=== PATIENT | female | born 1970 | race Caucasian/White ===

== ENCOUNTER 2017-11-08 14:49 | Outpatient (RCR) | payer MEDICARE, SELFPAY ==
--- NOTE | 2017-11-08 15:00 | PTTR_ITS ---
DATE: 11/08/17 SUBJECTIVE: Sarah reports she has been riding her adult tricycle in [facility]. Her mother and care provider attends this activity with her. She sustained one fall from turning too quickly off the edge of the pavement. Admits her R shoulder was quite sore, but this was nearly 3 weeks ago and she feels that these symptoms have resolved. RE-CHECK: Patient's AROM of the R shoulder is non-producing for pain. She has full AROM flexion, IR/ER. (-) horizontal adduction stress test. Neuromuscular Re-education [id number]: Balance, proprioceptive training, working in some static standing positions with feet shoulder width apart. She is now able to tolerate 2 mins of static standing. Therapeutic procedures ([id number]). Stabilization training in quadruped positions with varied arms, knee positions to decrease base of support. When doing so, we do not have to offer much perturbation as this is challenging enough for her. Really work on quality of motion with returning hand to start position she tends to increase her base of support and shift her hips posteriorly. Requires verbal and tactile cues for this. Then worked on some sit to stand transfers, we work on this without assistance, but with supervision, positioning myself anteriorly for her. She does stand- she tends to assume a hyperflexed hip position altering her center of gravity over base of support, so we really work on upright posture getting the shoulder blades back, pulling her trunk back over the base of support with better stability. Still significant ataxia on the L which is quite limiting for her to perform this activity. Direct treatment time: 60 mins Total treatment time: 60 mins A: Still not safe to ambulate independently despite her desire to do so. She is independent in her kitchen along the counter side stepping. She has been doing this independently quite sometime now. With regards to walking with her walker independently, this is not feasible at this time from a safety stand point. Her ataxia is her biggest limiting factor, especially on her L. Very receptive to progression for home program and is very motivated to participate in therapy. NO AC joint involvement following her fall from her tricycle. P: Re-check in one month for review of HEP and progression as needed. MM/dl
== END 2017-11-24 23:59 | disposition home or self-care (01) ==
LOC: PT 14:49
PROVIDERS: PCP Family Medicine; Referring Provider Family Medicine; Visit Provider Family Medicine
DX: I69.393 Ataxia following cerebral infarction (principal)
CPT/HCPCS: 97110; 97112

== ENCOUNTER 2017-12-26 16:34 | Outpatient (REF) | payer MEDICARE, SELFPAY ==
--- NOTE | 2017-12-26 16:00 | PAPFT_PTH ---
PATIENT: Sarah Staley LOC: [facility] U#:[id number] AGE/SX: 47/F ROOM: RE12/26/[address]: Christianne Aldridge MD : 1970 BED: DIS: 12/26/2017 SPEC #: [id number] RECD: 12/26/17 18:21 STATUS: ELY REQ #: [id number] INDERJIT: 12/26/17 16:[address]: Christianne Aldridge DEPT: [facility] Cytology RECD BY: Debbie Skelton ENTERED: 12/26/17 18:22 SP TYPE: PAPFT OTHR DR: Eduardo Willis MD Tissues: 1 - CX/ENDOCX FOR PAP SMEARS Procedures: PAP THIN PREP/UVM Screening HPV DNA PROBE Comments: [id number]
== END 2017-12-26 16:54 ==
LOC: LBN 16:34
PROVIDERS: PCP Family Medicine; Visit Provider Obstetrics & Gynecology
DX: Z12.4 Encounter for screening for malignant neoplasm of cervix (principal); Z11.51 Encounter for screening for human papillomavirus (HPV)
CPT/HCPCS: 88142; 87624

== ENCOUNTER 2017-12-28 00:40 | Outpatient (CLI) | payer MEDICARE, SELFPAY ==
--- NOTE | 2017-12-28 13:38 | DI.COMBO_ITS ---
SYMPTOMS/DIAGNOSIS: RIGHT BREAST MASS, R92.0 RIGHT MAMMOGRAM, ADDITIONAL VIEWS OF THE RIGHT BREAST AND RIGHT BREAST ULTRASOUND: Mammograms were interpreted according to the usual protocol including computer analysis with CAD system, tomosynthesis and C view imaging. Comparison is with the prior examinations. No suspicious masses or microcalcifications are seen. The skin and axillae are unremarkable. A right breast ultrasound was performed. All four quadrants of the right breast were evaluated sonographically. No cystic or solid masses are present. IMPRESSION: No evidence for malignancy. Negative mammogram and ultrasound should not preclude biopsy of a clinically suspicious mass. Yearly mammography is recommended. Category 1, breast density D. The findings were discussed with the patient on the date of the examination. [facility] ASSESSMENT OF FINDINGS: Negative. Category 1. Patient will receive a letter notifying them of these results. BI-RADS category D. The breasts are extremely dense, which lowers the sensitivity of mammography.
== END 2017-12-28 01:00 ==
PROVIDERS: PCP Family Medicine; Visit Provider Obstetrics & Gynecology
DX: N63.10 Unspecified lump in the right breast, unspecified quadrant
CPT/HCPCS: 76642; 77061; 77065; G0279

== ENCOUNTER 2019-05-11 13:17 | Emergency (ER) | payer MEDICARE, SELFPAY ==
[2019-05-11] VITALS (37 sets, daily range): BP systolic 109–144; BP diastolic 65–125; PULSE 70–138; RESP 12–25; TEMP 36.6–36.7; O2SAT 95–100
[2019-05-11] MEDS: Normal Saline 1,000 ML 1000 ML IV (13:34)
[2019-05-11] MEDS: diphenhydrAMINE 50 MG/ML VIAL 25 MG IVP (13:49)
[2019-05-11] MEDS: LORazepam 2 MG/ML VIAL 1 MG IVP (13:50)
--- NOTE | 2019-05-11 13:52 | W.ED.GENAD ---
Discharge Plan Disposition Patient Disposition: [facility] Condition: Serious Discharge Details Chief Complaint: Seizure Clinical Impression: Seizure Primary Care Provider: Eduardo Willis ED Provider: Ish Bhat Home Meds and New Rx's Prescriptions: No Action lorazepam 0.5 mg tablet 0.5 mg PO DAILY PRN (Reason: anxiety) Qty: 20 RF: 0 duloxetine 60 mg capsule,delayed release(DR/EC) 60 mg PO BID Qty: 180 RF: 3 buspirone 15 mg tablet 15 - 30 mg PO BID Qty: 90 RF: 11 Medical Decision Making 14:00 --notified by registration the patient was having seizure-like activity in the car at entrance to emergency department. I ran out with nursing to assist patient. Patient was unresponsive with what appears to be tonic-clonic activity on arrival and had vomited. Patient was transitioned from passenger seat of car to stretcher and wheeled immediately to critical care room. Ms. Staley is a 49-year-old female with prior history of CVA and brain tumor status post resection, with history of chronic ataxia, here with altered mental status after seizure-like activity. Patient is no longer exhibiting tonic-clonic seizure activity. She is quite altered. Patient is agitated and attempting to remove IV and monitor. Restraints were applied to protect patient. Patient was administered Ativan 1 mg IV. This had no significant effect. A second Ativan 1 mg IV and Benadryl 25 mg IV was administered. Patient did seem to calm down and be more relaxed and cooperative after second dose with Benadryl. Screening ECG was reviewed and interpreted by me: Significant artifact due to movement, sinus tachycardia 131 bpm, short NM interval is noted with NM interval of 116. Patient remains altered this time and suspect post ictal. Unclear etiology for seizure activity. Consider recurrent brain mass versus other. Plan to obtain stat CT head. 15:00 --labs reviewed: Anion gap acidosis noted. Patient was given keppra [address] of the head was interpreted by radiology: Left devon-cavernous mass, 3 cm, suspect meningioma. I called [facility] to request transfer. Images have been sent. Awaiting callback. 15:15 -- Spoke with Dr. Caballero who will accept patient in transfer. Awaiting bed availability. Chest x-ray was reviewed and interpreted by radiology: No acute cardiopulmonary findings. Medical Records Medical records reviewed: Yes I reviewed the patient's medical records. 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 Clinic note makes reference to MRI of the brain August 22, 2018 that reveals no diffusion-weighted abnormalities or mass-effect. Postoperative changes of the left retromastoid region status post resection of left cerebellopontine angle/cerebellar lesion with resultant encephalomalacia and gliosis of the left brachium pontis, left cerebellum, dorsal midbrain and left posterior mooeny radiata. Lab Data Lab results reviewed: Yes I reviewed the patient's lab results. HPI General Date/Time Provider Initiated Documentation: 05/11/19 13:21. Limitations to Documentation: altered mental status. Information obtained by: family. HPI Narrative: 49-year-old female with prior history of brain tumor status post resection, CVA, depression, arrives by private vehicle with friend/alley cleaner with altered mental status. History and review of systems limited secondary to altered mental status. Per the patient's friend/alley cleaner, patient was at primary care appointment with Dr. Burrell across the street, completed appointment and ambulated to the car with assistance at baseline. Shortly thereafter she was nonresponsive to questioning, started making incomprehensible noises and then had full body spasm. Entire episode lasted a few minutes. She did vomit. Stave Hewer/friend notes that Sarah is fairly high functioning on her own but that she has had noticeable decline in mentation, specifically noting confusion, worsening over the past few months. Related Data Home Medications Medication Instructions Recorded Confirmed duloxetine 60 mg capsule,delayed 60 mg PO BID #180 cap 08/21/18 05/11/19 release lorazepam 0.5 mg tablet 0.5 mg PO DAILY PRN #20 tab 09/27/18 05/11/19 buspirone 15 mg tablet 15 - 30 mg PO BID #90 tab-cap 05/06/19 05/11/19 Previous Rx's Medication Instructions Recorded duloxetine 60 mg capsule,delayed 60 mg PO BID #180 cap 08/21/18 release lorazepam 0.5 mg tablet 0.5 mg PO DAILY PRN #20 tab 09/27/18 buspirone 15 mg tablet 15 - 30 mg PO BID #90 tab-cap 05/06/19 Allergies Allergy/AdvReac Type Severity Reaction Status Date / Time bupropion AdvReac Severe MENTAL Verified 11/28/18 15:17 STATUS CHANGE oxycodone AdvReac Intermediate night harper Unverified 11/28/18 15:17 General Stated Complaint: Seizure NETO: 2 Review of Systems Unobtainable due to mental status [facility] Medical History 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 Anupama PARSONS Colonoscopy - MAC (05/24/13) Colonoscopy - MAC (06/19/17) Excision, Lesion (06/07/16) sacral lesion, fibroadipose tissue Excision, Lipoma (04/04/14) ABDOMINAL WALL Tonsillectomy (~1997) Family History Mother Diabetes Heart disease Hyperlipidemia Father Diabetes Essential hypertension Heart disease Hyperlipidemia Sister Diabetes Depression Brother , AGE 32 Stroke Essential hypertension Hyperlipidemia Maternal Grandfather Diabetes Stroke Paternal Grandfather No problems noted. Maternal Grandmother No problems noted. Paternal Grandmother Alzheimer disease Depression Daughter Essential hypertension Depression Social History Smoking/Tobacco Use Status: Former Tobacco Use Tobacco: How many years used: 30 Quit status: has quit before Alcohol Intake: current Alcohol Intake frequency: a few times a month Alcohol type: beer, wine and hard liquor Drug use: Never Substance use type: does not use Caregiver/Support person: No Household members: none Housing: other Details: [facility] current occupation: disable Sexually active: No Do you think of yourself as: straight/heterosexual Current gender identity: female Duration: 60-90 minutes/day Frequency: 5-6 times per week Opal/Anglican: No preference Special opal needs: No Seatbelt use: always Additional Social history: Unable to obtain this information upon arrival. Exam Const General: in distress, anxious and combative Orientation: confused Limitations: altered mental status [facility] Head: normocephalic and atraumatic Mouth: moist mucous membranes Eyes Sclera: normal sclerae Neck Neck: trachea midline and supple Resp Auscultation: clear to auscultation bilaterally, no rales, no rhonchi and no wheezes Cardio Jugular venous pressure: no JVD Rate: tachycardic Rhythm: regular rhythm Heart Sounds: no murmurs GI Palpation: soft, not firm, no guarding, no masses, not rigid and nontender Skin General skin exam: no rashes or lesions noted Neuro General: moves all extremities, confused and other (nonverbal on arrival) Cognition: abnormal cognition Extrem General: no edema Psych Appearance: grossly normal Mental Status: mental status grossly abnormal Course Vital Signs Vital signs: Vital Signs Temperature 36.6 C 05/11/19 13:27 Pulse 112 H 05/11/19 13:27 Respiratory Rate 21 05/11/19 13:27 Blood Pressure 138/85 05/11/19 13:27 Pulse Oximetry 95 05/11/19 13:27 Temperature 36.6 C 05/11/19 13:27 Temperature Source Tympanic 05/11/19 13:27 Pulse 112 H 05/11/19 13:27 Respiratory Rate 21 05/11/19 13:27 Blood Pressure 138/85 05/11/19 13:27 Blood Pressure Position Sitting 05/11/19 13:27 Pulse Oximetry 95 05/11/19 13:27 Oxygen Delivery Method Room Air 05/11/19 13:27 Oxygen Flow Rate 0 05/11/19 13:27
[2019-05-11 13:55] LABS: Abs Immature Grans 0.02 k/cumm (0.0-0.09); Absolute Basophil Count 0.02 k/cumm (0.0-0.2); Absolute Eosinophil Count 0.02 k/cumm (0.0-0.7); Absolute Lymphocyte Count 2.77 k/cumm (1.2-3.4); Absolute Monocyte Count 0.81 k/cumm (0.11-0.7); Absolute Neutrophil Count 5.16 k/cumm (1.2-6.7); Basophils % 0.2; Eosinophils % 0.2; HCT 46.4 % (36.0-46.0); HGB 14.8 g/dL (12.0-15.5); Immature Grans % 0.2 %; Lymphocytes % 31.5; Mean Corp. HGB Concentration 31.9 g/dL (32.0-36.0); Mean Corpuscular Hemoglobin 27.3 pg (27.0-33.0); Mean Corpuscular Volume 85.5 fL (80-95); Mean Platelet Volume 10.3 fL (8.0-11.0); Monocytes % 9.2; Neutrophils % 58.7; Platelet Count 350 x1000/uL (130-400); RBC 5.43 m/cumm (4.00-5.20); RBC Distribution Width 14.7 % (11.7-14.6)
--- NOTE | 2019-05-11 14:00 | DI.CT_ITS ---
EXAM: CT HEAD WO CLINICAL HISTORY: AMS TECHNIQUE: The exam was performed without contrast. COMPARISON: Comparison with prior examinations. FINDINGS: There is a hyperdense mass measuring 3.1 cm in maximum diameter. The mass is located in the left per i cavernous and Yadi sellar region. It encroaches on the left suprasellar cistern. There is unchanged encephalomalacia involving the left cerebellum, left temporal lobe and the left ce rebella peduncles. The patient has had a prior left occipital craniotomy. No acute intracranial hemorrhage, midline shift or mass effect. No destructive osseous changes are present. The visualized paranasal sinuses are clear as are the ma stoid air cells. IMPRESSION: 3.1 centimeter hyperdense mass in the left cavernous sinus region and parasellar region. Given its a ppearance, meningioma should be considered. Recurrence of the patient's primary neoplasm cannot be e xcluded. A post contrast CT or postcontrast MRI is recommended for further evaluation.
--- NOTE | 2019-05-11 14:05 | DI.RAD_ITS ---
EXAM: XR PORTABLE CHEST AP CLINICAL HISTORY: AMS. TECHNIQUE: 2D digital imaging was performed. COMPARISON: CHEST 2 VIEWS PA,LAT from 06/23/2015 FINDINGS: LUNGS: Clear. No pleural abnormality seen. HEART: Normal. MEDIASTINUM: Normal. OTHER FINDINGS: None. IMPRESSION: No acute pulmonary findings.
--- NOTE | 2019-05-11 14:05 | NUR.NOTE ---
Nursing Note: Restraints removed at this for CT. Pt cooperating for exam. MD Bhat approves the removal of four point restraints at this time.
[2019-05-11 14:08] LABS: ALT 16 U/L (14-59); AST 12 U/L (15-37); Albumin 4.6 g/dL (3.4-5.0); Alkaline Phosphatase 68 U/L (46-116); Anion Gap 22.2 mmol/L (3-11); BUN 10 mg/dL (7-18); Bilirubin, Total 0.5 mg/dL (0.2-1.0); CO2 21.8 mmol/L (21.0-32.0); CREATININE 1.19 mg/dL (0.55-1.02); Calcium 9.1 mg/dL (8.5-10.1); Chloride 100 mmol/L (98-107); ETHANOL BLOOD 3.3 mg/dL (<3); Estimated GFR 48.62 (mL/min/1.73m2); Glucose 103 mg/dL (74-106); Magnesium 2.3 mg/dL (1.8-2.4); Potassium 3.4 mmol/L (3.5-5.1); Sodium 144 mmol/L (136-145); Total Protein 8.2 g/dL (6.4-8.2); Troponin I < 0.05 ng/Ml (<0.06)
[2019-05-11 14:09] LABS: Acetaminophen < 2 ug/mL (10-30)
--- NOTE | 2019-05-11 14:09 | NUR.NOTE ---
Nursing Note: CVA during surgery to remove brain tumor. Family reports deficits to speech and all upper and lower extremities.
--- NOTE | 2019-05-11 14:38 | RESPIRATORY ---
RT called to ED concerning a seizing patient in the parking lot. Upon RT's arrival, Pt was on 2L NC sating in 90s and upset. Once given benadryl, Pt calmed down and RT titrated O2 to 1L prior to going to CT. In CT, patient was on RA and then placed on 2L once back in ER bc of SpO2 being in the 80s. Once patient settled back into room, Rt titrated patients O2 back to 1L then RA. RT informed Dr and Nurse patient was ok and left.
--- NOTE | 2019-05-11 14:39 | NUR.NOTE ---
Nursing Note: Prior to medication administration, Pt was able to answer all questions appropriately and follow commands. At this time Pt is resting comfortably, vitals stable.
[2019-05-11 14:52] LABS: Bilirubin Negative (Negative); Blood Negative (Negative); Clarity Sl Cloudy (Clear); Glucose Negative (Negative); Ketones Negative (Negative); Leukocyte Esterase Negative (Negative); Nitrite Negative (Negative); Urobilinogen 0.2 EU/dL (Up TO 0.2)
[2019-05-11] MEDS: levETIRAcetam 1,000 MG in Normal Saline 100 ML 400 MG IVPB (14:58)
[2019-05-11 15:03] LABS: Tricyclic Antidepressants Negative (Negative)
[2019-05-11 15:06] LABS: *AMPHETAMINES SCREEN URINE Negative (Negative); *BARBITURATES SCREEN URINE Negative (Negative); *BENZODIAZEPINES SCREEN URINE Negative (Negative); Cannabinoids THC POSITIVE (Negative); Cocaine Screen,Urine Negative (Negative); METHADONE URINE SCREEN Negative (Negative); OPIATES URINE SCREEN Negative (Negative)
--- NOTE | 2019-05-11 15:08 | DI.VRAD_ITS ---
PROCEDURE INFORMATION: Exam: CT Head Without Contrast Exam date and time: 05/11/2019 2:00 PM Age: 49 years old Clinical indication: Other: AMS TECHNIQUE: Imaging protocol: Computed tomography of the head without contrast. Radiation optimization: All CT scans at this facility use at least one of these dose optimization techniques: automated exposure control; mA and/or kV adjustment per patient size (includes targeted exams where dose is matched to clinical indication); or iterative reconstruction. Other technique: STROKE PROTOCOL was implemented. COMPARISON: CT HEAD WITH/WITHOUT CONTRAST 03/04/2013 2:27 PM FINDINGS: Brain: Left pericavernous/parasellar mildly hyperdense mass measuring approximately 3 cm in maximal dimension. There is encroachment of the mass into the left suprasellar cistern. Stable low-attenuation within the cerebellar peduncles (left greater than right) and left cerebellum as sequelae prior infarction and/or craniectomy. Left temporal lobe white matter low attenuation likely sequela of prior infarction. There is no evidence of acute hemorrhage within the brain parenchyma or the subarachnoid space. There is no evidence of an acute ischemic event. There is no significant ventricular effacement or midline shift.There is no evidence of uncal or subfalcine herniation. Ventricles: Ex vacuo dilatation of the posterior left lateral ventricle. Bones/joints: No definitive clinoid osseous erosion or expansion. Left low occipital craniectomy changes. Sinuses: Visualized sinuses are unremarkable. No fluid levels. Mastoid air cells: Visualized mastoid air cells are well aerated. Soft tissues: Debris within the left external auditory canal. IMPRESSION: 1. Left pericavernous/parasellar mildly hyperdense mass measuring approximately 3 cm in maximal dimension. There is encroachment of the mass into the left suprasellar cistern. No definitive left clinoid osseous erosion or expansion. Meningioma is high on the differential diagnosis. Recommend contrast-enhanced MRI if available. 2. There is no evidence of an acute ischemic event. 3. Prior left low occipital craniectomy changes. 4. Other chronic and senescent changes as above. ASSESSMENT: ASPECTS ([place] Stroke Program Early CT Score) is 10. THIS REPORT CONTAINS FINDINGS THAT MAY BE CRITICAL TO PATIENT CARE. The findings were verbally communicated via telephone conference with Dr. Bhat at 2:53 PM EST on 05/11/2019. The findings were acknowledged and understood. Dictated and Authenticated by: Justino Begum MD. Ordering:MUMTAZ Mantilla MD
--- NOTE | 2019-05-11 15:16 | DI.VRAD_ITS ---
PROCEDURE INFORMATION: Exam: XR Chest, 1 View Exam date and time: 05/11/2019 2:10 PM Age: 49 years old Clinical indication: Other: AMS; Additional info: Patients unable to follow instructions, or breathing instructions. TECHNIQUE: Imaging protocol: XR of the chest Views: 1 view. COMPARISON: CR CHEST 2 VIEWS PA,LAT 06/23/2015 1:25 PM FINDINGS: Lungs: Unremarkable. No consolidation. Pleural space: Unremarkable. No pleural effusion. No pneumothorax. Heart/Mediastinum: Unremarkable. No cardiomegaly. Vasculature: Mild atherosclerotic calcification of the aorta arch. Bones/joints: Unremarkable. IMPRESSION: No acute cardiopulmonary findings. Dictated and Authenticated by: Justino Begum MD. Ordering:MUMTAZ Mantilla MD
== END 2019-05-11 16:30 | disposition short-term general hospital (02) ==
PROVIDERS: Physician Assistant; Emergency Provider Student in an Organized Health Care Education/Training Program; PCP Family Medicine
DX: R56.9 Unspecified convulsions (principal); R41.82 Altered mental status, unspecified; I69.393 Ataxia following cerebral infarction; R45.1 Restlessness and agitation; R90.0 Intracranial space-occupying lesion found on diagnostic imaging of central nervous system; Z78.1 Physical restraint status
CPT/HCPCS: 36415; 36416; 51702; 80053; 80307; 82962; 93005; 96361; 96365; 96366; 96375; 99285; 70450; 71045; 80320; 80329; 81003; 83735; 84484; 85025; 93010; J1200; J1953; J2060

== ENCOUNTER 2019-11-06 10:14 | Outpatient (CLI) | payer MEDICARE, SELFPAY ==
[2019-11-06 12:26] LABS: Abs Immature Grans 0.01 10^3/uL (0.0-0.06); Absolute Basophil Count 0.01 10^3/uL (0.0-0.2); Absolute Eosinophil Count 0.08 10^3/uL (0.0-0.7); Absolute Lymphocyte Count 1.38 10^3/uL (1.2-3.4); Absolute Monocyte Count 0.46 10^3/uL (0.1-0.8); Absolute Neutrophil Count 3.16 10^3/uL (1.2-6.7); Basophils % 0.2; Eosinophils % 1.6; HCT 41.5 % (36.0-46.0); HGB 13.1 g/dL (11.2-15.7); Immature Grans % 0.2; Lymphocytes % 27.1; MCHC 31.6 % (32.0-36.0); MCV 85.4 fL (80-95); MPV 9.9 fL (8.0-11.0); Neutrophils % 61.9; Nucleated RBC 0 %; Platelet Count 283 10^3/uL (130-400); RBC 4.86 10^6/uL (3.93-5.22); RDW 15.1 % (11.7-14.6); RDW-SD 46.4 fL
[2019-11-06 12:38] LABS: ALT 18 U/L (14-59); AST 13 U/L (15-37); Albumin 3.8 g/dL (3.4-5.0); Alkaline Phosphatase 74 U/L (46-116); Bilirubin, Direct 0.06 mg/dL (0.00-0.20); Bilirubin, Total 0.2 mg/dL (0.2-1.0); Total Protein 6.6 g/dL (6.4-8.2)
== END 2019-11-06 10:34 ==
PROVIDERS: PCP Family Medicine; Visit Provider Psychiatry & Neurology Neurology
DX: R56.9 Unspecified convulsions (principal); Z79.899 Other long term (current) drug therapy; Z51.81 Encounter for therapeutic drug level monitoring
CPT/HCPCS: 36415; 80076; 80185; 85025

== ENCOUNTER 2019-11-15 00:53 | Outpatient (CLI) | payer MEDICARE, SELFPAY ==
[2019-11-15 12:50] LABS: Absolute Basophil Count 0.02 10^3/uL (0.0-0.2); Absolute Eosinophil Count 0.06 10^3/uL (0.0-0.7); Absolute Lymphocyte Count 1.16 10^3/uL (1.2-3.4); Absolute Monocyte Count 0.42 10^3/uL (0.1-0.8); Absolute Neutrophil Count 2.24 10^3/uL (1.2-6.7); Basophils % 0.5; Eosinophils % 1.5; HCT 41.4 % (36.0-46.0); HGB 13.5 g/dL (11.2-15.7); Lymphocytes % 29.7; MCH 27.3 pg (27.0-33.0); MCHC 32.6 % (32.0-36.0); MCV 83.6 fL (80-95); MPV 10.2 fL (8.0-11.0); Monocytes % 10.8; Neutrophils % 57.5; Nucleated RBC 0 %; Platelet Count 223 10^3/uL (130-400); RBC 4.95 10^6/uL (3.93-5.22); RDW 15.1 % (11.7-14.6); RDW-SD 46.1 fL
[2019-11-15 13:05] LABS: ALT 38 U/L (14-59); AST 19 U/L (15-37); Alkaline Phosphatase 77 U/L (46-116); Bilirubin, Direct 0.06 mg/dL (0.00-0.20); Bilirubin, Total 0.2 mg/dL (0.2-1.0); Total Protein 6.8 g/dL (6.4-8.2)
[2019-11-15 13:09] LABS: PHENYTOIN (DILANTIN) 18.2 ug/mL (10.0-20.0)
[2019-11-20 10:35] LABS: Phenytoin, Free 1.8 mcg/mL
== END 2019-11-15 01:13 ==
PROVIDERS: PCP Family Medicine; Visit Provider Psychiatry & Neurology Neurology
DX: R56.9 Unspecified convulsions (principal); Z51.81 Encounter for therapeutic drug level monitoring; Z79.899 Other long term (current) drug therapy
CPT/HCPCS: 36415; 80076; 80186; 80185; 85025

== ENCOUNTER 2020-02-13 10:19 | Outpatient (CLI) | payer MEDICARE, SELFPAY ==
[2020-02-13 12:52] LABS: Abs Immature Grans 0.01 10^3/uL (0.0-0.06); Absolute Basophil Count 0.02 10^3/uL (0.0-0.2); Absolute Lymphocyte Count 1.35 10^3/uL (1.2-3.4); Absolute Monocyte Count 0.44 10^3/uL (0.1-0.8); Absolute Neutrophil Count 2.46 10^3/uL (1.2-6.7); Basophils % 0.5; Eosinophils % 2.3; HCT 41.8 % (36.0-46.0); HGB 13.6 g/dL (11.2-15.7); Immature Grans % 0.2; Lymphocytes % 30.8; MCH 27.6 pg (27.0-33.0); MCHC 32.5 % (32.0-36.0); MPV 9.8 fL (8.0-11.0); Neutrophils % 56.2; Nucleated RBC 0 %; Platelet Count 226 10^3/uL (130-400); RBC 4.92 10^6/uL (3.93-5.22); RDW 13.2 % (11.7-14.6); RDW-SD 40.9 fL; WBC 4.38 10^3/uL (4.4-10.8)
[2020-02-13 13:46] LABS: PHENYTOIN (DILANTIN) 9.7 ug/mL (10.0-20.0)
[2020-02-13 13:50] LABS: ALT 23 U/L (14-59); AST 16 U/L (15-37); Albumin 3.7 g/dL (3.4-5.0); Alkaline Phosphatase 109 U/L (46-116); Bilirubin, Direct 0.05 mg/dL (0.00-0.20); Bilirubin, Total 0.2 mg/dL (0.2-1.0); Total Protein 6.8 g/dL (6.4-8.2)
== END 2020-02-13 10:39 ==
PROVIDERS: PCP Family Medicine; Visit Provider Psychiatry & Neurology Neurology
DX: R56.9 Unspecified convulsions (principal)
CPT/HCPCS: 36415; 80076; 80185; 85025

== ENCOUNTER 2020-09-02 09:16 | Outpatient (CLI) | payer MEDICARE, SELFPAY ==
--- NOTE | 2020-09-02 | DI.CT_ITS ---
Exam(s) CT HEAD WO EXAM: CT HEAD WO CLINICAL HISTORY: SEIZURE, R56.9,HEMANGIOPERICYTOMA. TECHNIQUE: Imaging Protocol: Axial computed tomography images with coronal and sagittal reformatted images were created and reviewed COMPARISON: CT CT HEAD WO from 05/11/2019 FINDINGS: There is a craniotomy defect seen in the left temporal bone as well as left frontal parietal region. No skull fracture. There is an area of encephalomalacia seen in the left cerebellum and atrophy inv olving the left cerebral peduncle and portion of the left temporal lobe. There is some compensatory d ilatation of the left lateral ventricle related to volume loss. The previously noted mass in the left frontal temporal lobes and devon sellar region is no longer seen . No new mass, hemorrhage or infarct is seen. The sinuses and mastoid air cells are clear where visualized. On the orbits are unremarkable. IMPRESSION: Craniotomy defects and areas of encephalomalacia in the left temporal lobe and left cerebellum. Prev iously noted left parasellar mass no longer seen. No acute abnormality. RADIATION DOSE DELIVERED: 721.03mGy.cm Total DLP DATA REPOSITORY: All CT scans at this facility are submitted to the National Radiology Data Registry (NRDR) Dose Index Registry (DIR) with the [employer] (ACR). RADIATION OPTIMIZATION: All CT scans at this facility use at least one of these dose optimization te chniques: automated exposure control; mA and/or kV adjustment per patient size (includes targeted exa ms where dose is matched to clinical indication); or iterative reconstruction.
== END 2020-09-02 09:36 ==
PROVIDERS: PCP Family Medicine; Visit Provider Internal Medicine
DX: R56.9 Unspecified convulsions (principal); C71.9 Malignant neoplasm of brain, unspecified
CPT/HCPCS: 70450

== ENCOUNTER 2020-09-02 15:51 | Outpatient (CLI) | payer MEDICARE, SELFPAY ==
[2020-09-02 17:00] LABS: Abs Immature Grans 0.01 10^3/uL (0.0-0.06); Absolute Basophil Count 0.01 10^3/uL (0.0-0.2); Absolute Eosinophil Count 0.04 10^3/uL (0.0-0.7); Absolute Lymphocyte Count 1.35 10^3/uL (1.2-3.4); Absolute Monocyte Count 0.54 10^3/uL (0.1-0.8); Absolute Neutrophil Count 2.72 10^3/uL (1.2-6.7); Basophils % 0.2; Eosinophils % 0.9; HCT 35.8 % (36.0-46.0); HGB 12.2 g/dL (11.2-15.7); Immature Grans % 0.2; Lymphocytes % 28.9; MCH 27.9 pg (27.0-33.0); MCHC 34.1 % (32.0-36.0); MCV 81.7 fL (80-95); MPV 9.3 fL (8.0-11.0); Monocytes % 11.6; Neutrophils % 58.2; Nucleated RBC 0 %; Platelet Count 237 10^3/uL (130-400); RBC 4.38 10^6/uL (3.93-5.22); RDW 13.2 % (11.7-14.6); RDW-SD 39.3 fL; WBC 4.67 10^3/uL (4.4-10.8)
[2020-09-02 17:25] LABS: PHENYTOIN (DILANTIN) 9.1 ug/mL (10.0-20.0)
[2020-09-02 17:30] LABS: ALT 25 U/L (14-59); AST 34 U/L (15-37); Albumin 3.7 g/dL (3.4-5.0); Alkaline Phosphatase 88 U/L (46-116); BUN 6 mg/dL (7-18); Bilirubin, Total 0.3 mg/dL (0.2-1.0); CREATININE 0.7 mg/dL (0.55-1.02); Calcium 8.5 mg/dL (8.5-10.1); Chloride 95 mmol/L (98-107); Glucose 105 mg/dL (74-106); Sodium 132 mmol/L (136-145); Total Protein 6.4 g/dL (6.4-8.2)
== END 2020-09-02 15:52 | disposition home or self-care (01) ==
LOC: LBO 15:51
PROVIDERS: PCP Family Medicine; Visit Provider Internal Medicine
DX: R56.9 Unspecified convulsions (principal); Z51.81 Encounter for therapeutic drug level monitoring; Z79.899 Other long term (current) drug therapy; C71.9 Malignant neoplasm of brain, unspecified
CPT/HCPCS: 36415; 80053; 70450; 80185; 85025

== ENCOUNTER 2020-11-08 14:12 | Emergency (ER) | payer MEDICARE, SELFPAY ==
[2020-11-08] VITALS (14 sets, daily range): BP systolic 125–126; BP diastolic 83–101; PULSE 64–86; RESP 12–20; TEMP 36.9; O2SAT 96–100
--- NOTE | 2020-11-08 14:15 | RT.EKG_ITS ---
APPROVED REPORT Exam: Resting ECG Reason for Exam: stroke symptoms Patient Location: E HR:70 bpm ECG Measurements Heart Rate 70 AXIS MO 140 P 72 QRSd 85 QRS 54 QT 400 T 53 QTc 431 Conclusion Sinus rhythm...normal P axis, V-rate 60- 99
--- NOTE | 2020-11-08 14:37 | ED.GENADUL_ITS ---
Discharge Plan Disposition Patient Disposition: [facility] INPATIENT Condition: Stable Discharge Details Chief Complaint: CVA/TIA Clinical Impression: Dysarthria, Hyponatremia, Bacteria in urine Primary Care Provider: Eduardo Willis ED Provider: Carl Munson [place] Meds and New Rx's Prescriptions: No Action lorazepam 0.5 mg tablet 0.5 mg PO DAILY PRN (Reason: anxiety) Qty: 20 RF: 0 levetiracetam 750 mg tablet 1,500 mg PO BID Qty: 120 RF: 5 buspirone 15 mg tablet 15 - 30 mg PO BID Qty: 90 RF: 11 phenytoin sodium extended 100 mg capsule 100 mg PO BID Qty: 60 RF: 11 duloxetine 60 mg capsule,delayed release(DR/EC) 60 mg PO BID Qty: 180 RF: 3 Medical Decision Making 50 yo female with hx of seizure, meningioma, prior cva, who comes in with chief complaint of slurred speech as well as confusion. Her last known well apparently per ems was yesterday aroud 10am when family members talked to her and she had normal speech. They called her this afternoon and her speech was slurred and she seems confused so ems was called. She arrives hemodynamically stable and awake. SHe knows where she is, her name and theyear. She has mild swelling above the right eye and apparently has fallen recently per ems history, has a small 1cm laceration lateral to the orbit. Given over 24 hours since the fall will heal by secondary intention. She has no other signs of trauma. She has dysarthria and is very hard to understand most of what she is saying on exam. She denies any pain anywhere. She has right lower face droop on exam. Her NIH on exam is 5 (2 for facial palsy, 1 for language/aphasia, 2 for dysarthria). Suspect cva less likely bells palsy as the forehead is spared. Will obtain labs and ct imaging and reassess. pt's labs unremarkable other than sodium of 125 and ua does have bacteria in it, ceftriaxone ordered. She remains stable, no acute findings on ct imaging. Discussed with Dr. Otto who requested neuro consult from [facility] [place] given her history. Spoke with Dr. Leblanc from neurology at [facility] [place] who did not have any additional recommenations other than routine cva workup including mri, asa, echo. Differential Diagnosis Differential Diagnosis: cva, electrolyte abnormality, uti Lab Data Lab results reviewed: Yes I reviewed the patient's lab results. ECG Data Attestation: I personally reviewed and interpreted this ECG (s) as follows: Prior ECG tracings: not available for review Interpretation: sinus rhythm, rate of 70, pr 140, no acute st t wave ischemic findings HPI General Mode of arrival: ambulatory . Date/Time Provider Initiated Documentation: 11/08/20 14:22 . Limitations to Documentation: no limitations . Information obtained by: EMS . History of Present Illness 50 year old F presents to the emergency department with the chief complaint of slurred speech, described as moderate, Patient started experiencing this unknown and it has been constant. No relieving factors improve symptom(s), No exacerbating factors reported . Patient notes confusion. Patient did receive the following treatments prior to arrival, none Related Data Home Medications Medication Instructions Recorded Confirmed lorazepam 0.5 mg tablet 0.5 mg PO DAILY PRN #20 tab 09/27/18 11/08/20 levetiracetam 750 mg tablet 1,500 mg PO BID #120 tab 10/31/19 11/08/20 buspirone 15 mg tablet 15 - 30 mg PO BID #90 tab-cap 06/01/20 11/08/20 phenytoin sodium extended 100 mg 100 mg PO BID #60 cap 07/09/20 11/08/20 capsule duloxetine 60 mg capsule,delayed 60 mg PO BID #180 cap 10/19/20 11/08/20 release Previous Rx's Medication Instructions Recorded lorazepam 0.5 mg tablet 0.5 mg PO DAILY PRN #20 tab 09/27/18 levetiracetam 750 mg tablet 1,500 mg PO BID #120 tab 10/31/19 buspirone 15 mg tablet 15 - 30 mg PO BID #90 tab-cap 06/01/20 phenytoin sodium extended 100 mg 100 mg PO BID #60 cap 07/09/20 capsule duloxetine 60 mg capsule,delayed 60 mg PO BID #180 cap 10/19/20 release Allergies Allergy/AdvReac Type Severity Reaction Status Date / Time bupropion AdvReac Severe MENTAL Verified 11/08/20 14:33 STATUS CHANGE oxycodone AdvReac Intermediate night harper Verified 11/08/20 14:33 General Stated Complaint: CVA/TIA NETO: 2 Review of Systems All systems reviewed & are unremarkable except as noted in HPI and below Constitutional Constitutional: Denies chills and Denies fever(s) Cardiovascular Cardiovascular: Denies chest pain and Denies dyspnea Respiratory Respiratory: Denies cough and Denies dyspnea Gastrointestinal Gastrointestinal: Denies abdominal pain, Denies nausea and Denies vomiting [facility] Medical History 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 Anupama PARSONS Colonoscopy - MAC (05/24/13) Colonoscopy - MAC (06/19/17) Excision, Lesion (06/07/16) sacral lesion, fibroadipose tissue Excision, Lipoma (04/04/14) ABDOMINAL WALL Tonsillectomy (~1997) Family History Mother Diabetes Heart disease Hyperlipidemia Father Diabetes Essential hypertension Heart disease Hyperlipidemia Sister Diabetes Depression Brother , AGE 32 Stroke Essential hypertension Hyperlipidemia Maternal Grandfather Diabetes Stroke Paternal Grandfather No problems noted. Maternal Grandmother No problems noted. Paternal Grandmother Alzheimer disease Depression Daughter Essential hypertension Depression Social History Smoking/Tobacco Use Status: Former Tobacco Use Tobacco: How many years used: 30 Quit status: has quit before Smoking risk assessment performed?: Yes Alcohol Intake: current Alcohol Intake frequency: a few times a month Alcohol type: beer, wine and hard liquor Drug use: Never Substance use type: does not use Caregiver/Support person: No Household members: none Housing: other Details: [facility] current occupation: disable Sexually active: No Do you think of yourself as: straight/heterosexual Current gender identity: female Duration: 60-90 minutes/day Frequency: 5-6 times per week Opal/Lutheran: No preference Special opal needs: No Seatbelt use: always Additional Social history: Unable to obtain this information upon arrival. Exam Const General: no acute distress Orientation: alert HENMT Head: no palpable skull fracture Ears: external ears normal General nose exam: external nose normal Mouth: moist mucous membranes Eyes Pupils: PERRL Neck Neck: normal visual inspection Resp Effort & Inspection: normal respiratory effort and able to speak in complete sentences Cardio Rate: regular rate Skin General skin exam: no rashes or lesions noted Neuro General: patient alert Extrem General: normal to inspection Psych Mental Status: mental status grossly normal Course Vital Signs Vital signs: Vital Signs Temperature 36.9 C 11/08/20 14:19 Pulse 72 11/08/20 14:19 Blood Pressure 125/83 11/08/20 14:19 Pulse Oximetry 96 11/08/20 14:19 Temperature 36.9 C 11/08/20 14:19 Temperature Source Temporal Artery Scan 11/08/20 14:19 Pulse 72 11/08/20 14:19 Respiratory Rate 13 11/08/20 14:26 Respiratory Effort Non-Labored 11/08/20 14:26 Respiratory Depth Normal 11/08/20 14:26 Respiratory Pattern Normal 11/08/20 14:26 Blood Pressure 125/83 11/08/20 14:19 Blood Pressure Position Supine 11/08/20 14:19 Pulse Oximetry 96 11/08/20 14:19 Oxygen Delivery Method Room Air 11/08/20 14:19 Oxygen Flow Rate 0 11/08/20 14:19
[2020-11-08 14:52] LABS: Absolute Basophil Count 0.01 10^3/uL (0.0-0.2); Absolute Eosinophil Count 0.03 10^3/uL (0.0-0.7); Absolute Lymphocyte Count 0.79 10^3/uL (1.2-3.4); Absolute Monocyte Count 0.58 10^3/uL (0.1-0.8); Absolute Neutrophil Count 2.76 10^3/uL (1.2-6.7); Basophils % 0.2; Eosinophils % 0.7; HCT 34.2 % (36.0-46.0); HGB 11.8 g/dL (11.2-15.7); Lymphocytes % 18.9; MCH 27.8 pg (27.0-33.0); MCHC 34.5 % (32.0-36.0); MCV 80.5 fL (80-95); MPV 8.4 fL (8.0-11.0); Monocytes % 13.9; Neutrophils % 66.3; Nucleated RBC 0 %; Platelet Count 230 10^3/uL (130-400); RBC 4.25 10^6/uL (3.93-5.22); RDW 12.3 % (11.7-14.6); RDW-SD 35.7 fL; WBC 4.17 10^3/uL (4.4-10.8)
[2020-11-08] MEDS: Omnipaque 350 MG/ML 100 ML BTL 85 ML IJ (15:05)
[2020-11-08] MEDS: Normal Saline - Diluent 50 ML VIAL IV (15:06)
[2020-11-08 15:07] LABS: ALT 18 U/L (14-59); AST 25 U/L (15-37); Albumin 3.6 g/dL (3.4-5.0); Alkaline Phosphatase 93 U/L (46-116); Anion Gap 4.1 mmol/L (3-11); BUN 5 mg/dL (7-18); Bilirubin, Total 0.3 mg/dL (0.2-1.0); CO2 30.9 mmol/L (21.0-32.0); CREATININE 0.6 mg/dL (0.55-1.02); Calcium 8.4 mg/dL (8.5-10.1); Chloride 90 mmol/L (98-107); Glucose 92 mg/dL (74-106); Potassium 3.8 mmol/L (3.5-5.1); Total Protein 6.7 g/dL (6.4-8.2)
[2020-11-08 15:08] LABS: Sodium 125 mmol/L (136-145); Troponin I < 0.05 ng/mL (<0.06)
--- NOTE | 2020-11-08 15:15 | DI.CT_ITS ---
Exam(s) CT BRAIN CTA EXAM: CT BRAIN CTA CLINICAL HISTORY: stroke symptoms, slurred speech, confusion. TECHNIQUE: Imaging Protocol: Both noninfused and contrast infused CT scans of the brain were perform ed. IV Contrast Dose =85 cc Axial computed tomography images with coronal and sagittal reformatted images were created and review ed COMPARISON: CT CT HEAD WO from 09/02/2020 FINDINGS: Again noted is evidence of left sided frontal, temporal, and occipital craniotomy. Areas of encepha lomalacia in the left posterior fossa-left cerebellum and left temporal lobe with ipsilateral ex vacu o dilatation of the lateral ventricle this level again noted. There are no ring enhancing lesions in the brain and no new abnormal meningeal enhancement. Size of the ventricles is unchanged. No obvio us intracranial hemorrhage. ANTERIOR CIRCULATION: The right internal carotid artery performed is a significant loop in the upper right neck prior to entering the skull base. The left internal carotid artery does not exhibit a sim ilar loop at this location. Both vessels are patent at these levels. Both internal carotid arteries are patent in the skull base-carotid canals as well as within the cavernous sinuses. The supraclino id aspects of these vessels are patent and nonaneurysmal.. Middle cerebral arteries are patent. A1 segments are thin-hypoplastic bilaterally but patent. Anterior cerebral arteries are both patent. T here is no evidence of aneurysm at the level of the anterior communicating artery. POSTERIOR CIRCULATION: The basilar artery is formed at the skull base by contribution from 2 thin jina tebral arteries, with the right vertebral artery being the dominant contributor. The basilar artery ascends with thin diameter. Distally the posterior cerebral arteries appear to be fed predominantly by posterior communicating arteries on both sides of the [id number], this persistent circ ulation most probably accounting for the thin diameter of the basilar artery. There is no evidence o f aneurysm at tip of the basilar artery. The right superior cerebellar artery is opacified. The lef t superior cerebellar artery is not opacified, this commensurate with the encephalomalacia in its ter ritory in left side of the posterior fossa. IMPRESSION: Postsurgical changes as described above, exhibiting minimal if any significant change compared to the prior CT scan of 09/02/2020. Patent intracranial arteries as described above. However, the left superior cerebellar arteries is n ot opacified, presumed occluded, and this is most probably related to the encephalomalacia in its ter ritory in the left side of the posterior fossa.. RADIATION DOSE DELIVERED: 1,633.35mGy.cm Total DLP DATA REPOSITORY: All CT scans at this facility are submitted to the National Radiology Data Registry (NRDR) Dose Index Registry (DIR) with the [employer] (ACR). RADIATION OPTIMIZATION: All CT scans at this facility use at least one of these dose optimization te chniques: automated exposure control; mA and/or kV adjustment per patient size (includes targeted exa ms where dose is matched to clinical indication); or iterative reconstruction.
[2020-11-08 15:39] LABS: Bilirubin Negative (Negative); Blood Negative (Negative); Clarity Clear (Clear); Glucose Negative (Negative); Ketones Negative (Negative); Leukocyte Esterase Trace (Negative); Nitrite Negative (Negative); Specific Gravity 1.015 (1.005-1.025); Urobilinogen 0.2 EU/dL (Up TO 0.2)
[2020-11-08 15:46] LABS: Epithelial Cells Few HPF (Negative); RBC 0-2 HPF (0-2)
[2020-11-08 15:47] LABS: Bacteria Many HPF (Negative); C & S Indicated? Yes; Casts Negative LPF (Negative); Crystals Negative HPF (Negative); Mucus Negative (Negative)
--- NOTE | 2020-11-08 16:12 | DI.VRAD_ITS ---
PROCEDURE INFORMATION: Exam: CT Angiography Head With Contrast, Arteriography Exam date and time: 11/08/2020 2:25 PM Age: 50 years old Clinical indication: Speech disturbance; Slurred speech; Prior surgery; Surgery date: 6+ months; Surgery type: Patients mother sts had had brain surgery before to remove tumors. Unknown time frame. TECHNIQUE: Imaging protocol: Computed tomography angiography of the head with contrast. Exam focused on the arteries. 3D rendering (Not supervised by radiologist): MIP and/or 3D reconstructed images were created by the technologist. Radiation optimization: All CT scans at this facility use at least one of these dose optimization techniques: automated exposure control; mA and/or kV adjustment per patient size (includes targeted exams where dose is matched to clinical indication); or iterative reconstruction. Contrast material: OMNIPAQUE 350; Contrast volume: 85 ml; Contrast route: INTRAVENOUS (IV); COMPARISON: CT HEAD WO 09/02/2020 3:39 PM FINDINGS: ANTERIOR CIRCULATION: Right internal carotid artery: Unremarkable. Intracranial segment is patent with no significant stenosis. No aneurysm. Right middle cerebral artery: Unremarkable. No occlusion or significant stenosis. No aneurysm. Right anterior cerebral artery: Unremarkable. No occlusion or significant stenosis. No aneurysm. Left internal carotid artery: Unremarkable. Intracranial segment is patent with no significant stenosis. No aneurysm. Left middle cerebral artery: Unremarkable. No occlusion or significant stenosis. No aneurysm. Left anterior cerebral artery: Unremarkable. No occlusion or significant stenosis. No aneurysm. POSTERIOR CIRCULATION: Right vertebral artery: Unremarkable. No occlusion or significant stenosis. No aneurysm. Left vertebral artery: Unremarkable. No occlusion or significant stenosis. No aneurysm. Basilar artery: Unremarkable. No occlusion or significant stenosis. No aneurysm. Right posterior cerebral artery: Unremarkable. No occlusion or significant stenosis. No aneurysm. Left posterior cerebral artery: Unremarkable. No occlusion or significant stenosis. No aneurysm. Brain: Mild left-sided cerebellar encephalomalacia is unchanged. There is ex vacuo dilatation of the occipital and temporal horns of the left lateral ventricle, unchanged. Cerebral ventricles: See Brain finding. Bones/joints: Left frontal, parietal and suboccipital craniotomy change is again seen. Soft tissues: Mild right periorbital soft tissue swelling noted. IMPRESSION: 1. There is no evidence for acute intracranial vascular abnormality. 2. Nonacute and postsurgical intracranial changes are stable from prior exam. 3. Right periorbital soft tissue swelling. Dictated and Authenticated by: Giulia Walton MD. Ordering:OSCAR Henry MD
[2020-11-08] MEDS: Normal Saline Flush 10 ML SYR IVP (17:07)
[2020-11-08] MEDS: cefTRIAXone 1 GM/50 ML BAG IVPB (17:07)
[2020-11-08 17:13] LABS: Source Nasal/Nares
[2020-11-08 18:04] LABS: COVID-19 PCR Negative (Negative)
--- NOTE | 2020-11-08 18:10 | W.PM.HP.N ---
Date of service: 11/08/20 Time of Service: 18:10 Assessment and Plan Assessment and plan (1) Dysarthria: Status: Acute Assessment and plan: I think the most coherent diagnosis here is concussion secondary to putative fall (as evidenced by head laceration). CVA is theoretically possible but I think unlikely. Progression of underlying disease also possible but generally would not expect sudden change in status. Seizure with post ictal effects possible but again I think less likely, though it is possible a seizure could have been responsible for a fall. I have requested ER review case with patient's team at [facility] [place] [place]. Otherwise I would advise observation overnight, though patient and mother are requesting d/c to home. This I would not advise. I do note the hyponatremia, present sine 09/14. Etiology not determined at present but SIADH, either from meds or central pathology would be most likely. I do not think this is a factor in current presentation, at least not directly. Plan: admit, saline then fluid restriction, neuro checks, track sodium. 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 Brought in today by mother who notes patient's speech more garbled than usual, and perhaps not making total sense. Note that patient was found with bruising/laceration over right eye an it was presumed she may have fallen, though no witness and she dose not recall events. At any rate w/u in ER of note for sodium 125, low grade pyuria (5-10 WBC) and head CT showing no acute changes. Mother reports that patient seems to be improving, speech is more intelligible and closer to baseline, though still not her usual. Patient denies BUSTAMANTE, N/V. Has baseline diplopia and truncal ataxia, otherwise no new lateralizing symptoms. 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 Anupama PARSONS Colonoscopy - MAC (05/24/13) Colonoscopy - MAC (06/19/17) Excision, Lesion (06/07/16) sacral lesion, fibroadipose tissue Excision, Lipoma (04/04/14) ABDOMINAL WALL Tonsillectomy (~1997) Family History Mother Diabetes Heart disease Hyperlipidemia Father Diabetes Essential hypertension Heart disease Hyperlipidemia Sister Diabetes Depression Brother , AGE 32 Stroke Essential hypertension Hyperlipidemia Maternal Grandfather Diabetes Stroke Paternal Grandfather No problems noted. Maternal Grandmother No problems noted. Paternal Grandmother Alzheimer disease Depression Daughter Essential hypertension Depression Social History Smoking/Tobacco Use Status: Former Tobacco Use Tobacco: How many years used: 30 Quit status: has quit before Smoking risk assessment performed?: Yes Alcohol Intake: current Alcohol Intake frequency: a few times a month Alcohol type: beer, wine and hard liquor Drug use: Never Substance use type: does not use Caregiver/Support person: No Household members: none Housing: other Details: [facility] current occupation: disable Sexually active: No Do you think of yourself as: straight/heterosexual Current gender identity: female Duration: 60-90 minutes/day Frequency: 5-6 times per week Opal/Rastafari: No preference Special opal needs: No Seatbelt use: always Additional Social history: Unable to obtain this information upon arrival. Meds Allergies and Home Medications Allergies Allergy/AdvReac Type Severity Reaction Status Date / Time bupropion AdvReac Severe MENTAL Verified 11/08/20 14:33 STATUS CHANGE oxycodone AdvReac Intermediate night harper Verified 11/08/20 14:33 Home Medications Medication Instructions Recorded Confirmed Type lorazepam 0.5 mg tablet 0.5 mg PO DAILY PRN #20 tab 09/27/18 11/08/20 Rx levetiracetam 750 mg tablet 1,500 mg PO BID #120 tab 10/31/19 11/08/20 Rx buspirone 15 mg tablet 15 - 30 mg PO BID #90 tab-cap 06/01/20 11/08/20 Rx phenytoin sodium extended 100 mg 100 mg PO BID #60 cap 07/09/20 11/08/20 Rx capsule duloxetine 60 mg capsule,delayed 60 mg PO BID #180 cap 10/19/20 11/08/20 Rx release Exam Narrative Exam Narrative: 126/85, 73, 36.9, 15, 100% RA. HEENT 1/5 cm lac right supraorbital with upper eyelid chemosis. No tenderness or bruising. Neck supple; lungs clear; heart RRR; abdomen soft and NT; extremities w/o edema; neuro Ox3, significant dyarthria limits eval to a degree but is Ox3, follows commands and generally appears to converse moren or less lucidly; mixed nystagmus, eomi, perrl, no facial asymmetry, tongue midline, moves all 4s equally, bilateral FTN poor Results Labs Result diagrams: 11/08/20 14:45 11/08/20 14:45 Labs: Laboratory Results - last 24 hr 11/08/20 11/08/20 11/08/20 14:45 14:45 15:30 WBC 4.17 L RBC 4.25 Hgb 11.8 Hct 34.2 L MCV 80.5 MCH 27.8 MCHC 34.5 RDW 12.3 Plt Count 230 MPV 8.4 Immature Gran % 0.0 Neutrophils % 66.3 Lymphocytes % 18.9 Monocytes % 13.9 Eosinophils % 0.7 Basophils % 0.2 Nucleated RBC % 0 Absolute Neutrophils 2.76 Absolute Lymphocytes 0.79 L Absolute Monocytes 0.58 Absolute Eosinophils 0.03 Absolute Basophils 0.01 Sodium 125 L Potassium 3.8 Chloride 90 L Carbon Dioxide 30.9 Anion Gap 4.1 BUN 5 L Creatinine 0.6 Estimated GFR/1.73 m2 >= 60.00 Glucose 92 Calcium 8.4 L Total Bilirubin 0.3 AST 25 ALT 18 Alkaline Phosphatase 93 Troponin I < 0.05 Total Protein 6.7 Albumin 3.6 Urine Color Yellow Urine Clarity Clear Urine pH 7.0 Ur Specific [place] 1.015 Urine Protein Negative Urine Ketones Negative Urine Blood Negative Urine Nitrite Negative Urine Bilirubin Negative Urine Urobilinogen 0.2 Ur Leukocyte Esterase Trace H Urine RBC 0-2 Urine WBC 5-10 Ur Epithelial Cells Few Urine Crystals Negative Urine Bacteria Many Urine Casts Negative Urine Mucus Negative Ur Culture Indicated? Yes Urine Glucose Negative COVID-19 Source SARS-CoV-2 (PCR) 11/08/20 17:05 WBC RBC Hgb Hct MCV MCH MCHC RDW Plt Count MPV Immature Gran % Neutrophils % Lymphocytes % Monocytes % Eosinophils % Basophils % Nucleated RBC % Absolute Neutrophils Absolute Lymphocytes Absolute Monocytes Absolute Eosinophils Absolute Basophils Sodium Potassium Chloride Carbon Dioxide Anion Gap BUN Creatinine Estimated GFR/1.73 m2 Glucose Calcium Total Bilirubin AST ALT Alkaline Phosphatase Troponin I Total Protein Albumin Urine Color Urine Clarity Urine pH Ur Specific [place] Urine Protein Urine Ketones Urine Blood Urine Nitrite Urine Bilirubin Urine Urobilinogen Ur Leukocyte Esterase Urine RBC Urine WBC Ur Epithelial Cells Urine Crystals Urine Bacteria Urine Casts Urine Mucus Ur Culture Indicated? Urine Glucose COVID-19 Source Nasal/Nares SARS-CoV-2 (PCR) Negative Last Vital Signs Temp 36.9 C 11/08/20 14:19 Pulse 64 11/08/20 14:49 Resp 15 11/08/20 16:30 BP 126/85 11/08/20 14:49 Pulse Ox 100 11/08/20 15:25
[2020-11-08 19:08] LABS: Troponin I < 0.05 ng/mL (<0.06)
[2020-11-08 19:23] LABS: PHENYTOIN (DILANTIN) 8.4 ug/mL (10.0-20.0)
--- NOTE | 2020-11-08 22:12 | NUR.NOTE ---
Nursing Note: Patient and family member updated on status of admission and this RN was in the process of giving report to receiving nurse, when family member and pt stated wanting to leave against medical advice. At approx. 1930 family member reports We've been here since 3 o'clock waiting and waiting. We want to go home. Provider came in to talk with patient to voice concern about leaving against medical advice. Patient and family member made aware of risks associated with leaving hospital. Provider states working as fast as possible with the process of admission given the amount of patients in the department and the help available. Family member states You get out of here and don't talk to me like that! We're leaving, get out! Patient's family member signed AMA paperwork.
--- NOTE | 2020-11-09 12:55 | NUR.NOTE ---
Nursing Note: Rhonda Staley . mother of Sarah called wanting a RX called in for a Posible urine infection--Culture is pending--per Dr Bahena will call when culture is final--pt did have an IV ABX while in er---had left AMA.---Rhonda verbalizes understanding and is agreeable to plan.
--- NOTE | 2020-11-10 09:23 | NUR.NOTE ---
Urine culture results with no need for antibiotic TX per Dr Munson called to Maria L--current caregiver per Leola Rudolph mother.--Maria L verbalizes understanding and has been comminicating with Tatianna hernandez at [facility].Nursing Note:
== END 2020-11-08 19:42 | disposition left against medical advice (07) ==
PROVIDERS: General Practice; Emergency Provider Emergency Medicine; PCP Family Medicine
DX: R47.1 Dysarthria and anarthria (principal); E87.1 Hypo-osmolality and hyponatremia; R82.71 Bacteriuria; G40.909 Epilepsy, unspecified, not intractable, without status epilepticus; R29.705 NIHSS score 5; Z20.822 Contact with and (suspected) exposure to COVID-19; Z03.818 Encounter for observation for suspected exposure to other biological agents ruled out; Z53.29 Procedure and treatment not carried out because of patient's decision for other reasons
CPT/HCPCS: 36415; 36416; 70496; 80053; 82962; 87635; 93005; 96365; 99283; 99285; 80185; 81003; 81015; 84484; 85025; 87086; 93010; 99222; J0696; J3490

== ENCOUNTER 2021-02-11 01:25 | Outpatient (CLI) | payer MEDICARE, SELFPAY ==
--- NOTE | 2021-02-11 10:00 | DI.MRI_ITS ---
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 Both noninfused and contrast i nfused sequences were performed. IV Contrast injected was 12 cc Dotarem. COMPARISON: MR MRI - BRAIN W/WO CONTRAST from 01/08/2013 MR MRI BRAIN WWO from 12/09/2020 MR MRI BRAIN WWO from 12/09/2020 FINDINGS: CEREBRAL PARENCHYMA: Extensive postsurgical changes are again noted. There is no evidence of intracr anial hemorrhage. No evidence of restricted diffusion on DWI imaging. Small focus of intra-axial enhancement is again noted in the upper cervical spinal cord at the C1 lev el, similar to the prior study and suspicious for possible metastatic deposit. The amount of white matter signal abnormality in the left posterior fossa has diminished on the FLAIR sequence as has the amount of intra-axial edema or gliosis in the left temporal lobe. Ex vacuo mclean ges are stable and there is no new significant shift. There is still some mild intra-axial enhanceme nt within the anterior aspect of the left temporal lobe in the middle cranial fossa, similar to the p revious study. The amount of smooth meningeal enhancement over the anterior left convexity is unchan ged. There are no new ring-enhancing lesions in the brain and no new abnormal meningeal enhancement. PITUITARY GLAND: No mass nor parasellar abnormality. No obvious abnormality in the cavernous sinuses. FLOW VOIDS: The expected flow void are noted. No evidence of obvious aneurysm nor obvious vascular ma lformation. PARANASAL SINUSES: The visualized paranasal sinuses appear unremarkable. ORBITS: No obvious abnormal findings. IMPRESSION: 1. No new acute findings when compared to the prior outside study of 12/09/2020. The previously desc ribed extensive postsurgical changes are again noted and appear stable. The amount of enhancement in the left temporal lobe and surrounding edema or gliosis is relatively stable. 2. Please note that there is a focus of abnormal enhancement in the left side of the uppermost spinal cord at C1 level. This appears unchanged from the prior outside study of 12/09/2020. Given the his tory here this may represent a metastatic deposit. Appropriate follow-up recommended. DATA REPOSITORY:
[2021-02-11 10:11] LABS: CREATININE 0.7 mg/dL (0.55-1.02)
[2021-02-11] MEDS: Normal Saline Flush 10 ML SYR IVP (10:15)
[2021-02-11] MEDS: Gadoterate meglumine 20 ML VIAL 12 ML IVP (10:15)
--- NOTE | 2021-02-11 18:21 | DI.VRAD_ITS ---
PROCEDURE INFORMATION: Exam: MR Head Without and With Contrast Exam date and time: 02/11/2021 10:17 Age: 50 years old Clinical indication: Other: Brain necrosis; Additional info: Hemangiopricytoma of DOPER TECHNIQUE: Imaging protocol: MR of the head without and with intravenous contrast. Contrast material: DOTAREM; Contrast volume: 12 ml; Contrast route: INTRAVENOUS (IV); COMPARISON: MRI BRAIN O 12/09/2020 13:50 FINDINGS: Brain: Hazy postcontrast enhancement is identified in the left temporal lobe anteriorly. This appears intra-axial. The volume has decreased since previous imaging now measuring 8 mm in maximal diameter. Unclear if this could be a small focus of residual or recurrent malignancy. Elevated signal in the white matter at this location is similar and appears mild. This could reflect edema or chronic gliosis. Extensive postsurgical changes in the left posterior fossa appearing similar to previous imaging. Loss of volume in the cerebellum and left brainstem similar to previous imaging. The degree of smooth but mildly thickened dural enhancement along the left greater than right subdural tissues on postcontrast imaging has decreased in contiguity since the previous study overall. This could be a post treatment finding. No restricted diffusion. No acute or subacute infarct. Cerebral ventricles: Ex vacuo dilation of the ventricular system. Bones/joints: Postsurgical changes in the calvarium. Paranasal sinuses: No acute sinusitis. Mastoid air cells: No significant effusion. Orbital cavity: Unremarkable. Soft tissues: No suspicious lesions. IMPRESSION: No acute findings. Extensive postsurgical changes are stable. Hazy postcontrast enhancement in left temporal lobe, slightly diminished. Discussion as above. Dictated and Authenticated by: Diane Esqueda MD. Ordering:PILO Madison MD
== END 2021-02-11 01:45 ==
PROVIDERS: PCP Family Medicine; Visit Provider Internal Medicine
DX: I67.89 Other cerebrovascular disease (principal); D48.1 Neoplasm of uncertain behavior of connective and other soft tissue; Y84.2 Radiological procedure and radiotherapy as the cause of abnormal reaction of the patient, or of later complication, without mention of misadventure at the time of the procedure
CPT/HCPCS: 70553; 82565

== ENCOUNTER 2021-03-12 08:25 | Outpatient (REF) | payer MEDICARE, SELFPAY ==
[2021-03-12 12:05] LABS: Bilirubin Negative (Negative); Blood Negative (Negative); Clarity Clear (Clear); Glucose Negative (Negative); Ketones Negative (Negative); Leukocyte Esterase Small (Negative); Nitrite Negative (Negative); Specific Gravity >= 1.030 (1.005-1.025); Urobilinogen 0.2 EU/dL (Up TO 0.2); pH 5.5 (5-8)
[2021-03-12 12:12] LABS: Bacteria Few HPF (Negative); Epithelial Cells Many HPF (Negative); RBC 0-2 HPF (0-2)
[2021-03-12 12:13] LABS: C & S Indicated? No/Sq. Contamination; Casts Negative LPF (Negative); Crystals Mod Calcium Oxalate HPF (Negative); Mucus Trace (Negative)
== END 2021-03-12 08:26 | disposition home or self-care (01) ==
LOC: LBN 08:25
PROVIDERS: PCP Family Medicine; Visit Provider Family Medicine
DX: R35.0 Frequency of micturition (principal)
CPT/HCPCS: 81003; 81015

== ENCOUNTER 2021-04-02 11:08 | Outpatient (CLI) | payer MEDICARE, SELFPAY ==
[2021-04-03 14:57] LABS: COVID-19 RT-PCR UVMMC Result Negative (Negative)
== END 2021-04-02 11:09 | disposition home or self-care (01) ==
PROVIDERS: PCP Family Medicine; Visit Provider Nurse Practitioner Family
DX: Z20.822 Contact with and (suspected) exposure to COVID-19 (principal)
CPT/HCPCS: U0003; U0005

== ENCOUNTER 2021-06-23 02:11 | Outpatient (CLI) | payer MEDICARE, SELFPAY ==
--- NOTE | 2021-06-23 13:45 | DI.MRI_ITS ---
Exam(s) MR BRAIN WO/W EXAM: MR BRAIN WO/W CLINICAL HISTORY: RADIATION THERAPY-INDUCED BRAIN NECROSIS, I67.89, Y84.2. TECHNIQUE: Multiplanar multisequence MRI was performed. COMPARISON: MR MR BRAIN WO/W from 02/11/2021 FINDINGS: MR examination of brain was performed according to the usual protocol with additional post contrast T 1 weighted axial and coronal imaging and multiplanar T1 MP rage imaging. Previously noted left temporal lobe and left posterior 5th fossa areas of encephalomalacia are again noted. No apparent change from prior study, no new enhancement in these areas. There is a new 5 millimeter may diameter focal enhancement of the sylvian fissure on the right anteri sarai. This is likely to represent a metastatic deposit. No additional new areas of enhancement are seen. No mass effect. Orbital and temporal bone structures appear intact. There is normal flow void in the bgnwyu-yr-Lolzw s vasculature. No evidence of diffusion restriction in the brain to suggest infarction. IMPRESSION: New focus of rounded enhancement in anterior right sylvian fissure, this may represent a parenchymal or leptomeningeal metastasis. A previously noted incompletely visualized area of enhancement at the upper spinal cord seen on prior examination is unchanged. DATA REPOSITORY:
[2021-06-23 13:57] LABS: CREATININE 0.7 mg/dL (0.55-1.02)
[2021-06-23] MEDS: Normal Saline Flush 10 ML SYR IVP (14:05)
[2021-06-23] MEDS: Gadoterate meglumine 20 ML VIAL 14 ML IVP (14:06)
== END 2021-06-23 02:31 ==
PROVIDERS: PCP Family Medicine; Visit Provider Internal Medicine
DX: D48.1 Neoplasm of uncertain behavior of connective and other soft tissue (principal); I67.89 Other cerebrovascular disease; Y84.2 Radiological procedure and radiotherapy as the cause of abnormal reaction of the patient, or of later complication, without mention of misadventure at the time of the procedure; R94.02 Abnormal brain scan
CPT/HCPCS: 70553; 82565

== ENCOUNTER 2021-07-30 22:42 | Outpatient (REF) | payer MEDICARE, SELFPAY ==
[2021-07-31 13:15] LABS: COVID-19 RT-PCR UVMMC Result Negative (Negative)
== END 2021-07-30 22:43 | disposition home or self-care (01) ==
LOC: NCHCN 22:42
PROVIDERS: PCP Family Medicine; Visit Provider Nurse Practitioner Family
DX: Z20.822 Contact with and (suspected) exposure to COVID-19 (principal)
CPT/HCPCS: U0003; U0005

== ENCOUNTER 2021-08-03 15:27 | Outpatient (REF) | payer MEDICARE, MEDICAID, SELFPAY ==
[2021-08-04 01:50] LABS: COVID-19 RT-PCR UVMMC Result Positive (Negative)
== END 2021-08-03 15:28 | disposition home or self-care (01) ==
LOC: NCHCN 15:27
PROVIDERS: PCP Family Medicine; Visit Provider Nurse Practitioner Family
DX: Z20.822 Contact with and (suspected) exposure to COVID-19 (principal)
CPT/HCPCS: U0003; U0005

== ENCOUNTER 2021-08-05 11:41 | Outpatient (CLI) | payer MEDICARE, MEDICAID, SELFPAY ==
[2021-08-05 13:05] VITALS: BP 152/102; PULSE 71; RESP 16; TEMP 36.6; O2SAT 99
[2021-08-05 13:35] VITALS: BP 132/96; PULSE 70; RESP 16; O2SAT 98
[2021-08-05 14:05] VITALS: BP 131/93; PULSE 69; RESP 16; TEMP 37.1; O2SAT 98
== END 2021-08-05 11:42 | disposition home or self-care (01) ==
LOC: INF 11:43
PROVIDERS: PCP Family Medicine; Visit Provider Family Medicine
DX: U07.1 COVID-19 (principal)
CPT/HCPCS: 96374; Q0222

== ENCOUNTER 2021-08-10 19:13 | Inpatient (IN) | payer MEDICARE, SELFPAY ==
[2021-08-10 19:15] VITALS: BP 121/83; PULSE 69; RESP 17; TEMP 36.8; O2SAT 94
[2021-08-10 19:18] VITALS: RESP 18
--- NOTE | 2021-08-10 20:00 | DI.RAD_ITS ---
Exam(s) XR PORTABLE CHEST AP EXAM: XR PORTABLE CHEST AP CLINICAL HISTORY: covid. TECHNIQUE: 2D digital imaging was performed. COMPARISON: CR,XR XR PORTABLE CHEST AP from 05/11/2019 FINDINGS: Single AP portable view. Heart size is upper normal. The mediastinum is not widened. Lungs are clear. No infiltrates nor obvious pleural effusions. IMPRESSION: No acute pulmonary findings on this single AP portable view of the chest. DATA REPOSITORY: RADIATION DOSE DELIVERED: All CT scans at this facility use at least one of these dose optimization techniques: automated exposure control; mA and/or kV adjustment per patient size (includes targeted e xams where dose is matched to clinical indication); or iterative reconstruction.
--- NOTE | 2021-08-10 20:00 | DI.CT_ITS ---
Exam(s) CT HEAD WO EXAM: CT HEAD WO CLINICAL HISTORY: hx of brain tumors, increased falls. TECHNIQUE: Imaging Protocol: Axial computed tomography images with coronal and sagittal reformatted images were created and reviewed COMPARISON: CT CT BRAIN CTA from 11/08/2020 MR MR BRAIN WO/W from 06/23/2021 FINDINGS: Again noted is left retromastoid craniectomy defect as well as a left fronto temporal craniotomy, un changed. There is no mucosal thickening and fluid in both maxillary sinuses as well as in the frontal sinuses and mild involvement of the sphenoid sinuses. Ethmoidal air cells are also opacified. Mastoid air c ells are clear. There is no evidence of intracranial hemorrhage, intra or extra-axial. There is a zone of encephalomalacia in the left temporal occipital region and also similar finding ev ident in the superior aspect of the left cerebellar hemisphere, unchanged from previous. Also volume loss again noted in the inferior aspect the left cerebellar hemisphere. Increasing volume loss in t he right cerebellar hemisphere although this appears to be related to increased CSF extra-axial space at this level. No evidence of intra-axial nor extra-axial neoplasm at this level. No hemorrhage. There is an area of lacunar infarct in the posterior limb of the left internal capsule adjacent to th e atrium left lateral ventricle. This appears unchanged. IMPRESSION: There are postsurgical changes again noted in the left temporal occipital and posterior fossa region again noted. However, there is also increasing CSF extra-axial space pole lateral to the right cereb ellar hemisphere and with what appears to be some compression of the folia of the right cerebellar he misphere (but no shift of midline structures). This is more evident than on the prior CT scan of Oct but appears similar to the more recent MRI of 06/23/2021. There has been interval development of pansinusitis when compared to the prior study listed above. RADIATION DOSE DELIVERED: 814.72mGy.cm Total DLP DATA REPOSITORY: All CT scans at this facility are submitted to the National Radiology Data Registry (NRDR) Dose Index Registry (DIR) with the [employer] [place] [employer] ([employer]). RADIATION OPTIMIZATION: All CT scans at this facility use at least one of these dose optimization te chniques: automated exposure control; mA and/or kV adjustment per patient size (includes targeted exa ms where dose is matched to clinical indication); or iterative reconstruction.
--- NOTE | 2021-08-10 20:14 | ED.GENADUL_ITS ---
Discharge Plan Disposition Patient Disposition: [facility] INPATIENT Condition: Stable Discharge Details Chief Complaint: GenMedical Clinical Impression: Falls, Debility Primary Care Provider: Eduardo Willis ED Provider: Jalen Wood [place] Meds and New Rx's Prescriptions: No Action buspirone 15 mg tablet 15 - 30 mg PO BID Qty: 90 11RF Rx Instructions: 30 mg in AM; 15 mg In PM risperidone 2 mg tablet 2 mg PO DAILY oxybutynin chloride [Ditropan XL] 10 mg tablet extended release 24hr 10 mg PO DAILY clonazepam 0.25 mg tablet,disintegrating 0.25 mg PO DAILY Label Comments: in the morning levetiracetam 750 mg tablet 1,500 mg PO BID Qty: 120 5RF Rx Instructions: per [facility] [place] phenytoin sodium extended 100 mg capsule 100 mg PO BID Qty: 60 11RF duloxetine 60 mg capsule,delayed release(DR/EC) 60 mg PO BID Qty: 180 3RF loratadine 10 mg tablet 10 mg PO DAILY Qty: 90 3RF fluticasone propionate 50 mcg/actuation spray,suspension 2 spray intranasal DAILY Qty: 9.9 5RF Rx Instructions: administer into each nostril Refresh Lacri-Lube 56.8-42.5 % ointment 1 applic ophthalmic (eye) 4-6XD PRN (Reason: dry eyes) Qty: 7 2RF hydrocortisone [Anti-Itch (HC)] 1 % cream 1 applic topical BID-QID PRN (Reason: skin irritation) Qty: 28.35 1RF Rx Instructions: to perioral rash calcium carbonate-vitamin D3 500 mg-5 mcg (200 unit) tablet 1 tab PO DAILY Qty: 90 3RF Ocusoft Lid Scrub Original Foam 1 applic topical DAILY Qty: 50 5RF bebtelovimab 175 mg/2 mL (87.5 mg/mL) solution 175 mg IV ONCE Qty: 2 0RF Rx Instructions: as a single dose Medical Decision Making 51-year-old female history of brain tumor status postresection and radiation complicated by intraoperative stroke, chronic ataxia and left-sided weakness, worsening falls and mental status over the past week at assisted living facility, COVID-positive, nontoxic no acute distress hemodynamically stable afebrile no hypoxia, no external signs of trauma, however given multiple falls decreased functional status must consider recurrence of brain tumor versus hydrocephalus versus less likely acute stroke versus metabolic derangement versus infectious process such as delirium in the setting of COVID infection versus pneumonia versus must consider posttraumatic injury such as intracranial hemorrhage. Screening labs imaging, patient will likely need admission for placement in [facility] facility. 22: 15 resting comfortably no acute distress. No change in head CT. X-ray unremarkable. Labs unremarkable awaiting urinalysis. Patient will need admission for placement given multiple falls deterioration of functional status per family. HPI General Date/Time Provider Initiated Documentation: 08/10/21 19:44 . 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 Hewitt of neuro oncology at [facility]. Family believes that patient will need [facility] facility placement/rehab placement as she is not functioning well at independent living facility Related Data Home Medications Medication Instructions Recorded Confirmed levetiracetam 750 mg tablet 1,500 mg PO BID #120 tabs 10/31/19 08/10/21 phenytoin sodium extended 100 mg 100 mg PO BID #60 caps 07/09/20 08/10/21 capsule duloxetine 60 mg capsule,delayed 60 mg PO BID #180 caps 10/19/20 07/29/21 release clonazepam 0.25 mg disintegrating 0.25 mg PO DAILY 02/23/21 07/29/21 tablet oxybutynin chloride 10 mg 10 mg PO DAILY 02/23/21 08/10/21 tablet,extended release 24 hr (Ditropan XL) risperidone 2 mg tablet 2 mg PO DAILY 02/23/21 08/10/21 fluticasone propionate 50 2 spray intranasal DAILY #9.9 grams 03/08/21 08/10/21 mcg/actuation nasal spray,suspension loratadine 10 mg tablet 10 mg PO DAILY #90 tabs 03/08/21 08/10/21 white petrolatum-mineral oil 56.8 1 applic ophthalmic (eye) 4-6XD 03/09/21 08/10/21 %-42.5 % eye ointment (Refresh PRN dry eyes #7 grams Lacri-Lube) hydrocortisone 1 % topical cream 1 applic topical BID-QID PRN skin 04/12/21 08/10/21 (Anti-Itch (hydrocortisone)) irritation #28.35 grams calcium carbonate 500 mg-vitamin 1 tab PO DAILY #90 tabs 04/15/21 07/29/21 D3 5 mcg (200 unit) tablet buspirone 15 mg tablet 15 - 30 mg PO BID #90 tab-caps 04/20/21 07/29/21 eyelid cleanser combination 7 1 applic topical DAILY #50 mL 06/16/21 07/29/21 (Ocusoft Lid Scrub Original topical foam) bebtelovimab 175 mg/2 mL (87.5 175 mg (2 mL) IV ONCE #2 mL 08/05/21 mg/mL) intravenous solution (EUA) Previous Rx's Medication Instructions Recorded levetiracetam 750 mg tablet 1,500 mg PO BID #120 tabs 10/31/19 phenytoin sodium extended 100 mg 100 mg PO BID #60 caps 07/09/20 capsule duloxetine 60 mg capsule,delayed 60 mg PO BID #180 caps 10/19/20 release fluticasone propionate 50 2 spray intranasal DAILY #9.9 grams 03/08/21 mcg/actuation nasal spray,suspension loratadine 10 mg tablet 10 mg PO DAILY #90 tabs 03/08/21 white petrolatum-mineral oil 56.8 1 applic ophthalmic (eye) 4-6XD 03/09/21 %-42.5 % eye ointment (Refresh PRN dry eyes #7 grams Lacri-Lube) hydrocortisone 1 % topical cream 1 applic topical BID-QID PRN skin 04/12/21 (Anti-Itch (hydrocortisone)) irritation #28.35 grams calcium carbonate 500 mg-vitamin 1 tab PO DAILY #90 tabs 04/15/21 D3 5 mcg (200 unit) tablet buspirone 15 mg tablet 15 - 30 mg PO BID #90 tab-caps 04/20/21 eyelid cleanser combination 7 1 applic topical DAILY #50 mL 06/16/21 (Ocusoft Lid Scrub Original topical foam) bebtelovimab 175 mg/2 mL (87.5 175 mg (2 mL) IV ONCE #2 mL 08/05/21 mg/mL) intravenous solution (EUA) Allergies Allergy/AdvReac Type Severity Reaction Status Date / Time oxycodone Allergy Severe Verified 06/09/21 13:43 General Stated Complaint: GenMedical NETO: 3 Review of Systems Narrative: History of physical limited by patient's mental status, collateral information provided over the phone from family member. 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 RESECTED 12/10/12 and 12/14/12 perioperative infarct. 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 Anupama PARSONS Colonoscopy - MAC (05/24/13) Colonoscopy - MAC (06/19/17) Excision, Lesion (06/07/16) sacral lesion, fibroadipose tissue Excision, Lipoma (04/04/14) ABDOMINAL WALL Tonsillectomy (~1997) Family History Mother Diabetes Heart disease Hyperlipidemia Father Diabetes Essential hypertension Heart disease Hyperlipidemia Sister Diabetes Depression Brother , AGE 32 Stroke Essential hypertension Hyperlipidemia Maternal Grandfather Diabetes Stroke Paternal Grandfather No problems noted. Maternal Grandmother No problems noted. Paternal Grandmother Alzheimer disease Depression Daughter Essential hypertension Depression Social History Smoking/Tobacco Use Status: Former Tobacco Use Tobacco: How many years used: 30 Quit status: has quit before Smoking risk assessment performed?: Yes Alcohol Intake: current Alcohol Intake frequency: a few times a month Alcohol type: beer, wine and hard liquor Drug use: Never Substance use type: does not use Caregiver/Support person: No Household members: none Housing: other Details: [employer] current occupation: disable Sexually active: No Do you think of yourself as: straight/heterosexual Current gender identity: female Duration: 60-90 minutes/day Frequency: 5-6 times per week Opal/Episcopal: No preference Special opal needs: No Seatbelt use: always Do you feel safe at home: Yes (unk) Do you feel safe in your relationship?: Yes Exam Narrative Exam Narrative: Physical Examination General: Awake, no acute distress HEENT: normocephalic, atraumatic; tolerating secretions Neck: supple, trachea midline; full ROM Chest: normal to inspection Respiratory: normal respiratory effort, speaking in full sentences, clear to auscultation, no wheezing, rales or rhonchi Cardiac: regular rate, regular rhythm, S1S2 intact, no murmurs rubs or gallops GI: abdomen soft, non-tender, non-distended; no palpable mass or hepatosplenomegaly Skin: no lesions, rashes or trauma appreciated Neuro: Sitting upright, moving all extremities Psych: Appropriate mood and affect Course Vital Signs Vital signs: Vital Signs Temperature 36.8 C 08/10/21 19:15 Pulse 69 08/10/21 19:15 Respiratory Rate 17 08/10/21 19:15 Blood Pressure 121/83 08/10/21 19:15 Pulse Oximetry 94 08/10/21 19:15 Temperature 36.8 C 08/10/21 19:15 Temperature Source Tympanic 08/10/21 19:15 Pulse 69 08/10/21 19:15 Respiratory Rate 18 08/10/21 19:18 Respiratory Effort 08/10/21 19:18 Respiratory Depth Normal 08/10/21 19:18 Respiratory Pattern Normal 08/10/21 19:18 Blood Pressure 121/83 08/10/21 19:15 Blood Pressure Position Supine 08/10/21 19:15 Pulse Oximetry 94 08/10/21 19:15 Oxygen Delivery Method Room Air 08/10/21 19:15 Oxygen Flow Rate 0 08/10/21 19:15 Pain Level 0 08/10/21 19:15
[2021-08-10 20:33] LABS: Abs Immature Grans 0.01 10^3/uL (0.0-0.06); Absolute Basophil Count 0.01 10^3/uL (0.0-0.2); Absolute Eosinophil Count 0.24 10^3/uL (0.0-0.7); Absolute Lymphocyte Count 1.29 10^3/uL (1.2-3.4); Absolute Monocyte Count 0.39 10^3/uL (0.1-0.8); Absolute Neutrophil Count 2.28 10^3/uL (1.2-6.7); Basophils % 0.2; Eosinophils % 5.7; HCT 37.9 % (36.0-46.0); HGB 12.3 g/dL (11.2-15.7); Immature Grans % 0.2; Lymphocytes % 30.6; MCH 27.9 pg (27.0-33.0); MCHC 32.5 % (32.0-36.0); MCV 86 fL (80-95); MPV 9.1 fL (8.0-11.0); Monocytes % 9.2; Neutrophils % 54.1; Platelet Count 229 10^3/uL (130-400); RBC 4.41 10^6/uL (3.93-5.22); RDW 14.2 % (11.7-14.6); WBC 4.22 10^3/uL (4.4-10.8)
[2021-08-10 20:54] LABS: ALT 42 U/L (14-59); AST 40 U/L (15-37); Albumin 3.3 g/dL (3.4-5.0); Alkaline Phosphatase 100 U/L (46-116); Anion Gap 5.1 mmol/L (3-11); BUN 8 mg/dL (7-18); Bilirubin, Total 0.3 mg/dL (0.2-1.0); CO2 31.9 mmol/L (21.0-32.0); CREATININE 0.7 mg/dL (0.55-1.02); Calcium 8.3 mg/dL (8.5-10.1); Chloride 102 mmol/L (98-107); Glucose 78 mg/dL (74-106); Potassium 3.8 mmol/L (3.5-5.1); Sodium 139 mmol/L (136-145); TSH (W/Ref FT4) 2.62 uIU/mL (0.36-3.74); Total Protein 6.7 g/dL (6.4-8.2)
[2021-08-10 20:58] VITALS: BP 122/84; PULSE 70; RESP 18; TEMP 36.8; O2SAT 95
--- NOTE | 2021-08-10 21:32 | DI.VRAD_ITS ---
PROCEDURE INFORMATION: Exam: CT Head Without Contrast Exam date and time: 08/10/2021 8:52 PM Age: 51 years old Clinical indication: Prior surgery; Surgery date: 6+ months; Surgery type: HX of brain tumor, post resection; Patient HX: HX of brain tumors, increased falls, HX of CVA TECHNIQUE: Imaging protocol: Computed tomography of the head without contrast. Radiation optimization: All CT scans at this facility use at least one of these dose optimization techniques: automated exposure control; mA and/or kV adjustment per patient size (includes targeted exams where dose is matched to clinical indication); or iterative reconstruction. COMPARISON: MR BRAIN WO/W 06/23/2021 1:42 PM FINDINGS: Brain: There is a zone of cystic encephalomalacia/volume loss again seen involving the left temporo-occipital region with cystic encephalomalacia and volume loss also seen along the superior margin of the left cerebellar hemisphere involving the left middle cerebellar peduncle, all similar in appearance. No new intracranial mass or areas of mass effect or detected. No acute intracranial hemorrhage is seen. Cerebral ventricles: Stable in configuration. Paranasal sinuses: Pansinusitis has developed in the interval with mucosal disease and layering fluid now seen throughout the paranasal sinuses. Mastoid air cells: Grossly clear bilaterally. Bones/joints: Left frontotemporal craniotomy and left retromastoid craniectomy defects are again evident. No new bony lesions are detected. Soft tissues: Unremarkable. IMPRESSION: 1. Postsurgical changes are again identified in the left temporo-occipital and posterior fossa regions as above and are stable. No new intracranial mass or evidence of recent hemorrhage on this noncontrast CT examination. 2. Interval development of pansinusitis as above. Dictated and Authenticated by: Calos Issa MD. Ordering:AMBROSIO Rao MD
--- NOTE | 2021-08-10 21:33 | DI.VRAD_ITS ---
PROCEDURE INFORMATION: Exam: XR Chest Exam date and time: 08/10/2021 8:39 PM Age: 51 years old Clinical indication: Patient HX: Covid, cough TECHNIQUE: Imaging protocol: XR of the chest. Views: 1 view. COMPARISON: CR XR PORTABLE CHEST AP 05/11/2019 2:02 PM FINDINGS: Lungs: Lungs are clear throughout with no mass or consolidation detected. Pleural spaces: No pneumothorax or pleural effusion detected. Heart/Mediastinum: Heart size is normal and vessel margins are sharply defined. Bones/joints: No acute osseous lesions are detected. IMPRESSION: No acute findings. Dictated and Authenticated by: Calos Issa MD. Ordering:AMBROSIO Rao MD
--- OUTSIDE RECORDS SUMMARY | 2021-08-10 21:43 | XMS_ITS | Summary of Care ---
:1970 Author Organization [facility] Address [address] [place] [address]- Encounter 05/22/19 - 06/06/19 [facility] [address] [place] [address]- [phone] Encounter Diagnosis Craniotomy for Left Supraclinoid and Paracavernous Mass Resection (Discharge Diagnosis) - 06/04/19 Discharge Disposition: Home with Home Health Care Attending Physician: Morgan Daniels MD Admitting Physician: Morgan Daniels MD Allergies, Adverse Reactions, Alerts Substance Reaction Severity Status oxyCODONE Active Medications acetaminophen 325 mg oral tablet 650 mg = 2 tab, Tab, Oral, q6hr PRN, 0 Refill(s), Other (see comment) Start Date: 06/05/19 Status: OrderedbusPIRone 15 mg oral tablet 15 mg = 1 tab, Tab, Oral, qPM, 30 tab, 0 Refill(s), Print Requisition Start Date: 06/06/19 Status: OrderedbusPIRone 30 mg oral tablet 30 mg = 1 tab, Tab, Oral, Daily, 30 tab, 0 Refill(s), Print Requisition Start Date: 06/06/19 Status: OrderedDULoxetine 60 mg oral delayed release capsule 60 mg = 1 cap, Cap-DR, Oral, q12hr, 60 cap, 0 Refill(s), (do not crush or chew), Print Requisition Start Date: 06/06/19 Status: OrderedKeppra 500 mg oral tablet 500 mg = 1 tab, Tab, Oral, q12hr, 60 tab, 0 Refill(s), Print Requisition Start Date: 06/06/19 Status: Ordered Problem List Condition Effective Dates Status Health Status Informant Cancer of colon(Confirmed) Active Craniotomy(Confirmed) Active Depression(Confirmed) Active Diplopia(Confirmed) Active Esotropia(Confirmed) Active Hemangiopericytoma(Confirmed) Active Seizure(Confirmed) Active Results LABORATORY Most recent to oldest 1 2 3 [Reference Range]: WBC - CRD [3.98-10.04 10.19 x10^3/mcL 11.91 x10^3/mcL x10^3/mcL] *HI* *HI* (05/31/19 6:45 AM) (05/23/19 6:03 AM) WBC Instrument - CRD 10.19 x10^3/mcL 11.91 x10^3/mcL [3.98-10.04 x10^3/mcL] *HI* *HI* (05/31/19 6:45 AM) (05/23/19 6:03 AM) RBC - CRD [3.93-5.22 4.66 x10^6/mcL 4.04 x10^6/mcL x10^6/mcL] (05/31/19 6:45 AM) (05/23/19 6:03 AM) Hemoglobin - CRD [11.2-15.7 12.6 G/DL 11.0 G/DL G/DL] (05/31/19 6:45 AM) *LOW* (05/23/19 6:03 AM) Hematocrit - CRD [34.1-44.9 39.8 % 34.7 % %] (05/31/19 6:45 AM) (05/23/19 6:03 AM) MCV - CRD [82.0-100.8 fL] 85.4 fL 85.9 fL (05/31/19 6:45 AM) (05/23/19 6:03 AM) MCH - CRD [25.6-32.2 pg] 27.0 pg 27.2 pg (05/31/19 6:45 AM) (05/23/19 6:03 AM) MCHC - CRD [31.0-34.6 G/DL] 31.7 G/DL 31.7 G/DL (05/31/19 6:45 AM) (05/23/19 6:03 AM) RDW - CRD [11.7-14.4 %] 14.8 % 14.7 % *HI* *HI* (05/31/19 6:45 AM) (05/23/19 6:03 AM) MPV - CRD [8.97-11.96 fL] 9.60 fL 10.70 fL (05/31/19 6:45 AM) (05/23/19 6:03 AM) Platelets - CRD [139-379 374 x10^3/mcL 208 x10^3/mcL x10^3/mcL] (05/31/19 6:45 AM) (05/23/19 6:03 AM) Imm Granulocyte - CRD 0.5 % 0.4 % (05/31/19 6:45 AM) (05/23/19 6:03 AM) Abs Imm Granulocyte - CRD 0.05 x10^3/mcL 0.05 x10^3/mcL [<=0.05 x10^3/mcL] (05/31/19 6:45 AM) (05/23/19 6:03 AM) Abs Lymphocyte - CRD 3.90 x10^3/mcL 2.62 x10^3/mcL [1.18-3.74 x10^3/mcL] *HI* (05/23/19 6:03 AM) (05/31/19 6:45 AM) Abs Monocyte - CRD [0.20-0.76 1.00 x10^3/mcL 1.12 x10^3/mcL x10^3/mcL] *HI* *HI* (05/31/19 6:45 AM) (05/23/19 6:03 AM) Abs Eosinophil - CRD 0.07 x10^3/mcL <0.03 x10^3/mcL [0.04-0.36 x10^3/mcL] (05/31/19 6:45 AM) *LOW* (05/23/19 6:03 AM) Abs Basophil - CRD [<=0.08 0.03 x10^3/mcL <0.03 x10^3/mcL x10^3/mcL] (05/31/19 6:45 AM) (05/23/19 6:03 AM) Abs Neut - CRD [1.56-6.13 5.14 x10^3/mcL 8.10 x10^3/mcL x10^3/mcL] (05/31/19 6:45 AM) *HI* (05/23/19 6:03 AM) NRBC - CRD 0.0 0.0 (05/31/19 6:45 AM) (05/23/19 6:03 AM) Absolute NRBC - CRD [<=0.01 0.00 x10^3/mcL 0.00 x10^3/mcL x10^3/mcL] (05/31/19 6:45 AM) (05/23/19 6:03 AM) Auto Neutrophil - CRD 50.4 % 68.0 % (05/31/19 6:45 AM) (05/23/19 6:03 AM) Auto Lymphocyte - CRD 38.3 % 22.0 % (05/31/19 6:45 AM) (05/23/19 6:03 AM) Auto Monocyte - CRD 9.8 % 9.4 % (05/31/19 6:45 AM) (05/23/19 6:03 AM) Auto Eos - CRD 0.7 % 0.0 % (05/31/19 6:45 AM) (05/23/19 6:03 AM) Auto Basophil - CRD 0.3 % 0.2 % (05/31/19 6:45 AM) (05/23/19 6:03 AM) RDW-SD - CRD 45.7 46.5 (05/31/19 6:45 AM) (05/23/19 6:03 AM) Estimated Creatinine 74.34 mL/min 71.96 mL/min 84.12 mL/mi n Clearance (06/05/19 5:25 AM) (05/31/19 8:27 AM) (05/29/19 6:23 AM) Creatinine Level 0.83 mg/dL 0.71 mg/dL (05/31/19 6:45 AM) (05/23/19 6:03 AM) Sodium - CRD [136-145 mmol/L] 142 mmol/L 143 mmol/L (05/31/19 6:45 AM) (05/23/19 6:03 AM) Potassium - CRD [3.5-5.1 4.5 mmol/L 4.1 mmol/L mmol/L] (05/31/19 6:45 AM) (05/23/19 6:03 AM) Chloride - CRD [100-109 106 mmol/L 108 mmol/L mmol/L] (05/31/19 6:45 AM) (05/23/19 6:03 AM) Carbon Dioxide - CRD [21-32 33 mmol/L 30 mmol/L mmol/L] *HI* (05/23/19 6:03 AM) (05/31/19 6:45 AM) Anion Gap - CRD [3.0-11.0] 3.0 5.0 (05/31/19 6:45 AM) (05/23/19 6:03 AM) Glucose - CRD [70-99 mg/dL] 74 mg/dL 1 84 mg/dL 2 (05/31/19 6:45 AM) (05/23/19 6:03 AM) BUN - CRD [7-22 mg/dL] 15 mg/dL 15 mg/dL (05/31/19 6:45 AM) (05/23/19 6:03 AM) Creatinine, Enzymatic - CRD 0.83 mg/dL 0.71 mg/dL [0.51-0.95 mg/dL] (05/31/19 6:45 AM) (05/23/19 6:03 AM) eGFR Enz Non-AA - CRD [>=60] >60 3 >60 4 (05/31/19 6:45 AM) (05/23/19 6:03 AM) eGFR Enz AA - CRD [>=60] >60 5 >60 6 (05/31/19 6:45 AM) (05/23/19 6:03 AM) BUN/Creat Ratio - CRD 18.1 21.1 (05/31/19 6:45 AM) (05/23/19 6:03 AM) Calcium - CRD [8.5-10.1 9.0 mg/dL 8.6 mg/dL mg/dL] (05/31/19 6:45 AM) (05/23/19 6:03 AM) Total Protein - CRD [6.4-8.2 6.3 G/DL 6.0 G/DL G/DL] *LOW* *LOW* (05/31/19 6:45 AM) (05/23/19 6:03 AM) Alkaline Phosphatase - CRD 57 unit/L 51 unit/L [45-117 unit/L] (05/31/19 6:45 AM) (05/23/19 6:03 AM) ALT - CRD [12-78 unit/L] 18 unit/L 17 unit/L (05/31/19 6:45 AM) (05/23/19 6:03 AM) AST - CRD [0-37 unit/L] 9 unit/L 13 unit/L (05/31/19 6:45 AM) (05/23/19 6:03 AM) Bilirubin, Total - CRD 0.4 mg/dL 0.3 mg/dL [0.2-1.0 mg/dL] (05/31/19 6:45 AM) (05/23/19 6:03 AM) Albumin - CRD [3.4-5.0 G/DL] 3.5 G/DL 3.2 G/DL (05/31/19 6:45 AM) *LOW* (05/23/19 6:03 AM) Globulin - CRD 2.8 G/DL 2.8 G/DL (05/31/19 6:45 AM) (05/23/19 6:03 AM) Albumin/Globulin Ratio - CRD 1.2 1.1 (05/31/19 6:45 AM) (05/23/19 6:03 AM) 1Result Comment: Impairment: Fasting glucose 100-125 mg/dL Diabetes Mellitus: Fasting glucose >=126 mg/dL Random glucose >=200 mg/[id number] Comment: Impairment: Fasting glucose 100-125 mg/dL Diabetes Mellitus: Fasting glucose >=126 mg/dL Random glucose >=200 mg/[id number] Comment: Reference range: >60 mL/min/1.73m2 Any value below 60 is considered abnormal and is a strong indicator of a stage of Chronic Kidney Disease. Calculation assumes steady state. Calculated result is dependent upon accurate patient demographics. Calculation has not been validated in women and the elderly. Interpret results for inpatients and patients >65 yrs with caution.4Result Comment: Reference range: >60 mL/min/1.73m2 Any value below 60 is considered abnormal and is a strong indicator of a stage of Chronic Kidney Disease. Calculation assumes steady state. Calculated result is dependent upon accurate patient demographics. Calculation has not been validated in women and the elderly. Interpret results for inpatients and patients >65 yrs with caution.5Result Comment: Reference range: >60 mL/min/1.73m2 Any value below 60 is considered abnormal and is a strong indicator of a stage of Chronic Kidney Disease. Calculation assumes steady state. Calculated result is dependent upon accurate patient demographics. Calculation has not been validated in women and the elderly. Interpret results for inpatients and patients >65 yrs with caution.6Result Comment: Reference range: >60 mL/min/1.73m2 Any value below 60 is considered abnormal and is a strong indicator of a stage of Chronic Kidney Disease. Calculation assumes steady state. Calculated result is dependent upon accurate patient demographics. Calculation has not been validated in women and the elderly. Interpret results for inpatients and patients >65 yrs with caution. Vital Signs Most recent to oldest 1 2 3 [Reference Range]: Temperature Oral F 97.0 DegF 98.0 DegF 98.1 DegF [96.4-99.1 DegF] (06/06/19 7:00 AM) (06/05/19 8:00 AM) (06/04/19 8: 49 AM) Temperature Temporal 97.8 DegF (05/22/19 7:29 PM) Peripheral Pulse Rate 67 bpm 76 bpm 79 bpm [60-100 bpm] (06/06/19 7:00 AM) (06/05/19 8:00 AM) (06/04/19 8:4 9 AM) Respiratory Rate [14-20 18 br/min 18 br/min 18 br/mi n br/min] (06/06/19 7:00 AM) (06/05/19 8:00 AM) (06/04/19 8:4 9 AM) Blood Pressure [90-140/60-90 122/86 mmHg 119/84 mmHg mmHg] (06/06/19 7:00 AM) (06/05/19 8:00 AM) Systolic Blood Pressure 137 mmHg [90-140 mmHg] (06/04/19 8:49 AM) Diastolic Blood Pressure 93 mmHg [60-90 mmHg] *HI* (06/04/19 8:49 AM) Mean Arterial Pressure, Cuff 97 mmHg 100 mmHg (06/03/19 8:00 AM) (06/02/19 3:00 PM) Extremity used to obtain Left Arm Left Arm Left Ar m blood pressure (06/04/19 8:49 AM) (06/03/19 7:40 PM) (06/02/19 7:54 PM) Cuff Size. Medium Medium Medium (06/04/19 8:49 AM) (06/03/19 7:40 PM) (06/02/19 7:54 PM) Diastolic Blood Pressure 89 mmHg 96 mmHg with Activity [60-90 mmHg] (05/25/19 2:30 PM) *HI* (05/24/19 9:30 AM) Systolic Blood Pressure with 134 mmHg 141 mmHg Activity [90-140 mmHg] (05/25/19 2:30 PM) *HI* (05/24/19 9:30 AM) Vital Signs Additional after 30 foot walk Information (05/24/19 9:30 AM) Vital Signs w/ Activity after walking trial Additional Info (05/25/19 2:30 PM) Systolic Blood Pressure Post 126 (05/25/19 2:30 PM) Diastolic Blood Pressure 81 Post (05/25/19 2:30 PM) Vital Signs Additional after walking trial Information Post (05/25/19 2:30 PM) Temperature Oral [35.8-37.3 36.1 DegC 36.7 DegC 36.7 DegC DegC] (06/06/19 7:00 AM) (06/05/19 8:00 AM) (06/04/19 8:4 9 AM)
--- NOTE | 2021-08-10 22:36 | W.PM.HP.N ---
Date of service: 08/10/21 Time of Service: 21:36 Assessment and Plan Assessment and plan (1) Debility: Status: Acute Assessment and plan: Has chronic debility d/t previous brain cancer with resection and intraoperative CVA. Recently declining. This could be COVID related, at least in part. Pt has significant language deficits that make indepth inquiry impossible. PT/OT to evaluate. (2) COVID-19: Status: Acute Assessment and plan: Precautions. She received bebtelovimab as outpt after Dx of Covid on 07/29/21. Not hypoxic. (3) Brain tumor: Status: Acute Assessment and plan: H/O hemangiopericytoma. S/p radiation and resection. No acute changes noted on CT. Neuro-oncologist at [facility], Dr Hewitt discussed case with ED physician. To determine if there is tumor spread, should this become something to explore, he suggests a lumbar puncture. (4) Status post CVA: Status: Acute Assessment and plan: Occured intra-operatively. Cerebellar location. 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 PT consulted. Recent falls. Again, may have some relationship to Covid infection. (6) Seizure: Status: Acute Assessment and plan: Cont levetiracetam and phenytoin. No report of recent seizure activity. (7) Discharge planning issues: Status: Acute Assessment and plan: Palliative consulted. DPOA is [facility]. Number is in chart. Potential SNF candidate. Care management will be following. History of Present Illness History of Present Illness Chief Complaint: Weakness, ataxia, falls. 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 She presented to the ED from her assisted living facility where she has mainly been independent with her care. She has had recent falls, appearance of a change in mental status, worsened ataxia and generalized weakness. She tested positive for Covid on 08/03/21. No hypoxia/respiratory sxs. No abd pain, N/V. Vital Signs Temperature ?36.8 C ?08/10/21 19:15 Pulse ?69 ?08/10/21 19:15 Respiratory Rate ?17 ?08/10/21 19:15 Blood Pressure ?121/83 ?08/10/21 19:15 Pulse Oximetry ?94 ?08/10/21 19:15 Labs in ED unremarkable. CT head showed no changes from previous scans. Urine neg. D/T her decline, she is not safe to return to her current living situation. Her family is unable to care for her in their home. Admitted for further evaluation including PT/OT. Palliative also consulted. Review of Systems Unobtainable due to mental status and Unobtainable due to (Information obtained by ED physician via family. 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 RESECTED 12/10/12 and 12/14/12 perioperative infarct. 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 Anupama PARSONS Colonoscopy - MAC (05/24/13) Colonoscopy - MAC (06/19/17) Excision, Lesion (06/07/16) sacral lesion, fibroadipose tissue Excision, Lipoma (04/04/14) ABDOMINAL WALL Tonsillectomy (~1997) Family History Mother Diabetes Heart disease Hyperlipidemia Father Diabetes Essential hypertension Heart disease Hyperlipidemia Sister Diabetes Depression Brother , AGE 32 Stroke Essential hypertension Hyperlipidemia Maternal Grandfather Diabetes Stroke Paternal Grandfather No problems noted. Maternal Grandmother No problems noted. Paternal Grandmother Alzheimer disease Depression Daughter Essential hypertension Depression Social History Smoking/Tobacco Use Status: Former Tobacco Use Tobacco: How many years used: 30 Quit status: has quit before Smoking risk assessment performed?: Yes Alcohol Intake: current Alcohol Intake frequency: a few times a month Alcohol type: beer, wine and hard liquor Drug use: Never Substance use type: does not use Caregiver/Support person: No Household members: none Housing: other Details: [facility] current occupation: disable Sexually active: No Do you think of yourself as: straight/heterosexual Current gender identity: female Duration: 60-90 minutes/day Frequency: 5-6 times per week Opal/Gnosticist: No preference Special opal needs: No Seatbelt use: always Do you feel safe at home: Yes (unk) Do you feel safe in your relationship?: Yes Meds Allergies and Home Medications Allergies Allergy/AdvReac Type Severity Reaction Status Date / Time oxycodone Allergy Severe Verified 06/09/21 13:43 Home Medications Medication Instructions Recorded Confirmed Type levetiracetam 750 mg tablet 1,500 mg PO BID #120 tabs 10/31/19 08/10/21 Rx phenytoin sodium extended 100 mg 100 mg PO BID #60 caps 07/09/20 08/10/21 Rx capsule duloxetine 60 mg capsule,delayed 60 mg PO BID #180 caps 10/19/20 07/29/21 Rx release clonazepam 0.25 mg disintegrating 0.25 mg PO DAILY 02/23/21 07/29/21 History tablet oxybutynin chloride 10 mg 10 mg PO DAILY 02/23/21 08/10/21 History tablet,extended release 24 hr (Ditropan XL) risperidone 2 mg tablet 2 mg PO DAILY 02/23/21 08/10/21 History fluticasone propionate 50 2 spray intranasal DAILY #9.9 grams 03/08/21 08/10/21 Rx mcg/actuation nasal spray,suspension loratadine 10 mg tablet 10 mg PO DAILY #90 tabs 03/08/21 08/10/21 Rx white petrolatum-mineral oil 56.8 1 applic ophthalmic (eye) 4-6XD 03/09/21 08/10/21 Rx %-42.5 % eye ointment (Refresh PRN dry eyes #7 grams Lacri-Lube) hydrocortisone 1 % topical cream 1 applic topical BID-QID PRN skin 04/12/21 08/10/21 Rx (Anti-Itch (hydrocortisone)) irritation #28.35 grams calcium carbonate 500 mg-vitamin 1 tab PO DAILY #90 tabs 04/15/21 07/29/21 Rx D3 5 mcg (200 unit) tablet buspirone 15 mg tablet 15 - 30 mg PO BID #90 tab-caps 04/20/21 07/29/21 Rx eyelid cleanser combination 7 1 applic topical DAILY #50 mL 06/16/21 07/29/21 Rx (Ocusoft Lid Scrub Original topical foam) bebtelovimab 175 mg/2 mL (87.5 175 mg (2 mL) IV ONCE #2 mL 08/05/21 Rx mg/mL) intravenous solution (EUA) Exam Narrative Exam Narrative: Physical Examination General: Sleeping quietly. Wakens to verbal stimuli. Speech is dysarthric and soft. HEENT: normocephalic, atraumatic. Neck: supple, No JVD, full ROM Respiratory: normal respiratory effort, speaking in full sentences, clear to auscultation. Cardiac: regular rate, regular rhythm, S1S2 intact, no murmurs GI: abdomen soft, non-tender, non-distended, normoactive bowel sounds Skin: no lesions, rashes or trauma appreciated Neuro: No focal motor deficits. Dysarthric speech. Psych: Appropriate mood and affect Results Labs Result diagrams: 08/10/21 20:25 08/10/21 20:25 Labs: Laboratory Results - last 24 hr 08/10/21 08/10/21 20:25 20:25 WBC 4.22 L RBC 4.41 Hgb 12.3 Hct 37.9 MCV 86 MCH 27.9 MCHC 32.5 RDW 14.2 Plt Count 229 MPV 9.1 Immature Gran % 0.2 Neutrophils % 54.1 Lymphocytes % 30.6 Monocytes % 9.2 Eosinophils % 5.7 Basophils % 0.2 Nucleated RBC % 0.0 Absolute Neutrophils 2.28 Absolute Lymphocytes 1.29 Absolute Monocytes 0.39 Absolute Eosinophils 0.24 Absolute Basophils 0.01 Sodium 139 Potassium 3.8 Chloride 102 Carbon Dioxide 31.9 Anion Gap 5.1 BUN 8 Creatinine 0.7 Estimated GFR/1.73 m2 >= 60.00 Glucose 78 Calcium 8.3 L Total Bilirubin 0.3 AST 40 H ALT 42 Alkaline Phosphatase 100 Total Protein 6.7 Albumin 3.3 L TSH 2.62 Last Vital Signs Temp 36.8 C 08/10/21 20:58 Pulse 70 08/10/21 20:58 Resp 18 08/10/21 20:58 BP 122/84 08/10/21 20:58 Pulse Ox 95 08/10/21 20:58
[2021-08-10 22:47] LABS: Bilirubin Negative (Negative); Blood Negative (Negative); Clarity Clear (Clear); Glucose Negative (Negative); Ketones Trace mg/dL (Negative); Leukocyte Esterase Negative (Negative); Nitrite Negative (Negative); Specific Gravity 1.025 (1.005-1.025); Urobilinogen 0.2 EU/dL (Up TO 0.2)
[2021-08-10 22:57] LABS: *AMPHETAMINES SCREEN URINE Negative (Negative); *BARBITURATES SCREEN URINE Negative (Negative); *BENZODIAZEPINES SCREEN URINE Negative (Negative); Cannabinoids THC Positive (Negative); Cocaine Screen,Urine Negative (Negative); METHADONE URINE SCREEN Negative (Negative); OPIATES URINE SCREEN Negative (Negative)
[2021-08-10 22:59] LABS: Tricyclic Antidepressants Negative (Negative)
[2021-08-10 23:32] VITALS: BP 132/98; PULSE 54; RESP 16; TEMP 36.8; O2SAT 96
[2021-08-11] VITALS (9 sets, daily range): BP systolic 108–142; BP diastolic 71–103; PULSE 59–81; RESP 14–22; TEMP 36.3–36.9; O2SAT 95–98
--- NOTE | 2021-08-11 | DI.MRI_ITS ---
Exam(s) MR BRAIN WO/W EXAM: MR BRAIN WO/W CLINICAL HISTORY: brain tumor TECHNIQUE: Multiplanar multisequence MRI of the brain was performed. Both noninfused and contrast i nfused sequences were performed. IV Contrast injected was 12 cc Dotarem. COMPARISON: MR MR BRAIN WO/W from 02/11/2021 MR MR BRAIN WO/W from 06/23/[address] HEAD WO from 08/10/2021 FINDINGS: CEREBRAL PARENCHYMA: Extensive postsurgical changes are again noted. There is evidence of left retro mastoid craniectomy as well as left frontal temporal craniotomy. The previously described area of signal abnormality in the anterior left temporal lobe and in Alexi m int in the anterior left temporal lobe in the middle cranial fossa is less evident on the present enrique dy. There is no abnormal intra-axial enhancement in the brain at this time. There are no new ring-enh ancing lesions and there is no new abnormal meningeal enhancement evident. Mild periventricular signa l abnormality on FLAIR sequence is unchanged. Ventricular size including the ex vacuo dilatation on t he left side is unchanged. On the present study in the right-side of the posterior fossa the extra-axial CSF space adjacent to t he lateral aspect of the right cerebellar hemisphere is slightly more wide than previous, not related to positioning. CSF extra-axial space with at this level is presently 1 centimeter and previously wa s 0.5 cm. The remainder of the posterior fossa is unchanged from the prior study. There are no new en hancing findings in the posterior fossa, both intra and extra-axial. DWI: There are no areas of restricted diffusion to suggest acute ischemic insult. SWI: No evidence of obvious microhemorrhages. FLOW VOIDS: The expected flow void are noted. No evidence of obvious aneurysm nor obvious vascular ma lformation. PARANASAL SINUSES: Pansinusitis is now evident. Sinuses were clear on the prior study. ORBITS: No obvious abnormal findings. IMPRESSION: 1. Compared to the prior MRI scan of January 2021 there is again noted evidence of left-sided surger y including left fronto temporal craniotomy and left retro mastoid craniectomy. 2. Some improvement in the previously described signal abnormality in the anterior left temporal lobe within the left middle cranial fossa. There is no abnormal intra-axial enhancement in the anterior l eft temporal lobe at this time. Also no new abnormal meningeal enhancement. 3. The amount of ex vacuo findings on the left side are unchanged. 4. there is increasing extra-axial CSF space lateral to the right cerebellar hemisphere in the wet mixer ior fossa, previously 0.5 cm and presently 1 cm width. There does not appear to be an enhancing no ri ng enhancing mass at this level in the extra-axial space although there appears to be slight compress ion of the folia of the ipsilateral right cerebellar hemisphere. The appearance of the left cerebella r hemispheres unchanged, as is the appearance of the resected intra-axial tissue and CSF spaces on th e left side at this level. 5. There is now pansinusitis, including the frontal sinuses, which was not previously present on the study of 02/12/2020. DATA REPOSITORY:
[2021-08-11] MEDS: Enoxaparin 40 MG/0.4 ML SYR SC (03:33)
[2021-08-11 06:16] LABS: Abs Immature Grans 0.01 10^3/uL (0.0-0.06); Absolute Basophil Count 0.01 10^3/uL (0.0-0.2); Absolute Eosinophil Count 0.25 10^3/uL (0.0-0.7); Absolute Lymphocyte Count 1.54 10^3/uL (1.2-3.4); Absolute Monocyte Count 0.44 10^3/uL (0.1-0.8); Absolute Neutrophil Count 2.16 10^3/uL (1.2-6.7); Basophils % 0.2; Eosinophils % 5.7; HCT 38.5 % (36.0-46.0); HGB 12.3 g/dL (11.2-15.7); Immature Grans % 0.2; Lymphocytes % 34.9; MCH 27.5 pg (27.0-33.0); MCHC 31.9 % (32.0-36.0); MCV 86 fL (80-95); Platelet Count 231 10^3/uL (130-400); RBC 4.48 10^6/uL (3.93-5.22); RDW 14.2 % (11.7-14.6); RDW-SD 44.7 fL; WBC 4.41 10^3/uL (4.4-10.8)
[2021-08-11] MEDS: DULoxetine 30 MG CAP 60 MG PO ×2 (09:33→19:48)
[2021-08-11] MEDS: levETIRAcetam 500 MG TAB 1500 MG PO ×2 (09:33→19:48)
[2021-08-11] MEDS: Oxybutynin-CR 5 MG TABCR 10 MG PO (09:33)
[2021-08-11] MEDS: Normal Saline Flush 10 ML SYR IVP ×2 (09:45→23:06)
[2021-08-11] MEDS: Gadoterate meglumine 20 ML VIAL 12 ML IVP (09:46)
--- NOTE | 2021-08-11 10:23 | INITIAL_ITS ---
- If Service Date Differs Date of service: 08/11/21 Time of Service: 10:23 Care Management Initial Assess REASON FOR HOSPITALIZATION:: Acute Debility, COVID-19, Brain tumor. PAST MEDICAL HISTORY/PAST SURGICAL HISTORY:: All Active Problems (Updated 08/10/21 @ 22:49 by Jalen Medina MD). Discharge planning issues (Acute). Falls (Acute). Debility (Acute). COVID-19 (Acute). 08/04/21/pps. Excessive cerumen in ear canal (Acute). Perioral dermatitis (Acute). Physical deconditioning (Acute). Dysarthria (Acute). Hyponatremia (Acute). Bacteria in urine (Acute). Dysarthria (Acute). Brain tumor (Acute). recurrent hemangiopericytoma;. 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 Seizure (Acute). History of colectomy (Acute). History of excision of mass (Acute). Status post tonsillectomy (Acute). Persistent mood disorder (Chronic). Status post CVA (Acute 12/14/12). Hemangiopericytoma (Acute 12/21/12). 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 RESECTED 12/10/12 and 12/14/12 perioperative infarct. RT completed 02/2013. ataxia,dysarthria,diplopia. Carcinoma of colon (Acute 06/03/13). S/P sigmoid colectomy 06/07. GER III with severe dysplasia (Acute 12/15/16). 2002, LEEP. 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 Smoker (Acute). Internal hemorrhoids (Acute 06/19/17). Depressive disorder (Acute). Colon cancer (Acute). Primary, not related to brain tumor. Personal history of brain tumor, malignant (Acute). Removal of tumor 2012. 05/2019 recurrent tumor of brain ([place] radiation)-[facility]. Medical History . 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 Carcinoma of colon. GER III with severe dysplasia. Hemangiopericytoma. Status post CVA. Tobacco dependence. Surgical History . Colectomy (06/18/13). DR. Anupama PARSONS. Colonoscopy - MAC (05/24/13). Colonoscopy - MAC (06/19/17). Excision, Lesion (06/07/16). sacral lesion, fibroadipose tissue. Excision, Lipoma (04/04/14). ABDOMINAL WALL. Tonsillectomy (~1997) PREVIOUS FUNCTIONAL STATUS/SOCIAL/FAMILY SUPPORTS:: Sarah resides at the [facility]. She has chronic debility d/t previous brain cancer with resection and intraoperative CVA. 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 Her sister Maria L Staley and her mother Nevaeh both live nearby and are very supportive of her needs. Maria L Staley is Sarah's HCA and her Healthcare Power of Director Internal Control. CURRENT FUNCTIONAL STATUS:: Sarah is covid positive and on isolation precautions. CM spoke with patient's sister Maria L, who notes a significant decline in Sarah's health and quality of life over the last few years, but moreso over the last few months. Maria L shares that in her opinion Niyahs healthcare needs are becoming too complex for [facility]. Noting that [facility] feels that her cancer may now be in her spinal cord and at one point they were concidering a lumbar puncture to tell for sure. Per Maria L, Sarah feels that she is going to get better. Maria L is worried about Sarah's safety moving forward due to her complex care needs and hx of falls. Maria L would like to discuss her concerns and goals of care with a Palliatve care provider. CM notified Palliative Care. ADVANCE DIRECTIVES:: HCA and DPOA is Maria L Staley, on file. Has patient been provided with info about the portal/API?: Yes Did the patient sign up for the portal?: No CODE STATUS:: Full Code INSURANCE COVERAGE / FINANCIAL ISSUES:: Medicaid. Medicare CURRENT HOME/COMMUNITY SERVICES/EQUIPMENT:: Lives at the [facility]. Has a walker, cane and a wheelchair. Also has a motorized w/c but does not have the strength to use it. PRIMARY CARE PHYSICIAN:: [facility] POTENTIAL DISCHARGE NEEDS:: Palliative care visit, to discuss goals of care. PATIENT/FAMILY EDUCATION NEEDS:: Review discharge instructions, limitations, medications and plan to follow up with community providers. ask me three. TRANSPORTATION:: dependent on patients mobility and disposition at time of discharge. PLAN:: Anticipate, Sarah will discharge back to the [facility]. SNF for STR when medically ready per M.D. A palliative care consult is planned for tomorrow. Transportation will be dependent on patients mobility at the time of discharge, she will likely transport via EMS. will continue to support Sarah and her discharge planning needs.
--- NOTE | 2021-08-11 11:26 | PGE_ITS ---
Date of Service Date of service: 08/11/21 Time of Service: 10:26 Assessment and Plan Assessment and plan (1) COVID-19: Status: Acute Assessment and plan: 8 days since first test no oxygen requirements isolation (2) Brain tumor: Status: Acute Assessment and plan: seen by Dr Bunn MRI reviewed and no acute changes from previous will continue with scheduled follow up with her neurologist outpatient as previously arranged. will check dilantin level (3) Debility: Status: Acute Assessment and plan: PT/OT anticipate swing level discharge if unable to safely reambulate (4) Sinusitis: Status: Acute Assessment and plan: may be contributing to debility will treat with augmentin (5) Discharge planning issues: Status: Acute Assessment and plan: pending PT recommendations case management following discussed with Dr Rizo Subjective Subjective Patient reports: no new complaints and afebrile Exam Const General: cooperative, comfortable, frail appearing and ill appearing (older than stated age) chronically Nutritional Appearance: average body habitus Orientation: alert and awake Chest Chest: normal inspection of the chest Resp Auscultation: clear to auscultation bilaterally Cardio Rate: regular rate Rhythm: regular rhythm Skin Lesions: lesion noted (old abrasion to nose healing, no erythema) Neuro Speech: abnormal speech other (dysarthria, at baseline) Extrem General: full ROM and no pedal edema Objective Last Vital Signs Temp 36.4 C L 08/11/21 08:38 Pulse 81 08/11/21 08:38 Resp 22 08/11/21 08:38 BP 129/93 H 08/11/21 08:38 Pulse Ox 95 08/11/21 08:38 Laboratory Results - last 24 hr 08/10/21 08/10/21 08/10/21 20:25 20:25 22:35 WBC 4.22 L RBC 4.41 Hgb 12.3 Hct 37.9 MCV 86 MCH 27.9 MCHC 32.5 RDW 14.2 Plt Count 229 MPV 9.1 Immature Gran % 0.2 Neutrophils % 54.1 Lymphocytes % 30.6 Monocytes % 9.2 Eosinophils % 5.7 Basophils % 0.2 Nucleated RBC % 0.0 Absolute Neutrophils 2.28 Absolute Lymphocytes 1.29 Absolute Monocytes 0.39 Absolute Eosinophils 0.24 Absolute Basophils 0.01 Sodium 139 Potassium 3.8 Chloride 102 Carbon Dioxide 31.9 Anion Gap 5.1 BUN 8 Creatinine 0.7 Estimated GFR/1.73 m2 >= 60.00 Glucose 78 Calcium 8.3 L Total Bilirubin 0.3 AST 40 H ALT 42 Alkaline Phosphatase 100 Total Protein 6.7 Albumin 3.3 L TSH 2.62 Urine Color Urine Clarity Urine pH Ur Specific [place] Urine Protein Urine Ketones Urine Blood Urine Nitrite Urine Bilirubin Urine Urobilinogen Ur Leukocyte Esterase Urine Glucose Urine Opiates Screen Negative Urine Methadone Screen Negative Ur Barbiturates Screen Negative Ur Tricyclics Screen Negative Ur Amphetamines Screen Negative U Benzodiazepines Scrn Negative Urine Cocaine Screen Negative Ur THC Screen Positive A 08/10/21 08/11/21 22:35 06:05 WBC 4.41 RBC 4.48 Hgb 12.3 Hct 38.5 MCV 86 MCH 27.5 MCHC 31.9 L RDW 14.2 Plt Count 231 MPV 9.0 Immature Gran % 0.2 Neutrophils % 49.0 Lymphocytes % 34.9 Monocytes % 10.0 Eosinophils % 5.7 Basophils % 0.2 Nucleated RBC % 0.0 Absolute Neutrophils 2.16 Absolute Lymphocytes 1.54 Absolute Monocytes 0.44 Absolute Eosinophils 0.25 Absolute Basophils 0.01 Sodium Potassium Chloride Carbon Dioxide Anion Gap BUN Creatinine Estimated GFR/1.73 m2 Glucose Calcium Total Bilirubin AST ALT Alkaline Phosphatase Total Protein Albumin TSH Urine Color Yellow Urine Clarity Clear Urine pH 7.0 Ur Specific [place] 1.025 Urine Protein Negative Urine Ketones Trace H Urine Blood Negative Urine Nitrite Negative Urine Bilirubin Negative Urine Urobilinogen 0.2 Ur Leukocyte Esterase Negative Urine Glucose Negative Urine Opiates Screen Urine Methadone Screen Ur Barbiturates Screen Ur Tricyclics Screen Ur Amphetamines Screen U Benzodiazepines Scrn Urine Cocaine Screen Ur THC Screen
[2021-08-11] MEDS: clonazePAM 0.5 MG TAB 0.25 MG PO (11:43)
[2021-08-11] MEDS: risperiDONE 1 MG TAB 2 MG PO (11:43)
[2021-08-11] MEDS: Calcium 600mg/Vit D 200U TAB 1 TAB PO (11:44)
[2021-08-11] MEDS: Loratidine 10 MG TAB PO (11:45)
[2021-08-11] MEDS: busPIRone 15 MG TAB 30 MG PO (11:46)
[2021-08-11 11:54] LABS: Source Nasal/Nares
[2021-08-11 12:42] LABS: COVID-19 PCR POSITIVE (Negative)
--- NOTE | 2021-08-11 13:45 | IN_ITS ---
Date of service: 08/11/21 Time of Service: 13:45 PT Notes Visit Reasons: Worsening Weakness and Ataxia, Falls Physical Therapy Inpatient Initial Evaluation Date: 08/11/2021 Referring Doctor: Jalen Medina MD PT Orders: PT CONSULT: Eval/treat Precautions: Fall. Standard. Activity as tolerated. Patient Profile/Admitting Diagnosis: Sarah is a 51-year-old female who presented to the ED with repeated falls and worsening mental status. Patient with diagnosis of debility, brain tumor, COVID-19 infection, history of CVA, chronic ataxia, and eizure. PMHX: All Active Problems?(Updated 08/10/21 @ 22:49 by Jalen Medina MD) Discharge planning issues (Acute) Falls (Acute) Debility (Acute) COVID-19 (Acute) 08/04/21/ppsExcessive cerumen in ear canal (Acute) Perioral dermatitis (Acute) Physical deconditioning (Acute) Dysarthria (Acute) Hyponatremia (Acute) Bacteria in urine (Acute) Dysarthria (Acute) Brain tumor (Acute) recurrent hemangiopericytoma; resected 04/2019 [facility] [place] Seizure (Acute) History of colectomy (Acute) History of excision of mass (Acute) Status post tonsillectomy (Acute) Persistent mood disorder (Chronic) Status post CVA (Acute 12/14/12) 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 RESECTED 12/10/12 and 12/14/12 perioperative infarct. 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 Colectomy (06/18/13) DR. Anupama PARSONS Colonoscopy - MAC (05/24/13) Colonoscopy - MAC (06/19/17) Excision, Lesion (06/07/16) sacral lesion, fibroadipose tissue Excision, Lipoma (04/04/14) ABDOMINAL WALL Tonsillectomy (~1997) Social History/Home Situation: [facility] resident. States that she used rollator for short in-room distances to walk but then uses a wheelchair for long distances. Equipment Owned/DME: Rollator, wheelchair Subjective: Agreeable to PT consult and to attempting to get out of bed. Denies headache, chest pain, and dizziness throughout session. Objective: General Observation: Supine in bed. Orofacial dyskinesia seen. Athetoid movements of trunk and appendages seen with movement. Abrasion on nose and mouth from recent fall. Mental Status: Alert and oriented as to person and place. Able to pay attention and follow instructions. Speech dysarthic. Pain: Denies ROM: Right Upper Extremity: Shoulder Flexion WFL. Shoulder abduction WFL. Elbow flexion WFL. Wrist flexion WFL. Functional opening and closing of hand WFL. Left Upper Extremity: Shoulder Flexion WFL. Shoulder abduction WFL. Elbow flexion WFL. Wrist flexion WFL. Functional opening and closing of hand WFL. Right Lower Extremity: Hip flexion WFL. Hip abduction WFL. Knee flexion WFL. A nkle dorsiflexion WFL. Ankle plantarflexion WFL. Left Lower Extremity: Hip flexion WFL. Hip abduction WFL. Knee flexion WFL. Ankle dorsiflexion WFL. Ankle plantarflexion WFL. Strength: Right Upper Extremity: Shoulder flexors 4/5. Shoulder abductors 4/5. Elbow flexors 5/5. Elbow extensors 5/5. Before School Babysitter strong. Left Upper Extremity: Shoulder flexors 4/5. Shoulder abductors 5/5. Elbow flexors 5/5. Elbow extensors 5/5. Before School Babysitter strong. Right Lower Extremity: Hip flexors 4-/5. Hip abductors 4-/5. Knee flexors 4/5. Knee extensors 4/5. Ankle dorsiflexors 4-/5. Ankle plantarflexors 4-/5. Left Lower Extremity: Hip flexors 4-/5. Hip abductors 4-/5. Knee flexors 4/5. Knee extensors 4/5. Ankle dorsiflexors 4-/5. Ankle plantarflexors 4-/5. Bed Mobility/Transfers: Supine to sit with stand by assist Sit to supine with contact guard assist Sit to stand with minimal assist Stand to sit with minimal assist Bed to reclining chair moderate assist Gait: Instructed patient with level surface ambulation of 5 feet requiring moderate assist. B LE athetoid movement more than in B UE increasing risk for falls. Writhing movement in trunk compounds an already compromised stability. Has more control if movement is done slowly. Gait significantly ataxic. Balance: Static Sitting: Good Dynamic Sitting: Fair Static Standing: Fair Dynamic Standing: Poor Special Tests: Mobility Limitations Standardized Measure [facility] AM-PAC 6 clicks Basic Mobility Inpatient Short Form: Raw Score: 12 CMS Score: 69% deficit Informed Consent/Education: Patient was instructed in purpose of PT consult and plan of care. Agreeable to proceed with established PT POC to achieve personal goals. Assessment: Patient demonstrates movement disorders in face, trunk, and B UE/LE which may have been chronic (or acutely exacerbated) that are negatively impacting mobility ADL performance and increasing risk for falls. Strength in UE and LE symmetric. Balance significantly off due to athetoid movements of B UE/LE as well as ataxia from cerebellar affectation. Patient presents with clinical signs and symptoms consistent with current/admitting diagnoses that have resulted to mobility limitations, gait instability, generalized weakness, and overall ADL decline as demonstrated by the following impairment level findings: 1. Decreased strength to B hip and knee major muscle groups 2. Impaired sitting/standing balance 3. Impaired activity tolerance 4. Limitation of joint range of motion in 5. Athetoid movements in trunk, B UE/LE 6. Ataxic gait Impairments are contributing to the following functional limitations: 1. Decline in bed mobility skills 2. Decline in transfer skills 3. Difficulty with ambulation without assistive device and physical assistance 4. Increased completion time for mobility ADL performance 5. Increased risk for falls 6. Difficulty with managing steps alone safely Patient is assessed as a 76135 high complexity based on the following: History: 51-year-old female with past medical history as indicated above Examination: Demonstrable impairment in strength, balance, and mobility level with underlying impairments and functional limitations as exhibited above as well as deficit score of 69% utilizing the [facility] Mobility Inpatient Short Form Presentation: Evolving Decision Makin high complexity Goals: Goals X1 week 1. Supine-Sit supervision 2. Sit-Supine supervision 3. Sit-Stand supervision 4. Stand-Sit contact-guard assist with FWW 5. Bed-Chair contact-guard assist with FWW 6. Chair-Bed i contact-guard assist with FWW 7. Minimal assist gait on level surface with use of FWW for at least 30 feet without report of pain nor dyspnea 8. Good static and dynamic standing balance/tolerance Plan of Care/Treatment Plan: 1-2x/day, 7 days/week x 1 week. Plan of care has been reviewed with the BUILDING COORDINATOR providing the service under Physical Therapy direction. Initiate Physical Therapy intervention for pain management as needed, strengthening, bed mobility, transfers, gait, stairs, balance training, and use of assistive device. DISCHARGE RECOMMENDATIONS: Home with no services [] [] Home with services [specify] [] Home with outpatient PT [] [X] SNF for continued rehabilitation. Patient will benefit from correction facility placement for continued skilled physical therapy services in order to progress mobility level, strength, and balance. [X] [facility]. May be potentially a LTC resident due to admitting diagnoses and comorbidities [] SNF versus LTC based on ability to participate and progress [] TREATMENT CODE/TIME: 07936 x 30 minutes, 27303 x 14 minutes beginning at 13:45 PM. Thank you for the opportunity to participate in the care of this patient. Rosemary Allen PT, DPT, CLT [facility] [place], [place]
--- NOTE | 2021-08-11 16:01 | NCONE_ITS ---
Date of service: 08/11/21 Time of Service: 16:00 Assessment and Plan Assessment and plan (1) Hemangiopericytoma: Status: Acute (2) Altered mental status: Status: Acute (3) Status post CVA: Status: Acute (4) COVID-19: Status: Acute (5) Sinusitis: Status: Acute (6) Falls: Status: Acute Assessment and plan: Ms. Staley's neurological exam appears generally the same when compared to exam performed by neuro-oncologist Dr. Gricelda Hewitt on 06/25/21. Her brain MRI appears stable compared to 06/23/21 images with stable vs diminished R insula lesion and stable C1 lesion. She has stable post-surgical and stroke changes with stable atrophy of the cerebellum. I suspect increased falls and AMS are due to deconditioning/acute illness from recent COVID +/- sinusitis. However, it sounds like she has had decline in the last 1 year as well. Consider checking a vitamin B12 level. Agree with PT/OT. Continue outpatient seizure medications as Rx'd. She should f/up closely with Dr. Hewitt as scheduled. Please call with any further questions or concerns. History of Present Illness History of Present Illness Chief Complaint: increased falls and altered mental status Narrative: Handedness: right. HPI: Ms. 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 She suffered her first seizure in 2019 at which time she was found to have tumor recurrence in the left supraclinoid and paracavernous region. This was again treated with surgical resection and radiation. She had further seizures for which seizure medications were titrated now on a combination of LEV, PHE, and clonazepam. She was found to have further tumor recurrence in 2020 on surveillance testing at C1-2 for which she was again treated with radiation, complicated by left temporal necrosis in Nov 2020, improved with steroids. She follows with [facility] neuro-oncologist Dr. Gricelda Hewitt. Last imaging was performed here on 06/23/21 which I was able to view personally and shows a small new right insular leptomeningieal mass. Plan was to follow closely with repeated imaging in August 2021 with brain and complete DRUG ABUSE PROGRAM COORDINATOR axis imaging. Per Dr. Hewitt's notes, she has experiences a cognitive decline over the last 1 year and more recently was experiencing subtle left hemiparesis - which prompted the updated imaging performed in May. She was brought to the [facility] ER by her assisted living home for increased weakness, falls, and altered mental status over the last several days. She tested positive for COVID on 08/03/21. She was treated outpatient with bebtelovimab. She recalls being quite well and in bed/sleeping for 3 days. Feeling much better but still very fatigued. She has nasal congestion. She has an updated brain MRI w/wo performed today. I viewed the images personally. I do not seen any acute findings. the right insular lesion appears stable vs slightly diminished compared to the May MRI. She has an apparent stable C1 mass. She has post surgical changes of the left cerebellum and medulla with encephalomalacia in the same and left temporal lobe. She has sign ificant cerebellar atrophy. Her phenytoin level was 10.1 upon admission. TSH normal. +THC. 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 RESECTED 12/10/12 and 12/14/12 perioperative infarct. 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 Anupama PARSONS Colonoscopy - MAC (05/24/13) Colonoscopy - MAC (06/19/17) Excision, Lesion (06/07/16) sacral lesion, fibroadipose tissue Excision, Lipoma (04/04/14) ABDOMINAL WALL Tonsillectomy (~1997) Family History Mother Diabetes Heart disease Hyperlipidemia Father Diabetes Essential hypertension Heart disease Hyperlipidemia Sister Diabetes Depression Brother , AGE 32 Stroke Essential hypertension Hyperlipidemia Maternal Grandfather Diabetes Stroke Paternal Grandfather No problems noted. Maternal Grandmother No problems noted. Paternal Grandmother Alzheimer disease Depression Daughter Essential hypertension Depression Social History Smoking/Tobacco Use Status: Former Tobacco Use Tobacco: How many years used: 30 Quit status: has quit before Smoking risk assessment performed?: Yes Alcohol Intake: current Alcohol Intake frequency: a few times a month Alcohol type: beer, wine and hard liquor Drug use: Never Substance use type: does not use Caregiver/Support person: No Household members: none Housing: other Details: [facility] current occupation: disable Sexually active: No Do you think of yourself as: straight/heterosexual Current gender identity: female Duration: 60-90 minutes/day Frequency: 5-6 times per week Oapl/Synagogue: No preference Special opal needs: No Seatbelt use: always Do you feel safe at home: Yes (unk) Do you feel safe in your relationship?: Yes Visit Medication and Allergies Active Medications Generic Name Dose Route Start Last Admin Trade Name Freq PRN Reason Stop Dose Admin Acetaminophen 0 mg 08/10/21 22:29 Acetaminophen 325 Mg Tab PO Q4H PRN PRN Buspirone HCl 30 mg 08/11/21 08:30 08/11/21 11:46 Buspirone 15 Mg Tab PO 30 mg QAM KOBE Administration Buspirone HCl 15 mg 08/11/21 22:00 Buspirone 15 Mg Tab PO HS KOBE Calcium/Vitamin D 1 tab 08/11/21 08:30 08/11/21 11:44 Calcium 600mg/Vit D 200u Tab PO 1 tab DAILY KOBE Administration Clonazepam 0.25 mg 08/11/21 08:30 08/11/21 11:43 Clonazepam 0.5 Mg Tab PO 0.25 mg DAILY KOBE Administration Dimethicone/Zinc Oxide 0 gm 08/10/21 22:24 Juventino Protect Cream 142 Gm Tube TP PRN PRN Duloxetine HCl 60 mg 08/11/21 08:30 08/11/21 09:33 Duloxetine 30 Mg Cap PO 60 mg BID KOBE Administration Enoxaparin Sodium 40 mg 08/11/21 08:00 08/11/21 03:33 Enoxaparin 40 Mg/0.4 Ml Syr SC 40 mg Q24H KOBE Administration Fluticasone Propionate 0 gm 08/11/21 08:30 Fluticasone Nasal [place] 16 Gm Btl NS DAILY KOBE Gadoterate Meglumine 12 ml 08/11/21 09:45 08/11/21 09:46 Gadoterate Meglumine 20 Ml Vial IVP 09/10/21 23:59 12 ml DIRECTED KOBE Administration Sodium Chloride 500 mls @ 0 mls/hr 08/11/21 10:55 Saline 500ml Bag IV PRN PRN As Directed IV Miscellaneous Supplies 1 each 08/11/21 11:00 Iv Access IV DIRECTED KOBE Levetiracetam 1,500 mg 08/11/21 08:30 08/11/21 09:33 Levetiracetam 500 Mg Tab PO 1,500 mg BID KOBE Administration Loratadine 10 mg 08/11/21 08:30 08/11/21 11:45 Loratidine 10 Mg Tab PO 10 mg DAILY KOBE Administration Magnesium Hydroxide 30 ml 08/10/21 22:29 Milk Of Magnesia 30 Ml Cup PO DAILY PRN PRN Mineral Oil/White Petrolatum 0 gm 08/10/21 22:33 Lacri-Lube 3.5 Gm Tube OP Q4H PRN PRN dry eyes Oxybutynin Chloride 10 mg 08/11/21 08:30 08/11/21 09:33 Oxybutynin-Cr 5 Mg Tabcr PO 10 mg DAILY KOBE Administration Phenytoin Sodium 100 mg 08/11/21 08:30 08/11/21 09:33 Phenytoin-Extended 100 Mg Cap PO 100 mg BID KOBE Administration Polyethylene Glycol 17 gm 08/10/21 22:29 Polyethylene Glycol 3350 17 Gm Packet PO DAILY PRN PRN Constipation Risperidone 2 mg 08/11/21 08:30 08/11/21 11:43 Risperidone 1 Mg Tab PO 2 mg DAILY KOBE Administration Sodium Chloride 0 ml 08/11/21 10:55 Normal Saline Flush 10 Ml Syr IVP PRN PRN Allergies oxycodone Allergy (Severe, Verified 06/09/21 13:43) Exam Narrative Exam Narrative: Physical Exam: Limited testing as patient is under COVID precautions Constitutional: Patient of apparent stated age, well nourished, well developed, no acute distress Head/neck: redness and dried/cracked skin around the mouth; abrasion on tip of nose which she says is from a fall Neuro: MS/Language/Speech: Alert, oriented to person, place (knew she was in [facility]) and time (2021 but thought it was June); cerebellar scanning/halting speech with expressive aphasia/word substitution and impaired naming and repetition (able to identify hand and thumb but called finer pencils); able to follow simple commands and 3-step across the midline CN: EOM appear full; no obvious dysconjugate seen by me; visual durán appear full, trigeminal sensation intact, no facial asymmetry, hearing intact , palate elevates symmetrically, tongue protrudes midline, SCM and trap strength intact Motor: Normal bulk and tone. FMM reduced bilaterally, L>R. Slight L upward drift. Subtle R hemiparesis, but 5/5 strength on left. Laying on right side in bed. Sensation: Intact to light touch throughout Reflexes: no hyperreflexia, toes neutral bilaterally Coordination: Mild bilateral UE ataxia seen Gait: not tested - patient is wheelchair bound Results Last Vital Signs Temp 97.5 F L 08/11/21 15:07 Pulse 81 08/11/21 15:07 Resp 20 08/11/21 15:07 BP 134/103 H 08/11/21 15:07 Pulse Ox 96 08/11/21 15:07 Labs Result diagrams: 08/11/21 06:05 08/10/21 20:25 Labs: Laboratory Results - last 24 hr 08/10/21 08/10/21 08/10/21 20:25 20:25 22:35 WBC 4.22 L RBC 4.41 Hgb 12.3 Hct 37.9 MCV 86 MCH 27.9 MCHC 32.5 RDW 14.2 Plt Count 229 MPV 9.1 Immature Gran % 0.2 Neutrophils % 54.1 Lymphocytes % 30.6 Monocytes % 9.2 Eosinophils % 5.7 Basophils % 0.2 Nucleated RBC % 0.0 Absolute Neutrophils 2.28 Absolute Lymphocytes 1.29 Absolute Monocytes 0.39 Absolute Eosinophils 0.24 Absolute Basophils 0.01 Sodium 139 Potassium 3.8 Chloride 102 Carbon Dioxide 31.9 Anion Gap 5.1 BUN 8 Creatinine 0.7 Estimated GFR/1.73 m2 >= 60.00 Glucose 78 Calcium 8.3 L Total Bilirubin 0.3 AST 40 H ALT 42 Alkaline Phosphatase 100 Total Protein 6.7 Albumin 3.3 L TSH 2.62 Urine Color Urine Clarity Urine pH Ur Specific [place] Urine Protein Urine Ketones Urine Blood Urine Nitrite Urine Bilirubin Urine Urobilinogen Ur Leukocyte Esterase Urine Glucose Urine Opiates Screen Negative Urine Methadone Screen Negative Ur Barbiturates Screen Negative Ur Tricyclics Screen Negative Ur Amphetamines Screen Negative U Benzodiazepines Scrn Negative Urine Cocaine Screen Negative Ur THC Screen Positive A COVID-19 Source SARS-CoV-2 (PCR) 08/10/21 08/11/21 08/11/21 22:35 06:05 11:50 WBC 4.41 RBC 4.48 Hgb 12.3 Hct 38.5 MCV 86 MCH 27.5 MCHC 31.9 L RDW 14.2 Plt Count 231 MPV 9.0 Immature Gran % 0.2 Neutrophils % 49.0 Lymphocytes % 34.9 Monocytes % 10.0 Eosinophils % 5.7 Basophils % 0.2 Nucleated RBC % 0.0 Absolute Neutrophils 2.16 Absolute Lymphocytes 1.54 Absolute Monocytes 0.44 Absolute Eosinophils 0.25 Absolute Basophils 0.01 Sodium Potassium Chloride Carbon Dioxide Anion Gap BUN Creatinine Estimated GFR/1.73 m2 Glucose Calcium Total Bilirubin AST ALT Alkaline Phosphatase Total Protein Albumin TSH Urine Color Yellow Urine Clarity Clear Urine pH 7.0 Ur Specific [place] 1.025 Urine Protein Negative Urine Ketones Trace H Urine Blood Negative Urine Nitrite Negative Urine Bilirubin Negative Urine Urobilinogen 0.2 Ur Leukocyte Esterase Negative Urine Glucose Negative Urine Opiates Screen Urine Methadone Screen Ur Barbiturates Screen Ur Tricyclics Screen Ur Amphetamines Screen U Benzodiazepines Scrn Urine Cocaine Screen Ur THC Screen COVID-19 Source Nasal/Nares SARS-CoV-2 (PCR) POSITIVE A*
[2021-08-11 18:43] LABS: PHENYTOIN (DILANTIN) 10.1 ug/mL (10.0-20.0)
[2021-08-11] MEDS: Amoxicillin 875/Clav. 125 TAB PO (19:48)
[2021-08-11] MEDS: busPIRone 15 MG TAB PO (23:05)
[2021-08-12 03:40] VITALS: BP 122/86; PULSE 84; RESP 15; TEMP 36.8; O2SAT 100
[2021-08-12 07:36] VITALS: BP 137/101; PULSE 66; RESP 22; TEMP 37.3; O2SAT 97
[2021-08-12] MEDS: Amoxicillin 875/Clav. 125 TAB PO ×2 (08:08→22:00)
[2021-08-12] MEDS: busPIRone 15 MG TAB 30 MG PO (08:09)
[2021-08-12] MEDS: Fluticasone NASAL SPRAY 16 GM BTL NS (08:09)
[2021-08-12] MEDS: risperiDONE 1 MG TAB 2 MG PO ×2 (08:09→22:01)
[2021-08-12] MEDS: Loratidine 10 MG TAB PO (08:09)
[2021-08-12] MEDS: Oxybutynin-CR 5 MG TABCR 10 MG PO (08:09)
[2021-08-12] MEDS: levETIRAcetam 500 MG TAB 1500 MG PO ×2 (08:09→22:01)
[2021-08-12] MEDS: Calcium 600mg/Vit D 200U TAB 1 TAB PO (08:09)
[2021-08-12] MEDS: DULoxetine 30 MG CAP 60 MG PO ×2 (08:09→22:01)
[2021-08-12] MEDS: clonazePAM 0.5 MG TAB 0.25 MG PO (08:10)
[2021-08-12] MEDS: Enoxaparin 40 MG/0.4 ML SYR SC (08:10)
--- NOTE | 2021-08-12 09:26 | CMPROGNOTE_ITS ---
- If Service Date Differs Date of service: 08/12/21 Time of Service: 09:26 Care Management Progress Note S/O: Sarah is covid positive and on isolation precautions. She feels sad, lonely and isolated. She has called her sister crying a few times. CM discussed this with Charlene Lundy and a sitter is an option. In addition, Sarah's FIBER MACHINE TENDER shares that Sarah is confused and has been getting up out of bed every few minutes. Sarah is at increased risk for falls and would likely be safer and have her social needs met with a sitter. CM notified Page the RN security site supervisor and there is a plan in place for staffing. Sarah and Maria L (via phone) met with Palliative Care today to discuss goals of care. Following the visit, BRANDIN sent a referral to the [facility], to see if discharging to their facility on hospice or conservative care would be an option. A: 51 year old female admitted to [facility] on 08/10/21 for Acute Debility, COVID-19, Brain tumor. P: Anticipate, Sarah will discharge back to the [facility] vs. the [facility], when medically able. She may discharge on Hospice. Transportation will be dependent on patients mobility at the time of discharge, she will likely transport via EMS. CM will continue to support Sarah and her discharge planning needs.
[2021-08-12 10:23] LABS: Bilirubin Negative (Negative); Blood Small (Negative); Clarity Clear (Clear); Glucose Negative (Negative); Ketones Negative (Negative); Leukocyte Esterase Trace (Negative); Nitrite Negative (Negative); Specific Gravity 1.025 (1.005-1.025); Urobilinogen 0.2 EU/dL (Up TO 0.2); pH 8.5 (5-8)
[2021-08-12 10:30] LABS: Bacteria Rare HPF (Negative); Casts 3-5 Hyaline LPF (Negative); Crystals Negative HPF (Negative); Epithelial Cells Few HPF (Negative); Mucus Negative (Negative); RBC 20-50 HPF (0-2)
[2021-08-12 10:31] LABS: C & S Indicated? Yes
--- NOTE | 2021-08-12 11:14 | PT.INNT ---
Date of service: 08/12/21 Time of Service: 10:14 PT Notes Visit Reasons: Worsening Weakness and Ataxia, Falls 08/12/2021 Sarah pleasantly declines to participate in PT today. She states that she is aware of a meeting later. She states that she feels ok right now, but that she is freezing. She feels much better with warm blankets and reports that she will consider getting out of bed later.
[2021-08-12] MEDS: clonazePAM 1 MG TAB PO ×2 (12:58→22:02)
[2021-08-12] MEDS: Dronabinol 2.5 MG CAP 5 MG PO ×2 (12:58→22:00)
--- NOTE | 2021-08-12 13:15 | PCNE_ITS ---
Date of service: 08/12/21 Time of Service: 12:16 History of Present Illness Narrative: Sarah Staley is a 51 year old female with PMHx significant for hemangiopericytoma brain tumor s/p radiation and resection, intraoperative stroke of cerebellum seizures and recurrent brain tumors, dysarthria, chronic ataxia, Colon CA, depression/anxiety, previous tobacco user. She is followed by [facility] neuro-oncologist Dr. Gricelda Hewitt. She is a resident of [facility]. Several patients at the assisted living facility contracted COVID-19 including Sarah. Palliative was consulted to discuss goals of care. Sarah has previously named her sister, Maria L to be her health care agent. She has Health care agent paperwork on file. It appears that she has been declining over time and having more difficulty caring for herself at . Her recent increased falls and altered mental status are likely related to COVID-19. There were concerns at prior to her having COVID, that she may be nearing a level of care where she can stay there any longer. Sarah had a fall yesterday while at the hospital. During her visit today, there were times where she was able to answer questions appropriately and other times where she had difficulty finding words and used words inappropriately. Her sister and health care agent, Maria L, is very involved in her care. I spoke with her sister, Maria L on the phone. She could not be present due to Sarah being positive for COVID. Maria L reports that Sarah occasionally seems to understand her health care, however, she does not remember conversations and gets very confused. Sarah called Maria L this morning, crying and upset, she did not know where she was. She could not remember getting to the hospital. Sarah told Maria L that she thought she was going to . Maria L is clear that Sarah is a DNR/DNI. 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 Martinez. Her life expectancy is thought to be weeks to months. Maria L would like her sister to be enrolled in hospice and would prefer for her to go to the [facility] where her cousin works. 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: Status: Acute (7) Dysarthria: Status: Acute (8) Physical deconditioning: Status: Acute (9) Debility: Status: Acute (10) Falls: Status: Acute (11) Altered mental status: Status: Acute (12) Palliative care patient: Status: Acute Assessment and plan: Sarah is a very pleasant 51 year old female with a past medical history significant for hemangiopericytoma brain tumor s/p radiation and resection, intraoperative stroke of cerebellum, seizures and recurrent brain tumors, dysarthria, chronic ataxia, Colon CA, depression/anxiety, previous tobacco us er.?She is followed by [facility] neuro-oncologist Dr. Gricelda Hewitt. Her sister, Maria L, is her DPOA and is clear that she is a DNR/DNI. We will complete a COLST at next visit. Her sister reports that she has been declining prior to getting COVID. She has been weaker, having falls and increased confusion. Maria L had a discussion with Dr. 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 Her life expectancy is thought to be weeks to months. Maria L would like her sister to be enrolled in hospice and would prefer for her to go to the [facility] where her cousin works. CM to assist with referral. Palliative will continue to follow until she is enrolled in hospice. Review of Systems Narrative: +cough, denies SOB, wheezing. No pain. Cannot taste some foods. Appetite is poor. 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 RESECTED 12/10/12 and 12/14/12 perioperative infarct. 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 Anupama PARSONS Colonoscopy - MAC (05/24/13) Colonoscopy - MAC (06/19/17) Excision, Lesion (06/07/16) sacral lesion, fibroadipose tissue Excision, Lipoma (04/04/14) ABDOMINAL WALL Tonsillectomy (~1997) Family History Mother Diabetes Heart disease Hyperlipidemia Father Diabetes Essential hypertension Heart disease Hyperlipidemia Sister Diabetes Depression Brother , AGE 32 Stroke Essential hypertension Hyperlipidemia Maternal Grandfather Diabetes Stroke Paternal Grandfather No problems noted. Maternal Grandmother No problems noted. Paternal Grandmother Alzheimer disease Depression Daughter Essential hypertension Depression Social History Smoking/Tobacco Use Status: Former Tobacco Use Tobacco: How many years used: 30 Quit status: has quit before Smoking risk assessment performed?: Yes Alcohol Intake: current Alcohol Intake frequency: a few times a month Alcohol type: beer, wine and hard liquor Drug use: Never Substance use type: does not use Caregiver/Support person: No Household members: none Housing: other Details: [employer] [facility] current occupation: disable Sexually active: No Do you think of yourself as: straight/heterosexual Current gender identity: female Duration: 60-90 minutes/day Frequency: 5-6 times per week Opal/Congregation: No preference Special opal needs: No Seatbelt use: always Do you feel safe at home: Yes (unk) Do you feel safe in your relationship?: Yes Exam Narrative Exam Narrative: General: very pleasant, middle aged female, appears older than stated age. She is laying in bed, she is able to answer some questions appropriately, however she struggles with word-finding difficulty and seemed to become more confused as the visit progressed. HEENT: +tremor, wearing glasses with dark lens on left, mucous membranes moist. Abrasion to nose, dry skin around left side of mouth. Neck: supple, no JVD. Respiratory: respirations appear even and unlabored. No coughing noted during visit. Extremities: trace pitting edema to BLEs. Results Last Vital Signs Temp 37.3 C 08/12/21 07:36 Pulse 66 08/12/21 07:36 Resp 22 08/12/21 07:36 BP 137/101 H 08/12/21 07:36 Pulse Ox 97 08/12/21 07:36 Labs Result diagrams: 08/11/21 06:05 08/10/21 20:25 Labs: Laboratory Results - last 24 hr 08/10/21 08/11/21 08/12/21 20:25 16:38 10:05 Urine Color Yellow Urine Clarity Clear Urine pH 8.5 H Ur Specific [place] 1.025 Urine Protein 100 H Urine Ketones Negative Urine Blood Small H Urine Nitrite Negative Urine Bilirubin Negative Urine Urobilinogen 0.2 Ur Leukocyte Esterase Trace H Urine RBC 20-50 H Urine WBC 5-10 Ur Epithelial Cells Few Urine Crystals Negative Urine Bacteria Rare Urine Casts 3-5 Hyaline Urine Mucus Negative Ur Culture Indicated? Yes Urine Glucose Negative Phenytoin 10.1 Cancelled
--- NOTE | 2021-08-12 13:34 | PGE_ITS ---
Date of Service Date of service: 08/12/21 Time of Service: 13:35 Assessment and Plan Assessment and plan (1) COVID-19: Start date: 08/12/21 Start time: 14:10 Status: Acute Assessment and plan: 9 days since first test no oxygen requirements isolation No sx LSC, diminished (2) Brain tumor: Start date: 08/12/21 Start time: 14:11 Status: Acute Assessment and plan: seen by Dr Bunn MRI reviewed and no acute changes from previous will continue with scheduled follow up with her neurologist outpatient as previously arranged. will check dilantin level Patient does not realize severity of disease Palliative care consult today. Likely will be going on hospice. Sister DPOA. Likely patient will not understand what is going on and sister will need to make decisions (3) Debility: Start date: 08/12/21 Start time: 14:13 Status: Acute Assessment and plan: PT/OT anticipate swing level discharge if unable to safely reambulate (4) Sinusitis: Start date: 08/12/21 Start time: 14:13 Status: Acute Assessment and plan: may be contributing to debility will treat with Augmentin (5) Discharge planning issues: Start date: 08/12/21 Start time: 14:13 Status: Acute Assessment and plan: No worsening brain mass. Meeting today as above case management following discussed with Dr Rizo Subjective Subjective Patient reports: other Interval history since last seen: Patient called on the phone. Confused when answering questions. Palliative/hospice appt today with sister present. Patient confused not totally understanding of what was being asked. She did state no pain. If unable to make decisions, her sister is her DPOA and will help make decisions for her. Exam Const General: cooperative, comfortable, no acute distress, frail appearing and ill appearing Orientation: alert, awake, not oriented x3, oriented to person and confused Eyes Eyelids: eyelids normal Pupils: PERRL EOM: EOM intact bilaterally Neck Neck: normal visual inspection and no JVD Lymphatic: no lymphadenopathy noted Resp Effort & Inspection: normal respiratory effort and able to speak in complete sentences Auscultation: clear to auscultation bilaterally and diminished lung sounds Cardio Jugular venous pressure: no JVD Rhythm: regular rhythm Heart Sounds: S1 normal GI Auscultation: normal bowel sounds Skin General skin exam: no rashes or lesions noted Neuro General: patient alert, patient awake and not oriented x3 Gait: normal gait Extrem General: normal to inspection, full ROM and no clubbing, cyanosis or edema Objective Last Vital Signs Temp 37.3 C 08/12/21 07:36 Pulse 66 08/12/21 07:36 Resp 22 08/12/21 07:36 BP 137/101 H 08/12/21 07:36 Pulse Ox 97 08/12/21 07:36 Laboratory Results - last 24 hr 08/10/21 08/11/21 08/12/21 20:25 16:38 10:05 Urine Color Yellow Urine Clarity Clear Urine pH 8.5 H Ur Specific [place] 1.025 Urine Protein 100 H Urine Ketones Negative Urine Blood Small H Urine Nitrite Negative Urine Bilirubin Negative Urine Urobilinogen 0.2 Ur Leukocyte Esterase Trace H Urine RBC 20-50 H Urine WBC 5-10 Ur Epithelial Cells Few Urine Crystals Negative Urine Bacteria Rare Urine Casts 3-5 Hyaline Urine Mucus Negative Ur Culture Indicated? Yes Urine Glucose Negative Phenytoin 10.1 Cancelled
[2021-08-12 14:44] VITALS: BP 117/81; PULSE 81; RESP 19; TEMP 37.2; O2SAT 95
[2021-08-12] MEDS: busPIRone 15 MG TAB PO (22:02)
[2021-08-12 22:12] VITALS: BP 118/74; PULSE 62; RESP 17; TEMP 37; O2SAT 95
[2021-08-13 06:53] LABS: HCT 34.6 % (36.0-46.0); HGB 11.7 g/dL (11.2-15.7); MCH 27.6 pg (27.0-33.0); MCHC 33.8 % (32.0-36.0); MCV 82 fL (80-95); MPV 9.2 fL (8.0-11.0); Platelet Count 284 10^3/uL (130-400); RBC 4.24 10^6/uL (3.93-5.22); RDW 14.1 % (11.7-14.6); RDW-SD 41.3 fL; WBC 4.63 10^3/uL (4.4-10.8)
[2021-08-13] MEDS: Amoxicillin 875/Clav. 125 TAB PO ×2 (07:20→19:59)
[2021-08-13] MEDS: clonazePAM 1 MG TAB PO ×2 (07:20→20:01)
[2021-08-13] MEDS: Dronabinol 2.5 MG CAP 5 MG PO ×2 (07:20→19:59)
[2021-08-13] MEDS: DULoxetine 30 MG CAP 60 MG PO ×2 (07:20→20:00)
[2021-08-13] MEDS: busPIRone 15 MG TAB 30 MG PO (07:21)
[2021-08-13] MEDS: Oxybutynin-CR 5 MG TABCR 10 MG PO (07:21)
[2021-08-13] MEDS: risperiDONE 1 MG TAB 2 MG PO ×2 (07:21→20:01)
[2021-08-13] MEDS: levETIRAcetam 500 MG TAB 1500 MG PO ×2 (07:21→20:00)
[2021-08-13] MEDS: Calcium 600mg/Vit D 200U TAB 1 TAB PO (07:21)
[2021-08-13] MEDS: Loratidine 10 MG TAB PO (07:22)
[2021-08-13] MEDS: Enoxaparin 40 MG/0.4 ML SYR SC (07:22)
[2021-08-13] MEDS: Normal Saline Flush 10 ML SYR IVP (07:22)
[2021-08-13] MEDS: Fluticasone NASAL SPRAY 16 GM BTL NS (07:23)
[2021-08-13 07:26] VITALS: BP 117/71; PULSE 75; RESP 15; TEMP 36.7; O2SAT 95
--- NOTE | 2021-08-13 07:52 | PDOC.CMPRO ---
- If Service Date Differs Date of service: 08/13/21 Time of Service: 07:52 Care Management Progress Note S/O: Sarah appeared to be sleeping soundly in bed when CM checked in on her this morning. Last night Sarah was getting out of bed frequently and required a sitter due to her high risk for falls. Sarah is covid positive and on isolation precautions. CM spoke with Maria L this morning and her goal is to keep Sarah comfortable mentally and physically. CM messaged Palliative. CM sent a referral to [facility] yesterday after Sraah's Palliative consult and they are reviewing. Jennifer will check with the team to see if Sarah would be able to discharge to their facility on Hospice. Sarah met with Palliative Care yesterday along with her sister Maria L (via phone) to discuss goals of care. Following the visit, CM sent a referral to the [facility], to see if discharging to their facility on hospice or conservative care would be an option. A: 51 year old female admitted to [facility] on 08/10/21 for Acute Debility, COVID-19, Brain tumor. P: Anticipate, Sarah will discharge back to the [facility] vs. the [facility], when medically able. She may discharge on Hospice. Transportation will be dependent on patients mobility at the time of discharge, she will likely transport via EMS. CM will continue to support Sarah and her discharge planning needs.
--- NOTE | 2021-08-13 08:52 | OT.INIE ---
Occupational Therapy Notes Inpatient Occupational Therapy Evaluation Date: 08/13/21 Referring Doctor:Jalen Medina MD OT Orders: Non urgent Precautions: Fall, standard, DNR/DNI PATIENT PROFILE/ADMITTING DIAGNOSIS: Pt is a 51 year old female who was admitted with the following dx of palliative care patient, altered mental status, sinusitis, falls, debility, COVID-19, excessive cerumen in ear canal, perioral dermatisis, physical deconditioning, dysarthria, hyponatremia, bacteria in urine, dysarthria, brain tumor, seizure, hx of colectomy, hx of mass excision. Past Medical History: All Active Problems?(Updated 08/10/21 @ 22:49 by Jalen Medina MD) Discharge planning issues (Acute) Falls (Acute) Debility (Acute) COVID-19 (Acute) 08/04/21/ppsExcessive cerumen in ear canal (Acute) Perioral dermatitis (Acute) Physical deconditioning (Acute) Dysarthria (Acute) Hyponatremia (Acute) Bacteria in urine (Acute) Dysarthria (Acute) Brain tumor (Acute) recurrent hemangiopericytoma; [facility] History of colectomy (Acute) History of excision of mass (Acute) Status post tonsillectomy (Acute) Persistent mood disorder (Chronic) Status post CVA (Acute 12/14/12) 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 RESECTED 12/10/12 and 12/14/12 perioperative infarct. 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 Colectomy (06/18/13) DR. Anupama PARSONSColonoscopy - MAC (05/24/13) Colonoscopy - MAC (06/19/17) Excision, Lesion (06/07/16) sacral lesion, fibroadipose tissueExcision, Lipoma (04/04/14) ABDOMINAL WALLTonsillectomy (~1997) Social History/Home Situation: Pt lives at the [facility], She was (I) with as much as she could. She has had a significant decline in her functional (I) and is not at her current level of function. Equipment owned/DME: DME needs met by [facility] SUBJECTIVE: Pt was sitting in bed. She has minimal verbal communication today. OBJECTIVE: General Observation: Pleasant but confused, decreased safety awareness and IV in (R) UE Mental Status: Alert to name Pain: Unable to assess ROM: RUE AROM WFL L UE AROM WFL STRENGTH: RUE 3/5 throughout LUE 3/5 throughout FUNCTIONAL MOBILITY/ADLS: Transfers rolling in bed max (A) BATHING sitting in bed with max (A) support to trunk Bathing UE max (A) Bathing LE max (A) DRESSING Dressing UE max (A) Dressing LE max (A) TOILETING nursing states that she utilizes a bed parson at this time due to a decline in her functional mobility EATING pt is able to bring her hand to mouth, she requires increased performance time for her eating. She has decreased strength to lift a cup to her mouth without spilling her lquids, OT recommeds a cup with handles, a scoop for her plate to assist with her (I) and bigger handled silverware due to her decreased strength. OT also recommends an SHOWROOM CONSULTANT consult. Pt was attempting to drink her coffee without a straw and coughed up her coffee just a small sip and then with straw she was able to tolerate this better. Nursing was in the room and was able to witness this. OT recommends that SHOWROOM CONSULTANT consult for recommendations for pts safety with her eating demands as well as her communication tasks. BALANCE: Static sitting sitting with max support to back Dynamic Sitting sitting with max support to back SPECIAL TESTS: Daily Activity Limitations Standardized Measure [facility] AM -PAC ?6 clicks? Daily Activity Inpatient Short Form: Raw score: 7 Standardized score: 20.13 CMS score: 92.44% INFORMED CONSENT/EDUCATION: Pt instructed in purpose of OT Consult and plan of care. ASSESSMENT: Patient is a 51-year-old female referred to occupational therapy services with diagnosis of palliative care patient, altered mental status, sinusitis, falls, debility, COVID-19, excessive cerumen in ear canal, perioral dermatisis, physical deconditioning, dysarthria, hyponatremia, bacteria in urine, dysarthria, brain tumor, seizure, hx of colectomy, hx of mass excision. Patient presents with clinical signs and symptoms consistent with dx, as demonstrated by the following impairment level findings/ functional limitations: Impairments in ADL/IADL and leisure activities, cognitive deficit, decline in functional mobility, decreased gross and fin emotor control of (B) UE, increased performance time for ADLS, decreased swallowing of liquids without coughing, decreased functional mobility required for ADLS, decreased safety awareness, decline in ability to make safe decisions, difficulty with word finding and processing, functional strength is limited, will require adaptive equipment for eating and SHOWROOM CONSULTANT consult. [facility] score 7 Patient is assessed as a high 68026 complexity based on the following: History: see above Examination: see functional limitations as noted above Presentation: evolving Decision Making: [facility] 7 GOALS Goals x1 week 1. Grooming- mod (A) with oral hygeine 2. Dressing- mod (A) dressing 3. Bathing- mod (A) 4. Toileting- on commode mod (A) 5. Eating- min (A) PLAN OF CARE/TREATMENT PLAN: 1x/day, 5 days/ week x 1week Initiate Occupational Therapy Services for bathing, dressing, grooming, toileting, eating, transfer training. DISCHARGE RECOMMENDATIONS SNF vs. LTC pt is not at her baseline level of function, she is at a significant decline in functional (I) and medical status at this time. OT recommends either SNF for increased time in her rehabilitation vs. LTC when medically cleared per MD. OT recommends SHOWROOM CONSULTANT consult as pt has difficulty swallowing liquids at this time. TREATMENT TIME/MINUTES/CODES 49098, [id number], 45 minutes (08:05) [facility]
[2021-08-13 13:48] VITALS: BP 112/77; PULSE 80; RESP 14; TEMP 37.1; O2SAT 95
[2021-08-13 15:02] VITALS: BP 114/74; PULSE 68; RESP 14; TEMP 37.3; O2SAT 96
[2021-08-13 16:09] VITALS: BP 123/86; PULSE 69; RESP 14; TEMP 36.5; O2SAT 97
[2021-08-13 19:06] VITALS: BP 126/94; PULSE 61; RESP 16; TEMP 37.1; O2SAT 97
[2021-08-13] MEDS: busPIRone 15 MG TAB PO (20:02)
--- NOTE | 2021-08-13 22:09 | W.PM.PROGNOT ---
Date of Service Date of service: 08/13/21 Time of Service: 15:00 Assessment and Plan Assessment and plan (1) COVID-19: Start date: 08/13/21 Start time: 15:00 Status: Acute Assessment and plan: 10 days since first positive covid test no oxygen requirements isolation Lung sound are diminished throughout (2) Brain tumor: Start date: 08/13/21 Start time: 15:00 Status: Acute Assessment and plan: Seen by pallitive care; awaiiting acceptance at the [facility]. (3) Debility: Start date: 08/13/21 Start time: 15:00 Status: Acute Assessment and plan: PT/OT Fell again today. She was reaching for something that fell on the floor. It was unwitnessed. Full assesmentl, no bruises, no deformities. She denies hitting her head. There was no LOC, She easily moves knees and hips bilaterally. 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 I spoke with LOUIS Lisa, she agrees no diagnostic imaging will be done - she does not want treatment if something is found. Low probablilty of ancelmo injury. (4) Sinusitis: Start date: 08/13/21 Start time: 15:00 Status: Acute Assessment and plan: Comtinue Augmentin (5) Discharge planning issues: Start date: 08/13/21 Start time: 15:00 Status: Acute Assessment and plan: discussed with Dr Rizo Subjective Subjective Patient reports: no new complaints, tolerating liquids well and voiding w/o difficulty Exam Narrative Exam Narrative: General: very pleasant, middle aged female, appears older than stated age. She is laying in bed, she is able to answer some questions appropriately, however she struggles with word-finding difficulty and seemed to become more confused as the visit progressed. She is able to follow commands. HEENT: +tremor, mucous membranes moist. Abrasion to nose, dry crusted area around left side of mouth, from corner of mouth to 1/[address] down her chin. Neck: supple, no JVD. Respiratory: respirations appear even and unlabored. No coughing noted during visit. Extremities: trace pitting edema to BLEs. Objective Last Vital Signs Temp 37.1 C 08/13/21 19:06 Pulse 61 08/13/21 19:06 Resp 16 08/13/21 19:06 BP 126/94 H 08/13/21 19:06 Pulse Ox 97 08/13/21 19:06 Laboratory Results - last 24 hr 08/13/21 06:15 WBC 4.63 RBC 4.24 Hgb 11.7 Hct 34.6 L MCV 82 D MCH 27.6 MCHC 33.8 D RDW 14.1 Plt Count 284 MPV 9.2 Reviewed Pertinent PMH: Yes
[2021-08-14] MEDS: Dronabinol 2.5 MG CAP 5 MG PO ×2 (09:38→21:46)
[2021-08-14] MEDS: busPIRone 15 MG TAB 30 MG PO (09:38)
[2021-08-14] MEDS: Amoxicillin 875/Clav. 125 TAB PO ×2 (09:38→21:45)
[2021-08-14] MEDS: Calcium 600mg/Vit D 200U TAB 1 TAB PO (09:38)
[2021-08-14] MEDS: DULoxetine 30 MG CAP 60 MG PO ×2 (09:39→21:45)
[2021-08-14] MEDS: clonazePAM 1 MG TAB PO ×2 (09:39→21:46)
[2021-08-14] MEDS: risperiDONE 1 MG TAB 2 MG PO ×2 (09:39→21:45)
[2021-08-14] MEDS: Oxybutynin-CR 5 MG TABCR 10 MG PO (09:39)
[2021-08-14] MEDS: Loratidine 10 MG TAB PO (09:39)
[2021-08-14] MEDS: levETIRAcetam 500 MG TAB 1500 MG PO ×2 (09:39→21:45)
[2021-08-14] MEDS: Normal Saline Flush 10 ML SYR IVP (09:40)
[2021-08-14] MEDS: Enoxaparin 40 MG/0.4 ML SYR SC (09:40)
[2021-08-14] MEDS: Fluticasone NASAL SPRAY 16 GM BTL NS (09:40)
--- NOTE | 2021-08-14 13:40 | W.PM.PROGNOT ---
Date of Service Date of service: 08/14/21 Time of Service: 12:40 Assessment and Plan Assessment and plan (1) COVID-19: Status: Acute Assessment and plan: no oxygen requirements continue isolation (2) Brain tumor: Status: Acute Assessment and plan: seen by Dr Bunn MRI reviewed and no acute changes from previous will continue with scheduled follow up with her neurologist outpatient as previously arranged. will check dilantin level (3) Debility: Status: Acute Assessment and plan: PT/OT anticipate swing level discharge if unable to safely reambulate (4) Sinusitis: Status: Acute Assessment and plan: may be contributing to debility will treat with augmentin (5) Discharge planning issues: Status: Acute Assessment and plan: pending PT recommendations case management following discussed with Dr Rizo Subjective Subjective Patient reports: no new complaints Exam Const General: cooperative, comfortable, frail appearing and ill appearing (older than stated age) chronically Nutritional Appearance: average body habitus Orientation: alert and awake Chest Chest: normal inspection of the chest Resp Auscultation: clear to auscultation bilaterally Cardio Rate: regular rate Rhythm: regular rhythm Skin Lesions: lesion noted (old abrasion to nose healing, no erythema) Neuro Speech: abnormal speech other (dysarthria, at baseline) Extrem General: full ROM and no pedal edema Objective Last Vital Signs Temp 37.1 C 08/13/21 19:06 Pulse 61 08/13/21 19:06 Resp 16 08/13/21 19:06 BP 126/94 H 08/13/21 19:06 Pulse Ox 97 08/13/21 19:06
[2021-08-14] MEDS: busPIRone 15 MG TAB PO (21:46)
[2021-08-15] MEDS: Enoxaparin 40 MG/0.4 ML SYR SC (09:05)
[2021-08-15] MEDS: Fluticasone NASAL SPRAY 16 GM BTL NS (09:05)
[2021-08-15] MEDS: levETIRAcetam 500 MG TAB 1500 MG PO ×2 (09:05→21:25)
[2021-08-15] MEDS: Loratidine 10 MG TAB PO (09:05)
[2021-08-15] MEDS: risperiDONE 1 MG TAB 2 MG PO ×2 (09:06→21:26)
[2021-08-15] MEDS: Oxybutynin-CR 5 MG TABCR 10 MG PO (09:06)
[2021-08-15] MEDS: Dronabinol 2.5 MG CAP 5 MG PO ×2 (09:06→21:26)
[2021-08-15] MEDS: clonazePAM 1 MG TAB PO ×2 (09:06→21:27)
[2021-08-15] MEDS: busPIRone 15 MG TAB 30 MG PO (09:06)
[2021-08-15] MEDS: Calcium 600mg/Vit D 200U TAB 1 TAB PO (09:07)
[2021-08-15] MEDS: Amoxicillin 875/Clav. 125 TAB PO ×2 (09:07→21:27)
[2021-08-15] MEDS: Normal Saline Flush 10 ML SYR IVP (09:07)
[2021-08-15] MEDS: DULoxetine 30 MG CAP 60 MG PO ×2 (09:07→21:24)
--- NOTE | 2021-08-15 13:32 | W.PM.PROGNOT ---
Date of Service Date of service: 08/15/21 Time of Service: 12:33 Assessment and Plan Assessment and plan (1) Brain tumor: Status: Acute Assessment and plan: will continue with scheduled follow up with her neurologist outpatient as previously arranged. Continue sitter for safety (2) Debility: Status: Acute Assessment and plan: PT/OT anticipate swing level discharge if unable to safely reambulate (3) Sinusitis: Status: Acute Assessment and plan: may be contributing to debility will treat with augmentin (4) Mouth sore: Status: Acute Assessment and plan: Crusty area on left of chin from drooling. Apply mupirocin to area, attempt to keep it dry (5) Discharge planning issues: Status: Acute Assessment and plan: pending PT recommendations case management following discussed with Dr Sarmiento Subjective Subjective Patient reports: no new complaints Exam Const General: cooperative, comfortable, frail appearing and ill appearing (older than stated age) chronically Nutritional Appearance: average body habitus Orientation: alert and awake Chest Chest: normal inspection of the chest Resp Auscultation: clear to auscultation bilaterally Cardio Rate: regular rate Rhythm: regular rhythm Skin Lesions: lesion noted (old abrasion to nose healing, no erythema) Neuro Speech: abnormal speech other (dysarthria, at baseline) Extrem General: full ROM and no pedal edema Objective Last Vital Signs Temp 37.1 C 08/13/21 19:06 Pulse 61 08/13/21 19:06 Resp 16 08/13/21 19:06 BP 126/94 H 08/13/21 19:06 Pulse Ox 97 08/13/21 19:06 Reviewed Pertinent PMH: Yes
[2021-08-15] MEDS: busPIRone 15 MG TAB PO (21:26)
[2021-08-16 06:20] LABS: Platelet Count 300 10^3/uL (130-400)
[2021-08-16] MEDS: Enoxaparin 40 MG/0.4 ML SYR SC (08:11)
[2021-08-16] MEDS: Normal Saline Flush 10 ML SYR IVP (08:11)
[2021-08-16] MEDS: levETIRAcetam 500 MG TAB 1500 MG PO (08:12)
[2021-08-16] MEDS: Fluticasone NASAL SPRAY 16 GM BTL NS (08:12)
[2021-08-16] MEDS: Calcium 600mg/Vit D 200U TAB 1 TAB PO (08:12)
[2021-08-16] MEDS: risperiDONE 1 MG TAB 2 MG PO (08:13)
[2021-08-16] MEDS: Amoxicillin 875/Clav. 125 TAB PO (08:13)
[2021-08-16] MEDS: Dronabinol 2.5 MG CAP 5 MG PO ×2 (08:13→15:16)
[2021-08-16] MEDS: busPIRone 15 MG TAB 30 MG PO (08:13)
[2021-08-16] MEDS: Oxybutynin-CR 5 MG TABCR 10 MG PO (08:13)
[2021-08-16] MEDS: DULoxetine 30 MG CAP 60 MG PO (08:13)
[2021-08-16] MEDS: clonazePAM 1 MG TAB PO (08:14)
[2021-08-16] MEDS: Loratidine 10 MG TAB PO (08:14)
--- NOTE | 2021-08-16 08:58 | CMPROGNOTE_ITS ---
- If Service Date Differs Date of service: 08/16/21 Time of Service: 08:58 Care Management Progress Note S/O: Palliative vs. Hospice. The [facility] is closed to admissions until at least . A: 51 year old female admitted to [facility] on 08/10/21 for Acute Debility, COVID-19, Brain tumor. P: Anticipate, Sarah will discharge back to the [facility] vs. the [facility], when medically able. She may discharge on Hospice. Transportation will be dependent on patients mobility at the time of discharge, she will likely transport via EMS. will continue to support Sarah and her discharge planning needs.
--- NOTE | 2021-08-16 10:57 | W.PM.PROGNOT ---
Date of Service Date of service: 08/15/21 Time of Service: 11:00 Subjective Subjective Patient reports: no new complaints Exam Const General: cooperative, comfortable, frail appearing and ill appearing (older than stated age) chronically Nutritional Appearance: average body habitus Orientation: alert and awake Chest Chest: normal inspection of the chest Resp Auscultation: clear to auscultation bilaterally Cardio Rate: regular rate Rhythm: regular rhythm Skin Lesions: lesion noted (old abrasion to nose healing, no erythema) Neuro Speech: abnormal speech other (dysarthria, at baseline) Extrem General: full ROM and no pedal edema Objective Last Vital Signs Temp 37.1 C 08/13/21 19:06 Pulse 61 08/13/21 19:06 Resp 16 08/13/21 19:06 BP 126/94 H 08/13/21 19:06 Pulse Ox 97 08/13/21 19:06 Laboratory Results - last 24 hr 08/16/21 05:26 Plt Count 300
--- NOTE | 2021-08-16 15:58 | DSE_ITS ---
Date of service: 08/16/21 Time of Service: 14:58 DS: Diagnosis Discharge Diagnosis (1) Brain tumor: Status: Acute (2) Debility: Status: Acute (3) Sinusitis: Status: Acute (4) Mouth sore: Status: Acute Discharge Plan Disposition Patient Disposition: [facility] SWING BED LEVEL 1 Condition: Stable Discharge Details Reason For Visit: Worsening Weakness and Ataxia, Falls Admit Date/Time: 08/10/21 22:25 Admit Provider: Jalen Medina Attending Provider: Jalen Medina Primary Care Provider: Eduardo Willis Hospital Course Hospital Course: This is a 51 year old female with complex medical history including terminal brain tumor followed by [facility] who presented to the ED from her assisted living facility with frequent falls, ambulatory dysfunction and declining mental status. Her work up shows no acute process to account for these changes that are due to her progression and decline of disease. Of not she tested positive for covid august 03 but has no respiratory symptoms. she was admitted to med/surg and consults placed for neurology and palliative care. No further treatment is recommended and her sister who is guardian and healthcare team agree with transition to comfort focused care. She is unable to safely return to her level of care facility and will be discharged here to snf with plan to discharge to another facility. she has been agreeable to working with physical therapy. case management is following. discussed with Dr Beto Freeman and New Rx's Prescriptions: No Action buspirone 15 mg tablet 15 - 30 mg PO BID Qty: 90 11RF Rx Instructions: 30 mg in AM; 15 mg In PM risperidone 2 mg tablet 2 mg PO BID oxybutynin chloride [Ditropan XL] 10 mg tablet extended release 24hr 10 mg PO DAILY clonazepam 0.25 mg tablet,disintegrating 0.25 mg PO DAILY Label Comments: in the morning levetiracetam 750 mg tablet 1,500 mg PO BID Qty: 120 5RF Rx Instructions: per [facility] neuro phenytoin sodium extended 100 mg capsule 100 mg PO BID Qty: 60 11RF duloxetine 60 mg capsule,delayed release(DR/EC) 60 mg PO BID Qty: 180 3RF loratadine 10 mg tablet 10 mg PO DAILY Qty: 90 3RF fluticasone propionate 50 mcg/actuation spray,suspension 2 spray intranasal DAILY Qty: 9.9 5RF Rx Instructions: administer into each nostril Refresh Lacri-Lube 56.8-42.5 % ointment 1 applic ophthalmic (eye) 4-6XD PRN (Reason: dry eyes) Qty: 7 2RF hydrocortisone [Anti-Itch (HC)] 1 % cream 1 applic topical BID-QID PRN (Reason: skin irritation) Qty: 28.35 1RF Rx Instructions: to perioral rash calcium carbonate-vitamin D3 500 mg-5 mcg (200 unit) tablet 1 tab PO DAILY Qty: 90 3RF Ocusoft Lid Scrub Original Foam 1 applic topical DAILY Qty: 50 5RF bebtelovimab 175 mg/2 mL (87.5 mg/mL) solution 175 mg IV ONCE Qty: 2 0RF Rx Instructions: as a single dose Discharge Instructions Activity:: Activity as Tolerated Equipment/Supplies:: No Equipment Needed Diet:: As Tolerated Discharge Orders Discharge Orders: Discharge Order (Routine); Ordered 08/16/21 Ordered By: Gabriella Chapman Discharge Data Discharge Date/Time-TO BE ENTERED AT DEPARTURE: 08/16/21 16:25 DS: Summary Time Spent with Patient providing and/or coordinating discharge services: Greater than 30 minutes Status at Discharge Functional status at discharge: wheelchair bound Overall status at discharge: patient is not back to baseline Mental Status: other Speech and Movement: speech and movement normal Mood: congruent mood and other Affect: normal affect Exam Const General: cooperative, comfortable, frail appearing and ill appearing (older than stated age) chronically Nutritional Appearance: average body habitus Orientation: alert and awake Chest Chest: normal inspection of the chest Resp Auscultation: clear to auscultation bilaterally Cardio Rate: regular rate Rhythm: regular rhythm Skin Lesions: lesion noted (old abrasion to nose healing, no erythema) Neuro Speech: abnormal speech other (dysarthria, at baseline) Extrem General: full ROM and no pedal edema Psych Mental Status: other Speech and Movement: speech and movement normal Mood: congruent mood and other Affect: normal affect DS: Data Vitals/I&O Vitals and I&O: Vital Signs Temperature 37.1 C 08/13/21 19:06 Temperature Source Temporal Artery Scan 08/13/21 19:06 Pulse 61 08/13/21 19:06 Pulse Rhythm Regular 08/13/21 07:45 Respiratory Rate 16 08/13/21 19:06 Respiratory Effort Non-Labored 08/13/21 07:45 Respiratory Depth Normal 08/13/21 07:45 Respiratory Pattern Normal 08/13/21 07:45 Blood Pressure 126/94 H 08/13/21 19:06 Blood Pressure Position Supine 08/10/21 19:15 Pulse Oximetry 97 08/13/21 19:06 Oxygen Delivery Method Room Air 08/13/21 19:06 Oxygen Flow Rate 0 08/13/21 19:06 Pain Level 0 08/13/21 16:09 Intake & Output 08/15/21 08/16/21 08/16/21 23:59 11:59 23:59 Intake Total 240 / 480 120 / 120 Output Total 200 / 200 Balance 240 / 480 -80 / -80 Intake: Oral 240 / 480 120 / 120 Output: Urine 200 / 200 Other: Urine Color Yellow Yellow Urine Appearance Clear Clear Urine Odor Normal Comment pt dry at this time diaper change dry at this time Voiding Methods Bedside Commode Diaper Diaper Incontinent Incontinent Data Completed and Pending Labs on day of discharge: Labs from last 24 hours 08/16/21 05:26 Plt Count 300 PFSH All Active Problems (Updated 08/15/21 @ 13:37 by Shanice Castano NP) Palliative care patient (Acute) Altered mental status (Acute) Mouth sore (Acute) Sinusitis (Acute) Discharge planning issues (Acute) Falls (Acute) Debility (Acute) COVID-19 (Acute) 08/04/21/pps Excessive cerumen in ear canal (Acute) Perioral dermatitis (Acute) Physical deconditioning (Acute) Dysarthria (Acute) Hyponatremia (Acute) Bacteria in urine (Acute) Dysarthria (Acute) Brain tumor (Acute) recurrent hemangiopericytoma; 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 RESECTED 12/10/12 and 12/14/12 perioperative infarct. 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 Anupama PARSONS Colonoscopy - MAC (05/24/13) Colonoscopy - MAC (06/19/17) Excision, Lesion (06/07/16) sacral lesion, fibroadipose tissue Excision, Lipoma (04/04/14) ABDOMINAL WALL Tonsillectomy (~1997) Family History Mother Diabetes Heart disease Hyperlipidemia Father Diabetes Essential hypertension Heart disease Hyperlipidemia Sister Diabetes Depression Brother , AGE 32 Stroke Essential hypertension Hyperlipidemia Maternal Grandfather Diabetes Stroke Paternal Grandfather No problems noted. Maternal Grandmother No problems noted. Paternal Grandmother Alzheimer disease Depression Daughter Essential hypertension Depression Social History Smoking/Tobacco Use Status: Former Tobacco Use Tobacco: How many years used: 30 Quit status: has quit before Smoking risk assessment performed?: Yes Alcohol Intake: current Alcohol Intake frequency: a few times a month Alcohol type: beer, wine and hard liquor Drug use: Never Substance use type: does not use Caregiver/Support person: No Household members: none Housing: other Details: [facility] current occupation: disable Sexually active: No Do you think of yourself as: straight/heterosexual Current gender identity: female Duration: 60-90 minutes/day Frequency: 5-6 times per week Opal/Scientology: No preference Special opla needs: No Seatbelt use: always Do you feel safe at home: Yes (unk) Do you feel safe in your relationship?: Yes
--- NOTE | 2021-08-16 16:21 | CMDISCH_ITS ---
- If Service Date Differs Date of service: 08/16/21 Time of Service: 16:21 LACE Index Scoring Tool - Questions: Length of Stay (in days): 4 - 6 Acuity (Admit via E.D.?): Yes Comorbidities: Cerebrovascular Disease E.D. Visits: 2 - Answers: Total Score: 10 Risk of Readmission: High Risk Care Management Discharge Reason for Hospitalization: Acute Debility, COVID-19, Brain tumor. Discharge Plan: Discharge to [facility] for additional PT, while waiting for SNF placement. Anticipate, Sarah will discharge to the [facility] pending acceptance. Sarah will be followed by Palliative Care for ongoing discussion about goals of care. CM will continue to support patient during her [facility] admission. Patient/Family Education Needs: Review plan for [facility], ask me three.
--- NOTE | 2021-08-24 19:00 | INDS_ITS ---
Date of service: 08/24/21 PT Notes Visit Reasons: Worsening Weakness and Ataxia, Falls Physical Therapy Inpatient Discharge Summary Date: 08/24/2021 Dates of Service:? 08/17/2021 through 08/24/2021 This is a clinical summary of care provided for the duration of dates listed above. No charge was made in the completion of this documentation. Referring Doctor: Gabriella Chapman NP PT Orders: PT CONSULT: Eval/treat Precautions: Fall. Standard. Activity as tolerated. Patient Profile/Admitting Diagnosis:? Sarah is a 51-year-old female who presented to the ED with repeated falls and worsening mental status.? Patient is diagnosed with debility, brain tumor, COVID-19 infection, history of CVA, chronic ataxia, and seizure.? Another referral was made to continue working on bed mobility and transfers in anticipation of discharge to the [facility] when accepted.? Subjective: NT. See most recent LICENSING COURT MAGISTRATE notes. Objective: General Observation: NT. See most recent LICENSING [facility] MAGISTRATE notes. Mental Status: NT. See most recent LICENSING COURT MAGISTRATE notes. Pain: NT. See most recent LICENSING COURT MAGISTRATE notes. ROM: Right Upper Extremity: ? Shoulder Flexion WFL. Shoulder abduction WFL. Elbow flexion WFL. Wrist flexion WFL. Functional opening and closing of hand WFL. Left Upper Extremity:? Shoulder Flexion WFL. Shoulder abduction WFL. Elbow flexion WFL. Wrist flexion WFL. Functional opening and closing of hand WFL. Right Lower Extremity: Hip flexion allows only 50% of available range. Hip abduction only 50% of available range. Knee flexion only 50% of available range. Ankle dorsiflexion only 50% of available range. Ankle plantarflexion only 50% of available range. Left Lower Extremity: Hip flexion allows only 50% of available range. Hip abduction only 50% of available range. Knee flexion only 50% of available range. Ankle dorsiflexion only 50% of available range. Ankle plantarflexion only 50% of available range. Strength: Right Upper Extremity: Shoulder flexors 4/5. Shoulder abductors 4/5. Elbow flexors 5/5. Elbow extensors 5/5. Editor [employer] strong. Left Upper Extremity: Shoulder flexors 4/5. Shoulder abductors 5/5. Elbow flexors 5/5. Elbow extensors 5/5. Editor [employer] strong. Right Lower Extremity: Hip flexors 3-/5. Hip abductors 3-/5. Knee flexors 3-/5. Knee extensors 3-/5. Ankle dorsiflexors 3-/5. Ankle plantarflexors 3-/5. Left Lower Extremity: Hip flexors 3-/5. Hip abductors 3-/5. Knee flexors 3-/5. Knee extensors 3-/5. Ankle dorsiflexors 3-/5. Ankle plantarflexors 3-/5. Bed Mobility/Transfers: Deferred THERA EX: 1.? B shoulder flexion/extension x 10 2.? B shoulder horizontal abduction and adduction x 10 2.? Alternate [id number] x 10 3.? Bridging x 10 Gait: Deferred ASSESSMENT: Speech intelligibility seems to have worsened from the last time she was evaluated by this PT on 08/10/2021.? Recommend use of STEDY lift? or assist of 2 for transfers.? Continue PT at [facility] to continue to assess how far mobility progression can go.? No tremors seen during bed level exercises. ? Strength in UE and LE symmetric.? Prognosis for achieving goals below is poor to fair due to co-morbid conditions, COVID-19 infection,? and deteriorating cognition. ? Patient presents with clinical signs and symptoms consistent with current/admitting diagnoses that have resulted to mobility limitations, gait instability, generalized weakness, and overall ADL decline as demonstrated by the following impairment level findings: 1.? Decreased strength to B hip and knee major muscle groups 2.? Impaired sitting/standing balance 3.? Impaired activity tolerance 4.? Athetoid movements in trunk, B UE/LE 5.? Ataxic gait Impairments are contributing to the following functional limitations: 1.? Decline in bed mobility skills 2.? Decline in transfer skills 3.? Difficulty with ambulation without assistive device and physical assistance 4.? Increased completion time for mobility ADL performance 5.? Increased risk for falls 6.? Difficulty with managing steps alone safely 7.? Inability to thrive alone at home Goals: Goals X1 week 1. Supine-Sit contact guard assist NOT MET, CONTINUE at [facility] 2. Sit-Supine contact guard assist NOT MET, CONTINUE at [facility] 3. Sit-Stand contact guard assist NOT MET, CONTINUE at [facility] 4. Stand-Sit contact-guard assist of 2 with FWW NOT MET, CONTINUE at SNF 5. Stand-Sit contact-guard assist of 2 with FWW NOT MET, CONTINUE at SNF 6. Chair-Bed Stand-Sit contact-guard assist of 2 with FWW NOT MET, CONTINUE at SNF 7. Fair static and dynamic standing balance/tolerance NOT MET, CONTINUE at SNF ? DISCHARGE RECOMMENDATIONS: []? Home with no services [] [] ?Home with services [specify] [] ?Home with outpatient PT [] [X] ? SNF for continued rehabilitation.? Patient will benefit from assisted facility placement for continued skilled physical therapy services in order to progress mobility level, strength, and balance. [X] ? [facility].? May be potentially a LTC resident due to admitting diagnoses and co-morbidities [] ? SNF versus LTC based on ability to participate and progress [] TREATMENT CODE/TIME: MS Thank you for the opportunity to participate in the care of this patient. Rosemary Allen PT, DPT, CLT [facility] [place], [place]
== END 2021-08-16 16:25 | disposition swing bed (61) | DRG 178 ==
LOC: ER 08-11 06:38 → MS 08-11 08:18
PROVIDERS: Family Medicine; Internal Medicine; Nurse Practitioner Acute Care; Admitting Provider Family Medicine; Emergency Provider Emergency Medicine; PCP Family Medicine; Visit Provider Family Medicine
DX: C71.6 Malignant neoplasm of cerebellum (principal); U07.1 COVID-19; I69.354 Hemiplegia and hemiparesis following cerebral infarction affecting left non-dominant side; F34.9 Persistent mood [affective] disorder, unspecified; R53.81 Other malaise; I69.393 Ataxia following cerebral infarction; W19.XXXA Unspecified fall, initial encounter; R29.6 Repeated falls; Z85.038 Personal history of other malignant neoplasm of large intestine; F32.A Depression, unspecified; Z98.0 Intestinal bypass and anastomosis status; R47.1 Dysarthria and anarthria; H53.2 Diplopia; Z87.891 Personal history of nicotine dependence; R56.9 Unspecified convulsions; Z92.3 Personal history of irradiation; R53.1 Weakness; J01.40 Acute pansinusitis, unspecified; Z99.3 Dependence on wheelchair; Z66 Do not resuscitate; G96.198 Other disorders of meninges, not elsewhere classified
CPT/HCPCS: 36415; 70553; 80053; 80307; 85027; 87635; 97167; 97535; 99223; 99285; J1650; 70450; 71045; 80185; 81003; 81015; 84443; 85025; 85049; 87086; 99222; 99231; 99232; 99233; 99239

== ENCOUNTER 2021-08-16 16:01 | Inpatient (IN) | payer MEDICARE, SELFPAY ==
--- NOTE | 2021-08-16 15:39 | CM.SBPSYCH ---
- If Service Date Differs Date of service: 08/16/21 Time of Service: 15:44 SB Psychosocial/Act.Assessment - Hospital Admission Admission Date: 08/10/21 Admission From:: Admit from ER. Diagnosis:: Acute Debility, COVID-19, Brain tumor. - Swing Bed Admission Swing Bed Admit Date:: 08/16/21 Swing Bed Level of Care: Level 1/SNF - Social Supports PREVIOUS FUNCTIONAL STATUS/SOCIAL/FAMILY SUPPORTS:: Sarah resides at the [facility]. She has chronic debility d/t previous brain cancer with resection and intraoperative CVA. 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 Her sister Maria L Staley and her mother Nevaeh both live nearby and are very supportive of her needs. Maria L Staley is Sarah's HCA and her Healthcare Power of Funeral Service Manager. - Prior to Admission Living Arrangements/Environment Prior to Admission:: Sarah was a resident of the [facility] prior to being admitted to [facility]. Niyahs health has declined over the last several month's raising concerns for increased level of care. 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 - Work History Employment Status:: Disabled - : No 's Spouse: No - Benefits Financial: Medicare, Medicaid - Advance Directives for Healthcare Advance Directives for Healthcare: Advance Directives Advance Directive Agent: Maria L Staley, is HCA and DPOA - Present Functional Status Physical Abilities:: Significant decline in her Physical abilities Cognitive:: Sarah has increased confusion, but is able to answer some questions appropriately. Sarah struggles with word-finding difficulty. Communication:: Difficult Behavior:: Pleasant - Medical History PAST MEDICAL HISTORY/PAST SURGICAL HISTORY:: All Active Problems (Updated 08/10/21 @ 22:49 by Jalen Medina MD). Discharge planning issues (Acute). Falls (Acute). Debility (Acute). COVID-19 (Acute). 08/04/21/pps. Excessive cerumen in ear canal (Acute). Perioral dermatitis (Acute). Physical deconditioning (Acute). Dysarthria (Acute). Hyponatremia (Acute). Bacteria in urine (Acute). Dysarthria (Acute). Brain tumor (Acute). recurrent hemangiopericytoma;. resected 04/2019 [facility]. Seizure (Acute). History of colectomy (Acute). History of excision of mass (Acute). Status post tonsillectomy (Acute). Persistent mood disorder (Chronic). Status post CVA (Acute 12/14/12). Hemangiopericytoma (Acute 12/21/12). 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 RESECTED 12/10/12 and 12/14/12 perioperative infarct. RT completed 02/2013. ataxia,dysarthria,diplopia. Carcinoma of colon (Acute 06/03/13). S/P sigmoid colectomy 06/07. GER III with severe dysplasia (Acute 12/15/16). 2002, LEEP. 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 Smoker (Acute). Internal hemorrhoids (Acute 06/19/17). Depressive disorder (Acute). Colon cancer (Acute). Primary, not related to brain tumor. Personal history of brain tumor, malignant (Acute). Removal of tumor 2012. 05/2019 recurrent tumor of brain ([place] radiation)-[facility]. Medical History . 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 Carcinoma of colon. GER III with severe dysplasia. Hemangiopericytoma. Status post CVA. Tobacco dependence. Surgical History . Colectomy (06/18/13). DR. Anupama PARSONS. Colonoscopy - MAC (05/24/13). Colonoscopy - MAC (06/19/17). Excision, Lesion (06/07/16). sacral lesion, fibroadipose tissue. Excision, Lipoma (04/04/14). ABDOMINAL WALL. Tonsillectomy (~1997) General Health:: Sarah has a significant medical hx which includes hemangiopericytoma brain tumor s/p radiation and resection, intraoperative stroke of cerebellum, seizures and recurrent brain tumors, dysarthria, chronic ataxia, Colon CA, depression/anxiety, previous tobacco user.?She is followed by [facility] neuro-oncologist Dr. Gricelda Hewitt. Sarah has a significant hx of falling due to her increased weakness and confusion. - Admission Data Reason for Swing Bed Admission:: Sarah will transition to SW for additional PT while waiting to be accepted at a SNF. Discharge Plan:: Anticipate, Sarah will discharge to the [facility] pending acceptance. Sarah will be followed by Palliative Care. [facility] Agent: KATHARINE Date Assessment was completed:: 08/16/21
--- NOTE | 2021-08-16 15:39 | CM.SWINGPC ---
- If Service Date Differs Date of service: 08/16/21 Time of Service: 15:39 Swingbed Plan of Care Plan of care: SWING BED PROGRAM ACTIVITIES/DISCHARGE PLAN OF CARE ACTIVITIES PLAN Date: 08/16/21 Identified Need: Individualized life enrichment activities to support patient during her hospital admission. Intervention/Plan: TV with remote, Music Tablet, White Board for written communication (if able), room Phone, activity blanket etc. Initials DL DISCHARGE PLAN Date: 08/16/21 Identified Need: Discharge to rehab facility, which can provide appropriate level care. Intervention/Plan: Anticipate Sarah will discharge to SNF for continued rehab. Palliative care will follow Sarah as an outpatient to discuss goals of care. Initials DL
--- NOTE | 2021-08-16 16:09 | W.PM.HP.N ---
Date of service: 08/16/21 Time of Service: 15:09 Assessment and Plan Assessment and plan (1) Brain tumor: Status: Acute Assessment and plan: terminal. admitted to swing bed for comfort focused care (2) Debility: Status: Acute Assessment and plan: PT/OT as tolerated anticipate swing level discharge if unable to safely reambulate (3) Sinusitis: Status: Acute Assessment and plan: may be contributing to debility will treat with augmentin for 14 days (4) Mouth sore: Status: Acute Assessment and plan: Crusty area on left of chin from drooling. Apply mupirocin to area, attempt to keep it dry (5) Discharge planning issues: Status: Acute Assessment and plan: pending PT recommendations case management following discussed with DR Pérez History of Present Illness History of Present Illness Chief Complaint: debility Narrative: This is a 51 year old female with complex medical history including terminal brain tumor followed by [facility] who presented to the ED from her assisted living facility with frequent falls, ambulatory dysfunction and declining mental status.? Her work up shows no acute process to account for these changes that are due to her progression and decline of disease.? Of not she tested positive for covid august 03 but has no respiratory symptoms.? she was admitted to med/surg and consults placed for neurology and palliative care.? No further treatment is recommended and her sister who is guardian and healthcare team agree with transition to comfort focused care.? She is unable to safely return to her level of care facility and will be admitted here to [facility] with plan to discharge to another facility.? she has been agreeable to working with physical therapy.? case management is following.? 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 RESECTED 12/10/12 and 12/14/12 perioperative infarct. 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 Anupama PARSONS Colonoscopy - MAC (05/24/13) Colonoscopy - MAC (06/19/17) Excision, Lesion (06/07/16) sacral lesion, fibroadipose tissue Excision, Lipoma (04/04/14) ABDOMINAL WALL Tonsillectomy (~1997) Family History Mother Diabetes Heart disease Hyperlipidemia Father Diabetes Essential hypertension Heart disease Hyperlipidemia Sister Diabetes Depression Brother , AGE 32 Stroke Essential hypertension Hyperlipidemia Maternal Grandfather Diabetes Stroke Paternal Grandfather No problems noted. Maternal Grandmother No problems noted. Paternal Grandmother Alzheimer disease Depression Daughter Essential hypertension Depression Social History Smoking/Tobacco Use Status: Former Tobacco Use Tobacco: How many years used: 30 Quit status: has quit before Smoking risk assessment performed?: Yes Alcohol Intake: current Alcohol Intake frequency: a few times a month Alcohol type: beer, wine and hard liquor Drug use: Never Substance use type: does not use Caregiver/Support person: No Household members: none Housing: other Details: [facility] current occupation: disable Sexually active: No Do you think of yourself as: straight/heterosexual Current gender identity: female Duration: 60-90 minutes/day Frequency: 5-6 times per week Opal/Sabianism: No preference Special opal needs: No Seatbelt use: always Do you feel safe at home: Yes (unk) Do you feel safe in your relationship?: Yes Meds Allergies and Home Medications Allergies Allergy/AdvReac Type Severity Reaction Status Date / Time oxycodone Allergy Severe Verified 06/09/21 13:43 Home Medications Medication Instructions Recorded Confirmed Type levetiracetam 750 mg tablet 1,500 mg PO BID #120 tabs 10/31/19 08/16/21 Rx phenytoin sodium extended 100 mg 100 mg PO BID #60 caps 07/09/20 08/16/21 Rx capsule duloxetine 60 mg capsule,delayed 60 mg PO BID #180 caps 10/19/20 08/16/21 Rx release clonazepam 0.25 mg disintegrating 0.25 mg PO DAILY 02/23/21 08/16/21 History tablet oxybutynin chloride 10 mg 10 mg PO DAILY 02/23/21 08/16/21 History tablet,extended release 24 hr (Ditropan XL) risperidone 2 mg tablet 2 mg PO BID 02/23/21 08/16/21 History fluticasone propionate 50 2 spray intranasal DAILY #9.9 grams 03/08/21 08/16/21 Rx mcg/actuation nasal spray,suspension loratadine 10 mg tablet 10 mg PO DAILY #90 tabs 03/08/21 08/16/21 Rx white petrolatum-mineral oil 56.8 1 applic ophthalmic (eye) 4-6XD 03/09/21 08/16/21 Rx %-42.5 % eye ointment (Refresh PRN dry eyes #7 grams Lacri-Lube) hydrocortisone 1 % topical cream 1 applic topical BID-QID PRN skin 04/12/21 08/16/21 Rx (Anti-Itch (hydrocortisone)) irritation #28.35 grams calcium carbonate 500 mg-vitamin 1 tab PO DAILY #90 tabs 04/15/21 08/16/21 Rx D3 5 mcg (200 unit) tablet buspirone 15 mg tablet 15 - 30 mg PO BID #90 tab-caps 04/20/21 08/16/21 Rx eyelid cleanser combination 7 1 applic topical DAILY #50 mL 06/16/21 08/16/21 Rx (Ocusoft Lid Scrub Original topical foam) bebtelovimab 175 mg/2 mL (87.5 175 mg (2 mL) IV ONCE #2 mL 08/05/21 08/16/21 Rx mg/mL) intravenous solution (EUA) Exam Const General: cooperative, comfortable, frail appearing and ill appearing (older than stated age) chronically Nutritional Appearance: average body habitus Orientation: alert and awake Chest Chest: normal inspection of the chest Resp Auscultation: clear to auscultation bilaterally Cardio Rate: regular rate Rhythm: regular rhythm Skin Lesions: lesion noted (old abrasion to nose healing, no erythema) Neuro Speech: abnormal speech other (dysarthria, at baseline) Extrem General: full ROM and no pedal edema Psych Mental Status: other Speech and Movement: speech and movement normal Mood: congruent mood and other Affect: normal affect
[2021-08-16 17:39] VITALS: BP 126/94; PULSE 61; RESP 18; TEMP 37.1; O2SAT 97
[2021-08-16] MEDS: Scopolamine 1 MG/3 DAYS PATCH TD (17:58)
[2021-08-16 20:01] VITALS: BP 116/80; PULSE 85; RESP 16; TEMP 36.6; O2SAT 95
[2021-08-16] MEDS: levETIRAcetam 500 MG TAB 1500 MG PO (20:19)
[2021-08-16] MEDS: DULoxetine 30 MG CAP 60 MG PO (20:19)
[2021-08-16] MEDS: risperiDONE 1 MG TAB 2 MG PO (20:20)
[2021-08-16] MEDS: Amoxicillin 875/Clav. 125 TAB PO (20:20)
[2021-08-16] MEDS: clonazePAM 1 MG TAB PO (20:20)
[2021-08-16] MEDS: Normal Saline Flush 10 ML SYR IVP (20:21)
[2021-08-16] MEDS: busPIRone 15 MG TAB PO (21:07)
[2021-08-17] MEDS: levETIRAcetam 500 MG TAB 1500 MG PO ×2 (10:23→19:31)
[2021-08-17] MEDS: risperiDONE 1 MG TAB 2 MG PO ×2 (10:23→19:31)
[2021-08-17] MEDS: DULoxetine 30 MG CAP 60 MG PO ×2 (10:24→19:31)
[2021-08-17] MEDS: Amoxicillin 875/Clav. 125 TAB PO ×2 (10:24→19:31)
[2021-08-17] MEDS: Oxybutynin-CR 5 MG TABCR 10 MG PO (10:24)
[2021-08-17] MEDS: Dronabinol 2.5 MG CAP 5 MG PO ×2 (10:24→16:21)
[2021-08-17] MEDS: clonazePAM 1 MG TAB PO ×2 (10:24→19:32)
[2021-08-17] MEDS: busPIRone 15 MG TAB 30 MG PO (10:24)
[2021-08-17] MEDS: Loratidine 10 MG TAB PO (10:24)
[2021-08-17] MEDS: Fluticasone NASAL SPRAY 16 GM BTL NS (10:25)
--- NOTE | 2021-08-17 10:31 | PT.INIE ---
Date of service: 08/17/21 Time of Service: 10:31 PT Notes Visit Reasons: brain tumor, falls Physical Therapy Inpatient Initial Evaluation Date: 08/17/2021 Referring Doctor: Gabriella Chapman NP PT Orders: PT CONSULT: Eval/treat Precautions: Fall. Standard. Activity as tolerated. Patient Profile/Admitting Diagnosis:? Sarah is a 51-year-old female who presented to the ED with repeated falls and worsening mental status.? Patient is diagnosed with debility, brain tumor, COVID-19 infection, history of CVA, chronic ataxia, and seizure. Another referral was made to continue working on bed mobility and transfers in anticipation of discharge to the [facility] when accepted. PMHX: All Active Problems?(Updated 08/10/21 @ 22:49 by Jalen Medina MD) Discharge planning issues (Acute) Falls (Acute) Debility (Acute) COVID-19 (Acute) 08/04/21/ Excessive cerumen in ear canal (Acute) Perioral dermatitis (Acute) Physical deconditioning (Acute) Dysarthria (Acute) Hyponatremia (Acute) Bacteria in urine (Acute) Dysarthria (Acute) Brain tumor (Acute) recurrent hemangiopericytoma; [place] [facility] [place] (Acute) History of colectomy (Acute) History of excision of mass (Acute) Status post tonsillectomy (Acute) Persistent mood disorder (Chronic) Status post CVA (Acute 12/14/12) 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 RESECTED 12/10/12 and 12/14/12 perioperative infarct. 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 Personal history of brain tumor, malignant (Acute) Removal of tumor 201205/2019 recurrent tumor of brain ([place] radiation)-[facility] Medical History? 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 Colectomy (06/18/13) DR. Anupama PARSONS Colonoscopy - MAC (05/24/13) Colonoscopy - MAC (06/19/17) Excision, Lesion (06/07/16) sacral lesion, fibroadipose tissue Excision, Lipoma (04/04/14) ABDOMINAL WALL Tonsillectomy (~1997) Social History/Home Situation: Used to be a [facility] resident.? States that she used rollator for short in-room distances to walk but then uses a wheelchair for long distances. Equipment Owned/DME: Rollator, wheelchair Subjective: BRANDIN Mitchell present in room when patient was asked if she is is willing to continue to work with PT under comfort measures level of care. Patient did not have a straight answer but knowing that DPOA is agreeable to trying out PT again and with patient amenable to sitting at edge of bed for this assessment, patient was assisted to sitting at edge of bed. Objective: General Observation: Supine in bed.? Orofacial dyskinesia seen.? Athetoid movements of trunk and appendages seen with movement.? Abrasion on nose and mouth from recent fall. Patient Nurse Saira present in room when PT arrived giving meds to patient and managing abrasion on L side of mouth from sialorrhea. Mental Status: Alert. Perseverates on some thoughts which impair ability to respond to a different topic needing repetition/redirection from PT. Speech dysarthic. Pain: Denies ROM: Right Upper Extremity: ? Shoulder Flexion WFL. Shoulder abduction WFL. Elbow flexion WFL. Wrist flexion WFL. Functional opening and closing of hand WFL. Left Upper Extremity:? Shoulder Flexion WFL. Shoulder abduction WFL. Elbow flexion WFL. Wrist flexion WFL. Functional opening and closing of hand WFL. Right Lower Extremity: Hip flexion WFL. Hip abduction WFL. Knee flexion WFL. Ankle dorsiflexion WFL. Ankle plantarflexion WFL. Left Lower Extremity: Hip flexion WFL. Hip abduction WFL. Knee flexion WFL. Ankle dorsiflexion WFL. Ankle plantarflexion WFL. Strength: Right Upper Extremity: Shoulder flexors 4/5. Shoulder abductors 4/5. Elbow flexors 5/5. Elbow extensors 5/5. Body And Fender Mechanic Apprentice strong. Left Upper Extremity: Shoulder flexors 4/5. Shoulder abductors 5/5. Elbow flexors 5/5. Elbow extensors 5/5. Body And Fender Mechanic Apprentice strong. Right Lower Extremity: Hip flexors 4-/5. Hip abductors 4-/5. Knee flexors 4/5. Knee extensors 4/5. Ankle dorsiflexors 4-/5. Ankle plantarflexors 4-/5. Left Lower Extremity: Hip flexors 4-/5. Hip abductors 4-/5. Knee flexors 4/5. Knee extensors 4/5. Ankle dorsiflexors 4-/5. Ankle plantarflexors 4-/5. Bed Mobility/Transfers: Supine to sit with minimal assist of 2 Sit to supine with minimal assist of 2 Sit to stand with moderate assist of 2 Stand to sit with moderate assist of 2 Bed to reclining chair moderate assist of 2 THERA EX: 1. Seated marches x 10 2. Bilateral LAQs x 10 3. Static sitting at edge of bed for 5 minutes 4. Trunk stabilization exercises x 5 Gait: Instructed patient with level surface ambulation of 5-6 steps requiring moderate assist of 2.? B LE athetoid movement more than in B UE increasing risk for falls.? Writhing movement in trunk compounds an already compromised stability.? Has more control if movement is done slowly.? Gait significantly ataxic. Balance: Static Sitting: Fair Dynamic Sitting: Poor Static Standing: Poor Dynamic Standing: Unable Special Tests: Mobility Limitations Standardized Measure [facility] 6 clicks Basic Mobility Inpatient Short Form: Raw Score: 11? CMS Score: 73% deficit? ? ? Informed Consent/Education:? Patient was instructed in purpose of PT consult and plan of care. Agreeable to proceed with established PT POC to achieve personal goals. ASSESSMENT: Transfers will require moderate assist of 2, stand pivot transfers only. Patient demonstrates movement disorders in face, trunk, and B UE/LE which may have been chronic (or acutely exacerbated) that are negatively impacting mobility ADL performance and increasing risk for falls.? Strength in UE and LE symmetric.? Balance significantly off due to athetoid movements of B UE/LE as well as ataxia from cerebellar affectation. Prognosis for achieving goals below is fair due to co-morbid conditions, COVID-19 infection, and impaired cognition. Patient presents with clinical signs and symptoms consistent with current/admitting diagnoses that have resulted to mobility limitations, gait instability, generalized weakness, and overall ADL decline as demonstrated by the following impairment level findings: 1.? Decreased strength to B hip and knee major muscle groups 2.? Impaired sitting/standing balance 3.? Impaired activity tolerance 4.? Limitation of joint range of motion in 5.? Athetoid movements in trunk, B UE/LE 6.? Ataxic gait Impairments are contributing to the following functional limitations: 1.? Decline in bed mobility skills 2.? Decline in transfer skills 3.? Difficulty with ambulation without assistive device and physical assistance 4.? Increased completion time for mobility ADL performance 5.? Increased risk for falls 6.? Difficulty with managing steps alone safely Patient is assessed as a 41328 high complexity based on the following: History: 51-year-old female with past medical history as indicated above Examination: Demonstrable impairment in strength, balance, and mobility level with underlying impairments and functional limitations as exhibited above as well as deficit score of 69% utilizing the [facility] Mobility Inpatient Short Form Presentation: Evolving Decision Makin high complexity Goals: Goals X1 week 1. Supine-Sit contact guard assist 2. Sit-Supine contact guard assist 3. Sit-Stand contact guard assist 4. Stand-Sit contact-guard assist of 2 with FWW 5. Stand-Sit contact-guard assist of 2 with FWW 6. Chair-Bed Stand-Sit contact-guard assist of 2 with FWW 7. Fair static and dynamic standing balance/tolerance Plan of Care/Treatment Plan: 1x/day, 7 days/week x 1 week. Plan of care has been reviewed with the DIRECTOR DATA ARCHITECTURE providing the service under Physical Therapy direction. Treatment focus is as follows: increase trunk stability, increase static and dynamic sitting balance and tolerance, increase standing balance and tolerance, progress transfer independence using FWW. DISCHARGE RECOMMENDATIONS: [] Home with no services [] [] ?Home with services [specify] [] ?Home with outpatient PT [] [X] ? SNF for continued rehabilitation.? Patient will benefit from detention facility placement for continued skilled physical therapy services in order to progress mobility level, strength, and balance. [X] ? Continuum Of Care Manager Care.? May be potentially a LTC resident due to admitting diagnoses and co-morbidities [] ? SNF versus LTC based on ability to participate and progress [] TREATMENT CODE/TIME: 59219 x 20 minutes, 21259 x 117 minutes beginning at 10:31 AM. Thank you for the opportunity to participate in the care of this patient. Rosemary Allen PT, DPT, CLT [facility] [place], [place]
--- NOTE | 2021-08-17 16:57 | CHAPLAIN ---
Sarah lives at [facility], but is requiring more care than usual at the moment. I brought her a prayer shawl, which she seemed to like, just before she began working with PT. I went back later to visit and she was sleeping. On the third attempt, she had two visitors with her. She did ask for a popsicle and I got that for her. I will visit again tomorrow
[2021-08-17] MEDS: Normal Saline Flush 10 ML SYR IVP (19:32)
[2021-08-17] MEDS: busPIRone 15 MG TAB PO (21:03)
[2021-08-18] MEDS: Oxybutynin-CR 5 MG TABCR 10 MG PO (08:25)
[2021-08-18] MEDS: Amoxicillin 875/Clav. 125 TAB PO ×2 (08:26→20:58)
[2021-08-18] MEDS: levETIRAcetam 500 MG TAB 1500 MG PO ×2 (08:26→20:58)
[2021-08-18] MEDS: busPIRone 15 MG TAB 30 MG PO (08:26)
[2021-08-18] MEDS: DULoxetine 30 MG CAP 60 MG PO ×2 (08:26→20:58)
[2021-08-18] MEDS: risperiDONE 1 MG TAB 2 MG PO ×2 (08:27→20:58)
[2021-08-18] MEDS: clonazePAM 1 MG TAB PO ×2 (08:27→20:58)
[2021-08-18] MEDS: Loratidine 10 MG TAB PO (08:27)
[2021-08-18] MEDS: Fluticasone NASAL SPRAY 16 GM BTL NS (08:34)
--- NOTE | 2021-08-18 10:14 | W.NUTRFU ---
Date of service: 08/18/21 Time of Service: 09:14 Nutrition Note NOTE: Sarah admitted to swing status, awaiting transfer to hospice at SNF ([facility]). PMH: brain tumor s/p resection with Covid PNA and functional decline in recent weeks. Weight stable and wnl. Ordered soft bite sized meals with thin liquids with limited intake. Not meeting nutrient needs at this time- refusing or just taking couple sips at a time. Comfort is focus of care at this time. Will continue to honor meal/beverage preferences. Time Spent in Nutritional Counseling and Treatment: 5
--- NOTE | 2021-08-18 13:24 | PT.INTREAT ---
Date of service: 08/18/21 Time of Service: 13:01 PT Notes Visit Reasons: brain tumor, falls Inpatient Physical Therapy Treatment Note [facility] Date: 08/18/2021 PRECAUTIONS: Activity as tolerated, Fall, confusion SUBJECTIVE: Sarah indicates that she is agreeable to participating in PT. She requests to get back to bed once sitting in the chair. OBJECTIVE: Patient was difficult to understand, voice was barely audible and patient was not able to move her mouth much. PAIN: Patient did not appear to indicate pain BED MOBILITY/TRANSFERS: Supine-sit: Max A x2 with patient efforts Sit-supine: Max A x2 without patient efforts Sit-stand: Mod A x2 with patient efforts Stand-sit: Mod A x2 with patient efforts Bed-chair: Max A + Mod A with FWW Chair-bed: Max A + Mod A with FWW GAIT: Assistive Device: FWW Weight bearing: Full Assistance: Max A + Mod A Distance: 5' x2 Deviation: Narrow NORA, weakness, significant assist with FWW management, B knee flexion, cueing for posture ASSESSMENT: Patient continues to require significant assist with all bed mobility, transfers, and with gait training with FWW. She demonstrates severe global weakness and deconditioning. PLAN: Continue with global strengthening and general conditioning, as tolerated and indicated, for improved mobility and activity tolerance. TREATMENT CODE/TIME: 23 minutes; 38787 x2 (13:01)
[2021-08-18] MEDS: Dronabinol 2.5 MG CAP 5 MG PO (15:49)
[2021-08-18] MEDS: busPIRone 15 MG TAB PO (20:58)
[2021-08-19] MEDS: Amoxicillin 875/Clav. 125 TAB PO ×2 (08:12→21:42)
[2021-08-19] MEDS: risperiDONE 1 MG TAB 2 MG PO ×2 (08:12→21:43)
[2021-08-19] MEDS: Loratidine 10 MG TAB PO (08:12)
[2021-08-19] MEDS: clonazePAM 1 MG TAB PO ×2 (08:12→21:43)
[2021-08-19] MEDS: busPIRone 15 MG TAB 30 MG PO (08:14)
[2021-08-19] MEDS: levETIRAcetam 500 MG TAB 1500 MG PO ×2 (08:14→21:42)
[2021-08-19] MEDS: DULoxetine 30 MG CAP 60 MG PO ×2 (08:14→21:42)
[2021-08-19] MEDS: Oxybutynin-CR 5 MG TABCR 10 MG PO (08:14)
[2021-08-19] MEDS: Fluticasone NASAL SPRAY 16 GM BTL NS (08:15)
[2021-08-19] MEDS: Dronabinol 2.5 MG CAP 5 MG PO ×2 (11:09→17:13)
--- NOTE | 2021-08-19 16:57 | PTTR_ITS ---
Date of service: 08/19/21 Time of Service: 16:25 PT Notes Visit Reasons: Brain Tumor, Falls Inpatient Physical Therapy Treatment Note [facility] Date: 08/19/2021 PRECAUTIONS: Activity as tolerated, Fall, confusion SUBJECTIVE: Sarah indicates that she is agreeable to participating in PT, she states I'm glad you're here. OBJECTIVE: Patient was difficult to understand, voice was barely audible and pat ient was not able to move her mouth much. PAIN: Patient did not appear to indicate pain BED MOBILITY/TRANSFERS: Supine-sit: Min A x2 with patient efforts Sit-stand: Mod A x2 with patient efforts Stand-sit: Mod A x2 with patient efforts Bed-chair: Mod A x2 with FWW GAIT: Assistive Device: FWW Weight bearing: Full Assistance: Mod A x2 Distance: 6' Deviation: Narrow NORA, weakness, significant assist with FWW management, B knee flexion, cueing for posture ASSESSMENT: Patient continues to require significant assist with all bed mobility, transfers, and with gait training with FWW. She demonstrates severe global weakness and deconditioning. PLAN: Continue with global strengthening and general conditioning, as tolerated and indicated, for improved mobility and activity tolerance. TREATMENT CODE/TIME: 23 minutes; 67977 x2 (16:25)
[2021-08-19] MEDS: Scopolamine 1 MG/3 DAYS PATCH TD (17:13)
[2021-08-19] MEDS: busPIRone 15 MG TAB PO (21:42)
[2021-08-20] MEDS: levETIRAcetam 500 MG TAB 1500 MG PO ×2 (09:22→21:28)
[2021-08-20] MEDS: Oxybutynin-CR 5 MG TABCR 10 MG PO (09:22)
[2021-08-20] MEDS: risperiDONE 1 MG TAB 2 MG PO ×2 (09:23→21:28)
[2021-08-20] MEDS: Loratidine 10 MG TAB PO (09:23)
[2021-08-20] MEDS: busPIRone 15 MG TAB 30 MG PO (09:23)
[2021-08-20] MEDS: clonazePAM 1 MG TAB PO ×2 (09:23→21:29)
[2021-08-20] MEDS: Amoxicillin 875/Clav. 125 TAB PO ×2 (09:23→21:28)
[2021-08-20] MEDS: DULoxetine 30 MG CAP 60 MG PO ×2 (09:23→21:29)
[2021-08-20] MEDS: Fluticasone NASAL SPRAY 16 GM BTL NS (09:24)
--- NOTE | 2021-08-20 14:09 | CMPROGNOTE_ITS ---
- If Service Date Differs Date of service: 08/20/21 Time of Service: 14:09 Care Management Progress Note S/O: Sarah was lying in bed when CM met with her. She has a music tablet, a CPSO and her family including her daughter, sister and mother have all visited. Sarah has photo's of her family in her room and shared with CM that her daughter is a physically impaired teacher and will be teaching closer to [place] next year. 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 Sarah continues to work with PT, she denies pain and appear comfortable. Sarah has developed a chapped area around her mouth as a result of moisture from her secretions. Nursing is applying Vaseline to the area. CM spoke with patient's sister Maria L and who advises that bag balm helps clear this up. CM will check to see if Sarah's family can bring in her bag balm from home as it's non- formulary. A: 51 year old female admitted to [facility] on 08/16/21 for Acute Debility, COVID-19, Brain tumor. P: Anticipate, Sarah will discharge to the [facility] next week, pending bed elie ilability. Additional, SNF referrals will be sent out next week (if the [facility] remains closed to admission's). Sarah will continue to be followed by Palliative Care, for ongoing discussion of goals of care. Sarah's HCA/DPOA is Maria L Staley
[2021-08-20] MEDS: Dronabinol 2.5 MG CAP 5 MG PO (16:07)
[2021-08-20] MEDS: busPIRone 15 MG TAB PO (21:28)
[2021-08-21] MEDS: Amoxicillin 875/Clav. 125 TAB PO ×2 (10:03→21:22)
[2021-08-21] MEDS: DULoxetine 30 MG CAP 60 MG PO ×2 (10:03→21:23)
[2021-08-21] MEDS: clonazePAM 1 MG TAB PO ×2 (10:04→21:23)
[2021-08-21] MEDS: Loratidine 10 MG TAB PO (10:04)
[2021-08-21] MEDS: risperiDONE 1 MG TAB 2 MG PO ×2 (10:05→21:23)
[2021-08-21] MEDS: Oxybutynin-CR 5 MG TABCR 10 MG PO (10:07)
[2021-08-21] MEDS: busPIRone 15 MG TAB 30 MG PO (10:07)
[2021-08-21] MEDS: levETIRAcetam 500 MG TAB 1500 MG PO ×2 (10:09→21:21)
[2021-08-21] MEDS: Fluticasone NASAL SPRAY 16 GM BTL NS (10:12)
[2021-08-21] MEDS: Dronabinol 2.5 MG CAP 5 MG PO (12:22)
--- NOTE | 2021-08-21 12:56 | PT.INTREAT ---
Date of service: 08/21/21 Time of Service: 09:00 PT Notes Visit Reasons: Brain Tumor, Falls Inpatient Physical Therapy Treatment Note [facility] Date: 08/21/2021 PRECAUTIONS: Activities as tolerated, fall, standard and confusion SUBJECTIVE: Glad to get out of bed. Indicated she wanted to sit on commode. OBJECTIVE: OBJECTIVE: Patient was difficult to understand, voice was barely audible and patient was not able to move her mouth much. ? PAIN: No complaints of pain indicated, was asked several times if anything was hurting. ? BED MOBILITY/TRANSFERS: Supine-sit: Min A x2 with patient efforts Sit-stand: Mod A x2 with patient efforts? Stand-sit: Mod A x2 with patient efforts Bed-chair: Mod A x2 with FWW GAIT: Assistive Device: FWW Weight bearing: Full Assistance: Mod A x2 Distance: 2' bed to commode and 4' commode to recliner. Deviation: Narrow NORA, weakness, significant assist with FWW management, B knee flexion, cueing for posture? ? Ther Ex ([id number]): Worked on seated balance at edge of recliner today. Performed rhythmic stabilization exercise in this position for 10 seconds x 2 reps, LAQs, ankle pumps and seated marching for 10 reps each. ? ASSESSMENT:? Patient continues to require significant assist with all bed mobility, transfers, and with gait training with FWW.? Continues to demonstrates severe global weakness and de-conditioning. PLAN: Continue with global strengthening and general conditioning, as tolerated and indicated, for improved mobility and activity tolerance. TREATMENT CODE/TIME: 79354 and 52928, 9:00 to 9:30 am ( 30 minutes )
[2021-08-21] MEDS: busPIRone 15 MG TAB PO (21:22)
[2021-08-22 07:37] VITALS: BP 125/85; PULSE 88; RESP 16; TEMP 36.5; O2SAT 94
[2021-08-22] MEDS: risperiDONE 1 MG TAB 2 MG PO ×2 (09:35→19:20)
[2021-08-22] MEDS: Loratidine 10 MG TAB PO (09:35)
[2021-08-22] MEDS: clonazePAM 1 MG TAB PO ×2 (09:36→19:21)
[2021-08-22] MEDS: levETIRAcetam 500 MG TAB 1500 MG PO ×2 (09:37→19:22)
[2021-08-22] MEDS: DULoxetine 30 MG CAP 60 MG PO ×2 (09:39→19:21)
[2021-08-22] MEDS: busPIRone 15 MG TAB 30 MG PO (09:41)
[2021-08-22] MEDS: Oxybutynin-CR 5 MG TABCR 10 MG PO (09:41)
[2021-08-22] MEDS: Amoxicillin 875/Clav. 125 TAB PO ×2 (09:41→19:21)
[2021-08-22] MEDS: Fluticasone NASAL SPRAY 16 GM BTL NS (09:42)
--- NOTE | 2021-08-22 13:31 | PT.INTREAT ---
Date of service: 08/22/21 Time of Service: 12:32 PT Notes Visit Reasons: Brain Tumor, Falls Inpatient Physical Therapy Treatment Note [facility] Date: 08/22/2021 PRECAUTIONS: Activities as tolerated, fall, standard and confusion SUBJECTIVE: Arrived to patient's room with her sitting in recliner in tears. Had difficulty understanding her due to soft voice. She continues to appear confused. Asking me to take dishes down and indicating she needed to get to her mother by a specific time. Was willing to do her exercises and walk with walker. OBJECTIVE: ? PAIN: No complaints of pain indicated, was asked several times if anything was hurting. ? BED MOBILITY/TRANSFERS: Sit-stand: Mod A x2 with patient efforts? Stand-sit: Mod A x2 with patient efforts GAIT: Assistive Device: FWW Weight bearing: Full Assistance: mod assist x2 Distance: 10ft x 2 with short sit break in w/c Deviation: Narrow NORA, weakness, significant assist with FWW management, B knee flexion, cueing for posture? ? Ther Ex ([id number]): Worked on seated balance at edge of recliner today. Performed? LAQs, hip abd/adduction and seated marching for 10 reps x 2 sets each. Also, performed bicep curls and horizontal shoulder abd/adduction x 10 reps each.? ASSESSMENT:? Patient continues to require significant assist with transfers and gait training with FWW.? Continues to demonstrates severe global weakness and de-conditioning. PLAN: Continue with global strengthening and general conditioning, as tolerated and indicated, for improved mobility and activity tolerance. TREATMENT CODE/TIME: 18052 and 25333, 10:00 to 10:30 am ( 30 minutes )
--- NOTE | 2021-08-22 14:13 | W.PM.PROGNOT ---
Date of Service Date of service: 08/22/21 Time of Service: 13:22 Assessment and Plan Assessment and plan (1) Mouth sore: Status: Acute Assessment and plan: Crusty area on left of chin from drooling. Apply Beto cream to area, attempt to keep it dry Subjective Subjective Interval history since last seen: Sarah continues to have crusty erythema circumorally L>R. No signs of infection, no pus, not warm to touch. Appears similar to diaper dermatitis. We have been applying mupirocin without relief. We tried bag balm without relief. After discussion with the pharmacist agree to try Beto cream TID and HS for a couple of days. If it has not improved in 2 days we will try zinc (desitin). Reviewed with Dr Medina Exam Const General: cooperative, comfortable, frail appearing and ill appearing (older than stated age) chronically Nutritional Appearance: average body habitus Orientation: alert and awake HENMT Face and sinus: erythema (circumoral - left >R) Mouth: lip normal Chest Chest: normal inspection of the chest Resp Auscultation: clear to auscultation bilaterally Cardio Rate: regular rate Rhythm: regular rhythm Skin Lesions: lesion noted (old abrasion to nose healing, no erythema) Neuro Speech: abnormal speech other (dysarthria, at baseline) Extrem General: full ROM and no pedal edema Psych Mental Status: other Speech and Movement: speech and movement normal Mood: congruent mood and other Affect: normal affect Objective Last Vital Signs Temp 36.5 C 08/22/21 07:37 Pulse 88 08/22/21 07:37 Resp 16 08/22/21 07:37 BP 125/85 08/22/21 07:37 Pulse Ox 94 08/22/21 07:37 Reviewed Pertinent PMH: Yes
[2021-08-22] MEDS: Scopolamine 1 MG/3 DAYS PATCH TD (19:22)
[2021-08-22] MEDS: Normal Saline Flush 10 ML SYR IVP (21:57)
--- NOTE | 2021-08-23 03:45 | W.PM.PROGNOT ---
Date of Service Date of service: 08/23/21 Time of Service: 02:45 Subjective Subjective Interval history since last seen: Asked by nursing to evaluate the patient as she was found to have a rash on her R buttock. On evaluation, it appears to be c/w varicezella zoster in S1 dermatome on the R. Additionally, her mucositis of the lips also looks possibly like HSV. Rx'ed valtrex 1000 mg PO Q 8hrs. Objective Last Vital Signs Temp 36.5 C 08/22/21 07:37 Pulse 88 08/22/21 07:37 Resp 16 08/22/21 07:37 BP 125/85 08/22/21 07:37 Pulse Ox 94 08/22/21 07:37
[2021-08-23] MEDS: valACYclovir 1,000 MG TAB 1000 MG PO ×3 (04:48→19:17)
[2021-08-23] MEDS: Oxybutynin-CR 5 MG TABCR 10 MG PO (08:34)
[2021-08-23] MEDS: clonazePAM 1 MG TAB PO ×2 (08:34→19:18)
[2021-08-23] MEDS: Amoxicillin 875/Clav. 125 TAB PO (08:35)
[2021-08-23] MEDS: DULoxetine 30 MG CAP 60 MG PO ×2 (08:35→19:18)
[2021-08-23] MEDS: Loratidine 10 MG TAB PO (08:35)
[2021-08-23] MEDS: risperiDONE 1 MG TAB 2 MG PO ×2 (08:35→19:18)
[2021-08-23] MEDS: busPIRone 15 MG TAB 30 MG PO (08:35)
[2021-08-23] MEDS: levETIRAcetam 500 MG TAB 1500 MG PO ×2 (08:35→19:18)
[2021-08-23] MEDS: Fluticasone NASAL SPRAY 16 GM BTL NS (08:36)
[2021-08-23] MEDS: Dronabinol 2.5 MG CAP 5 MG PO ×2 (11:10→17:23)
--- NOTE | 2021-08-23 12:33 | PT.INTREAT ---
PT Notes Visit Reasons: Brain Tumor, Falls PRECAUTIONS: Activities as tolerated, fall, standard and confusion SUBJECTIVE: Pt awake in bed, confused and not able to follow instructions. Pt kept on activating alarm since pt was trying to reach for imaginary object from the floor. OBJECTIVE: ? PAIN: Not able to provide status, does not seem to be in distress or pain. ? Ther Ex ([id number]): in supine pt engaged with PROM for BUE all planes [id number] each, PROM for BLE all planes [id number] each. ? ASSESSMENT:? Pt very confused today and was deemed unsafe if transferred to the recliner due to pt constantly reaching for the floor. pt demonstarted resistance with some of the ROM for BUE with pt not providing effort to assist with movement. pt able to complete PROM given time to relax when pt starts resisting. PLAN: Continue with global strengthening and general conditioning, as tolerated and indicated, for improved mobility and activity tolerance. TREATMENT CODE/TIME: 56106, 10:30 to 10:45 am ( 15 minutes )
[2021-08-23] MEDS: Normal Saline Flush 10 ML SYR IVP (17:24)
[2021-08-23] MEDS: Amoxicillin 400 MG/Clav. 57 MG 100 ML BTL 11 ML PO (19:16)
[2021-08-24] MEDS: valACYclovir 1,000 MG TAB 1000 MG PO ×3 (03:20→20:44)
[2021-08-24] MEDS: Amoxicillin 400 MG/Clav. 57 MG 100 ML BTL 11 ML PO ×2 (08:20→20:43)
[2021-08-24] MEDS: levETIRAcetam 500 MG TAB 1500 MG PO ×2 (08:21→20:48)
[2021-08-24] MEDS: risperiDONE 1 MG TAB 2 MG PO ×2 (08:21→20:48)
[2021-08-24] MEDS: Oxybutynin-CR 5 MG TABCR 10 MG PO (08:21)
[2021-08-24] MEDS: clonazePAM 1 MG TAB PO ×2 (08:22→20:48)
[2021-08-24] MEDS: Loratidine 10 MG TAB PO (08:22)
[2021-08-24] MEDS: Fluticasone NASAL SPRAY 16 GM BTL NS (08:22)
[2021-08-24] MEDS: busPIRone 15 MG TAB 30 MG PO (08:22)
[2021-08-24] MEDS: DULoxetine 30 MG CAP 60 MG PO ×2 (08:22→20:47)
--- NOTE | 2021-08-24 10:05 | CMPROGNOTE_ITS ---
- If Service Date Differs Date of service: 08/24/21 Time of Service: 10:05 Care Management Progress Note S/O: CM spoke with Jennifer from the [facility] and sent updated progress notes at their request. Per Jennifer, they are not open to admissions, but will review Sarah's progress notes this morning to see if there is a possibility to admit pt given her recent hx of Covid. CM is waiting to hear back from the [facility]. Additionally, CM will talk with Sarah and Maria L about sending additional SNF referral's of the [facility] is unavailable to admissions. A: 51 year old female admitted to [facility] on 08/16/21 for Acute Debility, COVID-19, Brain tumor. P: Anticipate, Sarah will discharge to the [facility] next week, pending bed availability. Additional, SNF referrals will be sent out next week (if the [facility] remains closed to admission's). Sarah will continue to be followed by Palliative Care, for ongoing discussion of goals of care.
[2021-08-24] MEDS: Dronabinol 2.5 MG CAP 5 MG PO ×2 (11:15→17:10)
[2021-08-24 13:31] LABS: Source Nasal/Nares
[2021-08-24 14:28] LABS: COVID-19 PCR POSITIVE (Negative)
--- NOTE | 2021-08-24 17:02 | INPN_ITS ---
Date of service: 08/24/21 Time of Service: 17:02 PT Notes Visit Reasons: Brain Tumor, Falls Physical Therapy Inpatient Progress Note Date: 08/24/2021 Dates of Service: 08/17/2021 through 08/24/2021 Referring Doctor: Gabriella Chapman NP PT Orders: PT CONSULT: Eval/treat Precautions: Fall. Standard. Activity as tolerated. Patient Profile/Admitting Diagnosis:? Sarah is a 51-year-old female who presented to the ED with repeated falls and worsening mental status.? Patient is diagnosed with debility, brain tumor, COVID-19 infection, history of CVA, chronic ataxia, and seizure.? Another referral was made to continue working on bed mobility and transfers in anticipation of discharge to the [facility] when accepted.? Subjective: On command and with visual cueing from PT, patient is able to follow exercises with PT. Speech unintelligible most of the time, responses frequently off- tangent. Objective: General Observation: Supine in bed.? Seizure precautions on with padding provided to bed rails. IV access to R UE. Mental Status: Alert.? Speech dysarthic. Makes eye contact, can understand and follow instructions but ability to verbalize is impaired. Pain: No non-verbal expression of pain seen ROM: Right Upper Extremity: ? Shoulder Flexion WFL. Shoulder abduction WFL. Elbow flexion WFL. Wrist flexion WFL. Functional opening and closing of hand WFL. Left Upper Extremity:? Shoulder Flexion WFL. Shoulder abduction WFL. Elbow flexion WFL. Wrist flexion WFL. Functional opening and closing of hand WFL. Right Lower Extremity: Hip flexion WFL. Hip abduction WFL. Knee flexion WFL. Ankle dorsiflexion WFL. Ankle plantarflexion WFL. Left Lower Extremity: Hip flexion WFL. Hip abduction WFL. Knee flexion WFL. Ankle dorsiflexion WFL. Ankle plantarflexion WFL. Strength: Right Upper Extremity: Shoulder flexors 4/5. Shoulder abductors 4/5. Elbow flexors 5/5. Elbow extensors 5/5. Machine Splitter strong. Left Upper Extremity: Shoulder flexors 4/5. Shoulder abductors 5/5. Elbow flexors 5/5. Elbow extensors 5/5. Machine Splitter strong. Right Lower Extremity: Hip flexors 4-/5. Hip abductors 4-/5. Knee flexors 4/5. Knee extensors 4/5. Ankle dorsiflexors 4-/5. Ankle plantarflexors 4-/5. Left Lower Extremity: Hip flexors 4-/5. Hip abductors 4-/5. Knee flexors 4/5. Knee extensors 4/5. Ankle dorsiflexors 4-/5. Ankle plantarflexors 4-/5. Bed Mobility/Transfers: Deferred THERA EX: 1.? B shoulder flexion/extension x 10 2. B shoulder horizontal abduction and adduction x 10 2.? Alternate [id number] x 10 3.? Bridging x 10 Gait: Deferred Informed Consent/Education:? Patient is agreeable to continuing any exercises that she can do. ASSESSMENT: Speech intelligibility seems to have worsened from the last time she was evaluated by this PT on 08/10/2021. Recommend use of STEDY lift or assist of 2 for transfers. Continue PT at SNF to continue to assess how far mobility progression can go. No tremors seen during bed level exercises. Strength in UE and LE symmetric.? Prognosis for achieving goals below is poor to fair due to co-morbid conditions, COVID-19 infection,? and deteriorating cognition. ? Patient presents with clinical signs and symptoms consistent with current/admitting diagnoses that have resulted to mobility limitations, gait instability, generalized weakness, and overall ADL decline as demonstrated by the following impairment level findings: 1.? Decreased strength to B hip and knee major muscle groups 2.? Impaired sitting/standing balance 3.? Impaired activity tolerance 4.? Athetoid movements in trunk, B UE/LE 5.? Ataxic gait Impairments are contributing to the following functional limitations: 1.? Decline in bed mobility skills 2.? Decline in transfer skills 3.? Difficulty with ambulation without assistive device and physical assistance 4.? Increased completion time for mobility ADL performance 5.? Increased risk for falls 6.? Difficulty with managing steps alone safely 7. Inability to thrive alone at home Patient is assessed as a [id number] high complexity based on the following: History: 51-year-old female with past medical history as indicated above Examination: Demonstrable impairment in strength, balance, and mobility level with underlying impairments and functional limitations as exhibited above as well as deficit score of 69% utilizing the [facility] Mobility Inpatient Short Form Presentation: Evolving Decision Makin high complexity Goals: Goals X1 week 1. Supine-Sit contact guard assist NOT MET, CONTINUE 2. Sit-Supine contact guard assist NOT MET, CONTINUE 3. Sit-Stand contact guard assist NOT MET, CONTINUE 4. Stand-Sit contact-guard assist of 2 with FWW NOT MET, CONTINUE 5. Stand-Sit contact-guard assist of 2 with FWW NOT MET, CONTINUE 6. Chair-Bed Stand-Sit contact-guard assist of 2 with FWW NOT MET, CONTINUE 7. Fair static and dynamic standing balance/tolerance NOT MET, CONTINUE Plan of Care/Treatment Plan: 1x/day, 7 days/week x 1 week. Plan of care has been reviewed with the STEAM CLEAN MACHINE OPERATOR providing the service under Physical Therapy direction.?Treatment focus is as follows: increase trunk stability,? increase static and dynamic sitting balance and tolerance,? increase standing balance and tolerance, progress transfer independence using FWW. ? DISCHARGE RECOMMENDATIONS: []? Home with no services [] [] ?Home with services [specify] [] ?Home with outpatient PT [] [X] ? SNF for continued rehabilitation.? Patient will benefit from long-term facility placement for continued skilled physical therapy services in order to progress mobility level, strength, and balance. [X] ? [facility] Care.? May be potentially a LTC resident due to admitting diagnoses and co-morbidities [] ? SNF versus LTC based on ability to participate and progress [] TREATMENT CODE/TIME: 72798 x 34 minutes beginning at 17:02 PM. Thank you for the opportunity to participate in the care of this patient. Rosemary Allen PT, DPT, CLT [facility] [place], [place]
[2021-08-24] MEDS: busPIRone 15 MG TAB PO (20:47)
[2021-08-25] MEDS: valACYclovir 1,000 MG TAB 1000 MG PO ×2 (04:00→12:20)
[2021-08-25] MEDS: Fluticasone NASAL SPRAY 16 GM BTL NS (09:03)
[2021-08-25] MEDS: clonazePAM 1 MG TAB PO (09:03)
[2021-08-25] MEDS: DULoxetine 30 MG CAP 60 MG PO (09:03)
[2021-08-25] MEDS: busPIRone 15 MG TAB 30 MG PO (09:03)
[2021-08-25] MEDS: levETIRAcetam 500 MG TAB 1500 MG PO (09:04)
[2021-08-25] MEDS: Amoxicillin 400 MG/Clav. 57 MG 100 ML BTL 11 ML PO (09:04)
[2021-08-25] MEDS: Loratidine 10 MG TAB PO (09:06)
[2021-08-25] MEDS: Oxybutynin-CR 5 MG TABCR 10 MG PO (09:07)
[2021-08-25] MEDS: risperiDONE 1 MG TAB 2 MG PO (09:08)
--- NOTE | 2021-08-25 10:07 | DSE_ITS ---
Date of service: 08/25/21 Time of Service: 09:07 DS: Diagnosis Discharge Diagnosis (1) Mouth sore: Status: Acute (2) COVID-19: Status: Acute (3) Brain tumor: Status: Acute Discharge Plan Disposition Patient Disposition: SNF (LEVEL 1) [facility] Condition: Stable Discharge Details Reason For Visit: Brain Tumor, Falls Admit Date/Time: 08/16/21 16:01 Admit Provider: Alysia Pérez Attending Provider: Alysia Pérez Primary Care Provider: Eduardo Willis Hospital Course Hospital Course: This is a 51 year old female with complex medical history including terminal brain tumor followed by [facility] who presented to the ED from her assisted living f acility with frequent falls, ambulatory dysfunction and declining mental status.? Her work up shows no acute process to account for these changes that are due to her progression and decline of disease.? Of note she tested positive for covid august 03 but has no respiratory symptoms, she continues to test positive but is not currently thought to be actively infected as she has no symptoms.? She has been seen by neurology and palliative care.? No further treatment is recommended and her sister who is guardian and healthcare team agree with transition to comfort focused care.? She is unable to safely return to her level of care facility and was admitted here to shelter with plan to discharge to another facility.? she has been agreeable to working with physical therapy.? During her swing course she was noted to have a ?rash on her right buttock. On evaluation, it appears to be consistent with varicezella zoster in S1 dermatome on the right. Additionally, her mucositis of the lips also looks possibly like HSV. She was started on valtrex 1000 mg every 8 hours and should complete a 7 day course and will need 5 more days to complete. discharge discussed with Dr Medina. . Home Meds and New Rx's Prescriptions: New valacyclovir 1 gram Tablet 1,000 mg PO Q8H Qty: 0 0RF zinc oxide 20 % Ointment 40 g topical TID & HS Qty: 0 0RF dronabinol 2.5 mg Capsule 5 mg PO BID@1100,1600 Qty: 14 0RF scopolamine base 1 mg over 3 days Patch 3 Day 1 mg transdermal Q72H Qty: 0 0RF clotrimazole 1 % Cream 40 g topical TID & HS Qty: 0 0RF vits A and D-white pet-lanolin Ointment 40 g topical TID & HS Qty: 0 0RF buspirone 15 mg Tablet 30 mg PO QAM Qty: 0 0RF buspirone 15 mg Tablet 15 mg PO 2000 Qty: 0 0RF Continued risperidone 2 mg tablet 2 mg PO BID oxybutynin chloride [Ditropan XL] 10 mg tablet extended release 24hr 10 mg PO DAILY clonazepam 0.25 mg tablet,disintegrating 0.25 mg PO DAILY Label Comments: in the morning levetiracetam 750 mg tablet 1,500 mg PO BID Qty: 120 5RF Rx Instructions: per [facility] neuro phenytoin sodium extended 100 mg capsule 100 mg PO BID Qty: 60 11RF duloxetine 60 mg capsule,delayed release(DR/EC) 60 mg PO BID Qty: 180 3RF loratadine 10 mg tablet 10 mg PO DAILY Qty: 90 3RF fluticasone propionate 50 mcg/actuation spray,suspension 2 spray intranasal DAILY Qty: 9.9 5RF Rx Instructions: administer into each nostril Refresh Lacri-Lube 56.8-42.5 % ointment 1 applic ophthalmic (eye) 4-6XD PRN (Reason: dry eyes) Qty: 7 2RF Discontinued buspirone 15 mg tablet 15 - 30 mg PO BID Qty: 90 11RF Rx Instructions: 30 mg in AM; 15 mg In PM bebtelovimab 175 mg/2 mL (87.5 mg/mL) solution 175 mg IV ONCE Qty: 2 0RF Rx Instructions: as a single dose No Action hydrocortisone [Anti-Itch (HC)] 1 % cream 1 applic topical BID-QID PRN (Reason: skin irritation) Qty: 28.35 1RF Rx Instructions: to perioral rash calcium carbonate-vitamin D3 500 mg-5 mcg (200 unit) tablet 1 tab PO DAILY Qty: 90 3RF Ocusoft Lid Scrub Original Foam 1 applic topical DAILY Qty: 50 5RF Discharge Instructions Instructions: Gingivostomatitis (ED), Brain Tumors (DC) Stand Alone Forms: Nursing Discharge Form [facility]errals: [facility] [Outside] (routine follow up and management) Activity:: Activity as Tolerated Equipment/Supplies:: No Equipment Needed Diet:: As Tolerated Discharge Orders Discharge Orders: Discharge Order (Routine); Ordered 08/25/21 Ordered By: Gabriella Chapman DS: Summary Time Spent with Patient providing and/or coordinating discharge services: Greater than 30 minutes Status at Discharge Functional status at discharge: wheelchair bound Overall status at discharge: patient is not back to baseline Mental Status: other Speech and Movement: speech and movement normal Mood: congruent mood and other Affect: normal affect Exam Const General: cooperative, comfortable, frail appearing and ill appearing (older than stated age) chronically Nutritional Appearance: average body habitus Orientation: alert and awake HENMT Face and sinus: erythema (circumoral - left >R) Mouth: lip normal Chest Chest: normal inspection of the chest Resp Auscultation: clear to auscultation bilaterally Cardio Rate: regular rate Rhythm: regular rhythm Skin Lesions: lesion noted (old abrasion to nose healing, no erythema) and other (crusty dry lesions under mouth and right buttock) Neuro Speech: abnormal speech other (dysarthria, at baseline) Extrem General: full ROM and no pedal edema Psych Mental Status: other Speech and Movement: speech and movement normal Mood: congruent mood and other Affect: normal affect DS: Data Vitals/I&O Vitals and I&O: Vital Signs Temperature 36.5 C 08/22/21 07:37 Temperature Source Tympanic 08/22/21 07:37 Pulse 88 08/22/21 07:37 Pulse Rhythm Regular 08/20/21 16:08 Respiratory Rate 16 08/22/21 07:37 Respiratory Effort 08/20/21 16:08 Respiratory Depth Deep 08/20/21 16:08 Respiratory Pattern Irregular 08/20/21 16:08 Blood Pressure 125/85 08/22/21 07:37 Pulse Oximetry 94 08/22/21 07:37 Oxygen Delivery Method Room Air 08/22/21 07:37 Oxygen Flow Rate 0 08/22/21 07:37 Pain Level 0 08/16/21 20:01 Intake & Output 08/24/21 08/24/21 08/25/21 11:59 23:59 11:59 Intake Total 410 / 530 120 / 530 240 / 240 Output Total 400 / 400 Balance 410 / 530 120 / 530 -160 / -160 Intake: IV Oral 400 / 520 120 / 520 240 / 240 Output: Urine 400 / 400 Other: Urine Color Yellow Yellow Dark Alejandrina Urine Appearance Clear Clear Urine Odor None None Comment grossly incontinent pT was heavily incont Voiding Methods Diaper Diaper Bedpan Incontinent Incontinent Data Completed and Pending Labs on day of discharge: Labs from last 24 hours 08/24/21 13:00 COVID-19 Source Nasal/Nares SARS-CoV-2 (PCR) POSITIVE A* PFSH All Active Problems (Updated 08/15/21 @ 13:37 by Shanice Castano NP) Palliative care patient (Acute) Altered mental status (Acute) Mouth sore (Acute) Sinusitis (Acute) Discharge planning issues (Acute) Falls (Acute) Debility (Acute) COVID-19 (Acute) 08/04/21/pps Excessive cerumen in ear canal (Acute) Perioral dermatitis (Acute) Physical deconditioning (Acute) Dysarthria (Acute) Hyponatremia (Acute) Bacteria in urine (Acute) Dysarthria (Acute) Brain tumor (Acute) recurrent hemangiopericytoma; 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 RESECTED 12/10/12 and 12/14/12 perioperative infarct. 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 Anupama PARSONS Colonoscopy - MAC (05/24/13) Colonoscopy - MAC (06/19/17) Excision, Lesion (06/07/16) sacral lesion, fibroadipose tissue Excision, Lipoma (04/04/14) ABDOMINAL WALL Tonsillectomy (~1997) Family History Mother Diabetes Heart disease Hyperlipidemia Father Diabetes Essential hypertension Heart disease Hyperlipidemia Sister Diabetes Depression Brother , AGE 32 Stroke Essential hypertension Hyperlipidemia Maternal Grandfather Diabetes Stroke Paternal Grandfather No problems noted. Maternal Grandmother No problems noted. Paternal Grandmother Alzheimer disease Depression Daughter Essential hypertension Depression Social History Smoking/Tobacco Use Status: Former Tobacco Use Tobacco: How many years used: 30 Quit status: has quit before Smoking risk assessment performed?: Yes Alcohol Intake: current Alcohol Intake frequency: a few times a month Alcohol type: beer, wine and hard liquor Drug use: Never Substance use type: does not use Caregiver/Support person: No Household members: none Housing: other Details: [facility] current occupation: disable Sexually active: No Do you think of yourself as: straight/heterosexual Current gender identity: female Duration: 60-90 minutes/day Frequency: 5-6 times per week Opal/Baptist: No preference Special opal needs: No Seatbelt use: always Do you feel safe at home: Yes (unk) Do you feel safe in your relationship?: Yes
--- NOTE | 2021-08-25 10:12 | CMDISCH_ITS ---
- If Service Date Differs Date of service: 08/25/21 Time of Service: 10:12 LACE Index Scoring Tool - Questions: Length of Stay (in days): 14 or more Acuity (Admit via E.D.?): Yes Comorbidities: Cerebrovascular Disease E.D. Visits: 2 - Answers: Total Score: 13 Risk of Readmission: High Risk Care Management Discharge Reason for Hospitalization: Falls, Acute Debility, COVID-19 Discharge Plan: Sarah is discharged to [facility] via EMS. Sarah will be followed by community providers and Palliative Care for ongoing discussions about goals of care. Patient/Family Education Needs: Review discharge instruction's, limitations, medications and plan to follow up with Palliative Care. ask me three. Services Needed at Discharge: Long Term Facility ([facility]), Transportation (Via EMS ([facility]
[2021-08-25] MEDS: Dronabinol 2.5 MG CAP 5 MG PO (12:19)
--- NOTE | 2021-08-25 12:58 | NUR.NOTE ---
Nursing Note: report called to Malinda at the [facility].
== END 2021-08-25 13:10 | disposition skilled nursing facility (03) | DRG 947 ==
PROVIDERS: Nurse Practitioner Acute Care; Admitting Provider Internal Medicine; PCP Family Medicine; Visit Provider Internal Medicine
DX: R53.81 Other malaise (principal); U07.1 COVID-19; F34.9 Persistent mood [affective] disorder, unspecified; E87.1 Hypo-osmolality and hyponatremia; B02.8 Zoster with other complications; Z51.5 Encounter for palliative care; I69.393 Ataxia following cerebral infarction; R29.6 Repeated falls; Z91.81 History of falling; R53.1 Weakness; Z85.841 Personal history of malignant neoplasm of brain; Z85.038 Personal history of other malignant neoplasm of large intestine; Z90.49 Acquired absence of other specified parts of digestive tract; L71.0 Perioral dermatitis; J01.90 Acute sinusitis, unspecified; R47.1 Dysarthria and anarthria; K64.8 Other hemorrhoids; F32.A Depression, unspecified; Z87.891 Personal history of nicotine dependence; B00.1 Herpesviral vesicular dermatitis
CPT/HCPCS: 87635; 97110; 97162; 97530; 99305; 99316; 99308

== ENCOUNTER 2021-08-31 20:40 | Outpatient (REF) | payer SELFPAY ==
[2021-08-31 18:15] LABS: Abs Immature Grans 0.01 10^3/uL (0.0-0.06); Absolute Basophil Count 0.02 10^3/uL (0.0-0.2); Absolute Eosinophil Count 0.44 10^3/uL (0.0-0.7); Absolute Lymphocyte Count 1.23 10^3/uL (1.2-3.4); Absolute Neutrophil Count 2.43 10^3/uL (1.2-6.7); Basophils % 0.4; Eosinophils % 9.7; HCT 36.2 % (36.0-46.0); Immature Grans % 0.2; Lymphocytes % 27.2; MCH 28.6 pg (27.0-33.0); MCHC 33.1 % (32.0-36.0); MCV 86 fL (80-95); MPV 8.9 fL (8.0-11.0); Monocytes % 8.8; Neutrophils % 53.7; Platelet Count 320 10^3/uL (130-400); RBC 4.19 10^6/uL (3.93-5.22); RDW 14.8 % (11.7-14.6); RDW-SD 46.5 fL; WBC 4.53 10^3/uL (4.4-10.8)
[2021-08-31 19:11] LABS: Iron 54 ug/dL (50-170); Total Iron Binding Capacity 154 ug/dL (250-450); Transferrin Sat 35 % (15-50)
[2021-08-31 19:15] LABS: Hemoglobin A1C 5.5 % (<5.7)
[2021-08-31 19:54] LABS: ALT 29 U/L (14-59); AST 25 U/L (15-37); Albumin 3.3 g/dL (3.4-5.0); Alkaline Phosphatase 143 U/L (46-116); Anion Gap 7.1 mmol/L (3-11); BUN 8 mg/dL (7-18); Bilirubin, Total 0.2 mg/dL (0.2-1.0); CO2 33.9 mmol/L (21.0-32.0); CREATININE 0.6 mg/dL (0.55-1.02); Calcium 8.6 mg/dL (8.5-10.1); Chloride 99 mmol/L (98-107); Ferritin 115 ng/mL (8-252); Folate 4.5 ng/mL (8.6-20.0); Glucose 91 mg/dL (74-106); Magnesium 1.8 mg/dL (1.8-2.4); Potassium 3.6 mmol/L (3.5-5.1); Sodium 140 mmol/L (136-145); TSH (W/Ref FT4) 1.79 uIU/mL (0.36-3.74); Total Protein 6.5 g/dL (6.4-8.2); Vitamin B12 555 pg/mL (193-986)
[2021-09-02 05:28] LABS: Vitamin D 25 Total 22.5 ng/mL (30-100)
[2021-09-03 13:13] LABS: Levetiracetam 44.3 mcg/mL
== END 2021-08-31 20:41 | disposition home or self-care (01) ==
LOC: LBN 20:40
PROVIDERS: PCP Family Medicine; Visit Provider Nurse Practitioner Gerontology
DX: D48.1 Neoplasm of uncertain behavior of connective and other soft tissue (principal); R68.89 Other general symptoms and signs; Z02.89 Encounter for other administrative examinations
CPT/HCPCS: 80053; 82306; 80177; 80185; 82607; 82728; 82746; 83036; 83540; 83550; 83735; 84443; 85025

== ENCOUNTER 2021-09-07 17:25 | Outpatient (REF) | payer MEDICARE, MEDICAID, SELFPAY ==
[2021-09-07 19:25] LABS: PHENYTOIN (DILANTIN) 8.3 ug/mL (10.0-20.0)
[2021-09-09 11:16] LABS: HSV 1 DNA Result Negative (Negative); HSV 2 DNA Result Negative (Negative); HSV 2 DNA Result Positive (Negative)
[2021-09-09 16:24] LABS: Levetiracetam 51.2 mcg/mL
== END 2021-09-07 17:26 | disposition home or self-care (01) ==
LOC: LBN 17:25
PROVIDERS: PCP Family Medicine; Visit Provider Nurse Practitioner Gerontology
DX: B02.9 Zoster without complications (principal); L98.8 Other specified disorders of the skin and subcutaneous tissue; D48.1 Neoplasm of uncertain behavior of connective and other soft tissue; R56.9 Unspecified convulsions; I69.354 Hemiplegia and hemiparesis following cerebral infarction affecting left non-dominant side; Z79.899 Other long term (current) drug therapy; Z51.81 Encounter for therapeutic drug level monitoring
CPT/HCPCS: 87529; 80177; 80185

== ENCOUNTER 2022-01-27 18:27 | Outpatient (REF) | payer MEDICARE, SELFPAY ==
[2022-01-27 20:32] LABS: Bilirubin Negative (Negative); Blood Trace-intact (Negative); Clarity Sl Cloudy (Clear); Glucose Negative (Negative); Ketones Negative (Negative); Leukocyte Esterase Negative (Negative); Nitrite Positive (Negative); Specific Gravity 1.025 (1.005-1.025); Urobilinogen 0.2 EU/dL (Up TO 0.2)
[2022-01-27 20:43] LABS: Bacteria Many HPF (Negative); C & S Indicated? C&S Done As Ordered; Casts Negative LPF (Negative); Crystals Negative HPF (Negative); Epithelial Cells Few HPF (Negative); Mucus Negative (Negative); RBC 0-2 HPF (0-2)
== END 2022-01-27 18:28 | disposition home or self-care (01) ==
LOC: LBN 18:27
PROVIDERS: Nurse Practitioner Gerontology; PCP Family Medicine
DX: R68.89 Other general symptoms and signs (principal); R53.83 Other fatigue; N39.9 Disorder of urinary system, unspecified
CPT/HCPCS: 87077; 81003; 81015; 87086; 87186

== ENCOUNTER 2022-03-22 18:28 | Outpatient (REF) | payer MEDICARE, SELFPAY ==
[2022-03-22 19:59] LABS: Vitamin B12 422 pg/mL (193-986)
== END 2022-03-22 18:29 | disposition home or self-care (01) ==
LOC: LBN 18:28
PROVIDERS: PCP Family Medicine; Visit Provider Nurse Practitioner Gerontology
DX: R68.89 Other general symptoms and signs (principal)
CPT/HCPCS: 82306; 82607

== ENCOUNTER 2022-05-16 18:21 | Outpatient (REF) | payer MEDICARE, MEDICAID, SELFPAY ==
[2022-05-16 18:59] LABS: Abs Immature Grans 0.02 10^3/uL (0.0-0.06); Absolute Basophil Count 0.02 10^3/uL (0.0-0.2); Absolute Eosinophil Count 0.03 10^3/uL (0.0-0.7); Absolute Lymphocyte Count 1.82 10^3/uL (1.2-3.4); Absolute Monocyte Count 0.49 10^3/uL (0.1-0.8); Basophils % 0.2; Eosinophils % 0.3; HCT 38.5 % (36.0-46.0); HGB 12.4 g/dL (11.2-15.7); Immature Grans % 0.2; Lymphocytes % 20.5; MCH 29.2 pg (27.0-33.0); MCHC 32.2 % (32.0-36.0); MCV 91 fL (80-95); MPV 9.4 fL (8.0-11.0); Monocytes % 5.5; Neutrophils % 73.3; Platelet Count 218 10^3/uL (130-400); RBC 4.25 10^6/uL (3.93-5.22); RDW 14.6 % (11.7-14.6); RDW-SD 48.5 fL; WBC 8.88 10^3/uL (4.4-10.8)
[2022-05-16 19:13] LABS: PHENYTOIN (DILANTIN) 6.8 ug/mL (10.0-20.0)
[2022-05-16 19:15] LABS: Iron 70 ug/dL (50-170); Total Iron Binding Capacity 281 ug/dL (250-450); Transferrin Sat 25 % (15-50)
[2022-05-16 19:17] LABS: Hemoglobin A1C 5.3 % (<5.7)
[2022-05-16 19:42] LABS: ALT 31 U/L (14-59); AST 19 U/L (15-37); Albumin 3.6 g/dL (3.4-5.0); Alkaline Phosphatase 75 U/L (46-116); Anion Gap 8.8 mmol/L (3-11); BUN 19 mg/dL (7-18); Bilirubin, Total 0.2 mg/dL (0.2-1.0); CO2 30.2 mmol/L (21.0-32.0); CREATININE 0.7 mg/dL (0.55-1.02); Calcium 8.8 mg/dL (8.5-10.1); Chloride 103 mmol/L (98-107); Ferritin 19 ng/mL (8-252); Glucose 97 mg/dL (74-106); Potassium 3.9 mmol/L (3.5-5.1); Sodium 142 mmol/L (136-145); Total Protein 6.5 g/dL (6.4-8.2); Vitamin B12 396 pg/mL (193-986)
[2022-05-19 18:23] LABS: Levetiracetam 29.6 mcg/mL
== END 2022-05-16 18:22 | disposition home or self-care (01) ==
LOC: LBN 18:21
PROVIDERS: PCP Family Medicine; Visit Provider Nurse Practitioner Gerontology
DX: E55.9 Vitamin D deficiency, unspecified (principal); D51.3 Other dietary vitamin B12 deficiency anemia; R68.89 Other general symptoms and signs; Z79.899 Other long term (current) drug therapy; Z51.81 Encounter for therapeutic drug level monitoring; R56.9 Unspecified convulsions; R53.83 Other fatigue
CPT/HCPCS: 80053; 82306; 80177; 80185; 82607; 82728; 83036; 83540; 83550; 84443; 85025